=== PATIENT | male | born 1940 ===

== ENCOUNTER 2020-12-12 17:15 | Inpatient (IN) | payer MEDICARE ==
[~2020-12-12] VITALS: Ht 182.9 cm; Wt 78.7 kg
[2020-12-12 18:17] VITALS: BP 133/74
[2020-12-12 18:36] LABS: ALBUMIN/GLOBULIN RATIO 0.6 (1.0-1.7); CALCIUM 9.3 mg/dL (8.5-10.1); CREATININE 1.3 mg/dL (0.7-1.3); MAGNESIUM 2.3 mg/dL (1.8-2.4); POTASSIUM 4.1 mmol/L (3.5-5.1); TOTAL BILIRUBIN 0.6 mg/dL (0.2-1.0); TOTAL PROTEIN 7.9 g/dL (6.4-8.2)
[2020-12-12 18:52] LABS: BASO % 0 % (0-3); EOS % 0 % (0-3); HEMATOCRIT 42.4 % (39.0-53.0); HEMOGLOBIN 14.1 g/dL (13.0-17.5); LYMPH # 1.1 x10^3/uL (1.0-4.8); LYMPH % 11 % (24-48); MEAN CORPUSCULAR HEMOGLOBIN 33 pg (25-35); MEAN CORPUSCULAR HGB CONC 33 g/dL (31-37); MEAN CORPUSCULAR VOLUME 98 fL (79-100); MONO # 1.1 x10^3/uL (0.0-1.1); MONO % 11 % (0-9); NEUT # 7.4 x10^3uL (1.8-7.7); NEUT % 77 % (31-73); PLATELET COUNT 210 x10^3/uL (140-400); RED BLOOD COUNT 4.33 x10^6/uL (4.30-5.70); RED CELL DISTRIBUTION WIDTH 13.5 % (11.5-14.5); WHITE BLOOD COUNT 9.6 x10^3/uL (4.0-11.0)
[2020-12-12] MEDS ORDERED: LATA2.5D2 OU (19:42)
[2020-12-12] MEDS ORDERED: CHOL500021 PO (19:42)
[2020-12-12] MEDS ORDERED: FLUT50DI NS (19:42)
[2020-12-12] MEDS ORDERED: SERT25TA PO (19:42)
[2020-12-12] MEDS ORDERED: OLAN5TAB9 PO ×2 (19:42)
[2020-12-12] MEDS ORDERED: DONE10TA7 PO (19:42)
[2020-12-12] MEDS ORDERED: BROM2.5T15 PO (19:42)
[2020-12-12] MEDS ORDERED: QUET25TA5 PO (19:42)
[2020-12-12] MEDS ORDERED: MEMA10TA PO (19:42)
[2020-12-12] MEDS: OLANZapine 5 MG TABLET PO SCH (20:42)
[2020-12-12] MEDS: LATANOPROST 0.005% OPHTH SOLUTION 2.5ML BOTTLE. OU SCH (20:42)
[2020-12-12] MEDS: QUEtiapine 25 MG TABLET. PO PRN (20:42)
[2020-12-12] MEDS: FLUTICASONE 50MCG/NASAL SPRAY 16GM BOTTLE. NS SCH (20:42)
[2020-12-12] MEDS: DONEPEZIL HCL 10 MG TABLET PO SCH (20:42)
--- NOTE | 2020-12-12 22:08 | PDOC ---
Exam Note: Valente Note: Please also refer to the separate dictated note~for this date of service dictated separately.~Patient seen individually. Discussed the patient with Nursing staff reviewed the chart.~Reviewed interim history and current functioning. Reviewed vital signs,~Labs/ Radiology~and current medications noted below. Continue current treatment with the changes noted in the dictated addendum note Assessment: Vital Signs/I&O: Vital Signs Date Time Temp Pulse Resp B/P (MAP) Pulse Ox O2 Delivery O2 Flow Rate FiO2 12/12/20 20:30 Room Air 12/12/20 18:17 98.4 76 20 133/74 (93) 96 Labs: Laboratory Tests Test 12/12/20 18:05 12/12/20 18:10 SARS-CoV-2 Antigen (Rapid) Negative (NEGATIVE) White Blood Count 9.6 x10^3/uL (4.0-11.0) Red Blood Count 4.33 x10^6/uL (4.30-5.70) Hemoglobin 14.1 g/dL (13.0-17.5) Hematocrit 42.4 % (39.0-53.0) Mean Corpuscular Volume 98 fL (79-100) Mean Corpuscular Hemoglobin 33 pg (25-35) Mean Corpuscular Hemoglobin Concent 33 g/dL (31-37) Red Cell Distribution Width 13.5 % (11.5-14.5) Platelet Count 210 x10^3/uL (140-400) Neutrophils (%) (Auto) 77 % (31-73) H Lymphocytes (%) (Auto) 11 % (24-48) L Monocytes (%) (Auto) 11 % (0-9) H Eosinophils (%) (Auto) 0 % (0-3) Basophils (%) (Auto) 0 % (0-3) Neutrophils # (Auto) 7.4 x10^3uL (1.8-7.7) Lymphocytes # (Auto) 1.1 x10^3/uL (1.0-4.8) Monocytes # (Auto) 1.1 x10^3/uL (0.0-1.1) Eosinophils # (Auto) 0.0 x10^3/uL (0.0-0.7) Basophils # (Auto) 0.0 x10^3/uL (0.0-0.2) D-Dimer (Catrina) 5.04 mg/L (0.00-0.50) H Sodium Level 142 mmol/L (136-145) Potassium Level 4.1 mmol/L (3.5-5.1) Chloride Level 105 mmol/L (98-107) Carbon Dioxide Level 27 mmol/L (21-32) Anion Gap 10 (6-14) Blood Urea Nitrogen 41 mg/dL (8-26) H Creatinine 1.3 mg/dL (0.7-1.3) Estimated GFR (Cockcroft-Gault) 53.0 BUN/Creatinine Ratio 32 (6-20) H Glucose Level 123 mg/dL (70-99) H Calcium Level 9.3 mg/dL (8.5-10.1) Magnesium Level 2.3 mg/dL (1.8-2.4) Total Bilirubin 0.6 mg/dL (0.2-1.0) Aspartate Amino Transferase (AST) 25 U/L (15-37) Alanine Aminotransferase (ALT) 38 U/L (16-63) Alkaline Phosphatase 66 U/L (46-116) Total Protein 7.9 g/dL (6.4-8.2) Albumin 3.0 g/dL (3.4-5.0) L Albumin/Globulin Ratio 0.6 (1.0-1.7) L Current Medications: Meds: Current Medications Medications (Trade) Dose Ordered Sig/Farideh Route PRN Reason Start Time Stop Time Status Last Admin Dose Admin Donepezil HCl (Aricept) 10 mg QHS PO 12/12/20 21:00 12/12/20 20:42 Olanzapine (ZyPREXA) 5 mg QHS PO 12/12/20 21:00 12/12/20 20:42 Quetiapine Fumarate (SEROquel) 25 mg PRN Q6HRS PRN PO ANXIETY / AGITATION 12/12/20 19:45 12/12/20 20:42 I have reviewed the current psychotropics carefully including drug interactions. Risk benefit ratio favors no change other than as noted in my dictated progress note. HELIO RÍOS MD Dec 12, 2020 22:08
[2020-12-13 06:18] VITALS: BP 122/64
[2020-12-13] MEDS: SERTRALINE 25 MG TABLET. PO SCH (10:27)
[2020-12-13] MEDS: CHOLECALCIFEROL (VITAMIN D3) 1,000 UNIT TABLET PO SCH (10:27)
[2020-12-13] MEDS: MEMANTINE 10 MG TABLET. PO SCH ×2 (10:27→21:40)
[2020-12-13] MEDS: FLUTICASONE 50MCG/NASAL SPRAY 16GM BOTTLE. NS SCH ×2 (10:28→21:00)
[2020-12-13 10:55] VITALS: BP 121/73
--- NOTE | 2020-12-13 14:37 | HP ---
ADMIT DATE: 12/13/2020 HISTORY OF PRESENT ILLNESS: The patient is an 80-year-old male patient who apparently was living at home with his . However, he has been extremely agitated with aggressive behavior towards the family, progressive dementia, restless, fidgety, cannot sit still, unable to oppose or follow command, urinate in publics and progressing rapidly since 12/07. He was seen in the [facility] and was evaluated extensively there and apparently was diagnosed with dementia with behavioral disturbances. 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 However, the family was not interested in any further investigation and apparently was deemed stable to [facility] and apparently the patient was extremely restless there and very agitated, aggressive, unable to sit still, fidgety and unable to oppose or follow commands and was urinating in public and therefore, a decision was made to admit him to Med/Surg Unit in [facility] to be admitted eventually to [facility] for inpatient psychiatric stabilization. The patient is extremely demented, does not give any useful information. PAST MEDICAL HISTORY: Significant for dementia. 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 He also has paroxysmal atrial fibrillation, depression, had a history of stroke, had a CT scan showing old cerebral stroke. PAST SURGICAL HISTORY: Unremarkable. FAMILY HISTORY: Unobtainable. SOCIAL HISTORY: The patient is , living with his . Note that he has son who is his DPOA. ALLERGIES: He has no known drug allergies. MEDICATIONS: He is currently on following medications: He is on Aricept 10 mg at bedtime; sertraline 25 mg daily; olanzapine 5 mg every 4 hours as needed; olanzapine 5 mg at bedtime; quetiapine fumarate 25 mg every 6 hours; bromocriptine mesylate 2.5 mg every Thursday, Thursday, Thursday; Namenda 28 mg daily; fluticasone propionate (Flovent) 50 mcg nasal spray twice a day; latanoprost 1 drop to both eyes at bedtime and cholecalciferol ____ 4000 units once a day. REVIEW OF SYSTEMS: Unobtainable. PHYSICAL EXAMINATION: GENERAL: On arrival to the Emergency Room, the patient looked somewhat pale, but no jaundice or cyanosis. No lymphadenopathy, no thyromegaly. No jugular venous distention noted. No lower limb edema. VITAL SIGNS: His heart rate was 76, blood pressure was 133/74, temperature was 98.4, respiratory rate 20, and oxygen saturation was 96%. HEAD, EYES, EARS, NOSE AND THROAT: Normocephalic and atraumatic. NECK: Supple. HEART: Showed normal first and second heart sounds. No gallop, rub or murmur. CHEST: Clear to auscultation. No crepitation or rhonchi. ABDOMEN: Scaphoid, soft, nontender. NEUROLOGIC: He is awake, alert, opens eyes, ____ does not respond verbally. He seemed to be able to move his extremities spontaneously, although he is mostly bedbound. ASSESSMENT AND PLAN: We did reconcile all his medication and we ordered lab work including COVID-19 by PCR and once it becomes negative, the patient can be transferred upstairs for inpatient psychiatric stabilization to the [facility]. CHRIS RIOS MD DR: ELIUD/rhys JOB#: [id number] / [id number]
[2020-12-13 16:06] VITALS: BP 145/81
--- NOTE | 2020-12-13 18:36 | PN ---
DATE: 12/13/2020 SUBJECTIVE: The patient is an 80-year-old male patient who was admitted to [address] [place] [address] in [facility] as a transfer from [facility] which is memory unit at [facility] where he was admitted after short stay at [facility]. Apparently there, he has been agitated, aggressive with progressive dementia, restless, fidgety, cannot sit still, hyperverbal, unable to focus or follow command, urinating in the public, talking about the dog when there is no dog. On his most recent ER visit, the psychiatrist added Seroquel, scheduled melatonin and was placed in Memory Care Unit; however, his symptom has dramatically worsened and therefore, he was admitted to this facility. When I saw him today, he was resting flat, comfortably in bed, in no apparent distress. He continued to be nonverbal and generally grossly intact. LABORATORY DATA: Showed that his white cell count was 9600, hemoglobin 14, hematocrit 42, MCV 98 and platelet count of 210,000 with a manual differential shows 77% polymorphs, 11% lymphocytes and 11% monocytes. His D-dimer was high at 5.04. His chemistry showed a serum sodium 142, potassium 4.1, chloride 105, bicarbonate 27, anion gap of 10, BUN 41, creatinine 1.3, estimated GFR was 53 mL per minute. His glucose 123, calcium was 9.3, magnesium was 2.3. Total bilirubin, AST, ALT, alkaline phosphatase were normal. Total protein 7.9, albumin 3. His rapid coronavirus testing was negative. Medically, the patient has multiple medical problems including obviously dementia that is progressive. He has also behavioral disturbances, depression. He is known to have pituitary microadenoma, atrial fibrillation and history of cerebrovascular accident. Plan is to obviously consult, Dr. Horton to assist with his management. Once his coronavirus by PCR was negative he will be transferred to [facility] for inpatient psychiatric stabilization. CHRIS RIOS MD DR: ELIUD/rhys JOB#: [id number] / [id number]
[2020-12-13 19:47] VITALS: BP 135/68
[2020-12-13] MEDS ORDERED: ACETAMINOPHEN 325 MG TABLET PO PRN (20:00)
[2020-12-13] MEDS: LATANOPROST 0.005% OPHTH SOLUTION 2.5ML BOTTLE. OU SCH (21:00)
[2020-12-13] MEDS ORDERED: VANCOMYCIN 1.75 GM in IV NORMAL SALINE 500ML 500 ML IV ONE (21:00)
[2020-12-13 21:26] LABS: C REACTIVE PROTEIN 185.3 mg/L (0-3.3); URIC ACID 3.2 mg/dL (3.5-7.2)
--- NOTE | 2020-12-13 21:36 | RAD ---
INDICATION: Reason: ELEVATED TEMPERATURE / Spl. Instructions: / History: COMPARISON: None. FINDINGS: Single view of chest obtained. Hypoexpanded examination. No definite focal airspace consolidation or edema. Calcific atherosclerosis . Degenerative changes of shoulder and spine IMPRESSION: * Hypoexpanded exam without definite focal airspace consolidation. Electronically signed by: Arash Rangel MD (12/13/2020 9:33 PM) [id number]
[2020-12-13] MEDS: DONEPEZIL HCL 10 MG TABLET PO SCH (21:39)
[2020-12-13] MEDS: OLANZapine 5 MG TABLET PO SCH (21:40)
--- NOTE | 2020-12-13 21:49 | PDOC ---
Exam Note: Valente Note: PSYCHIATRIC CONSULT/FOLLOW UP This note is a late entry for 12/12/2020 covers elements not covered in my initial note. Subjective: The patient is an 80-year-old male seen on Room no. 111, [facility] for his psychiatric consult requested by Dr. Gilbert on account of the patients progressive confusion, history of Alzheimers disease. He had been quite aggressive, disruptive at home. He initially lived with his and daughter. He was hitting, kicking, paranoid. Reportedly outpatient treatment with Zyprexa had not been very effective. He was medically stabilized at [facility] in [place] and then was at [facility] but unmanageable at that facility due to his psychosis and agitation. We were contacted to stabilize him psychiatrically on the [facility] and he is on [facility] awaiting COVID-19 screen negative before transitioning there. Review of Systems: No CV, , pulmonary, eye, ENT system symptoms on review. Reliability poor. Mental Status Exam: The patient is oriented to himself. Insight, judgment, recent and remote memory, attention and concentration, fund of knowledge is poor consistent with his diagnoses. Laboratory Data: Reviewed. Impression: Major neurocognitive disorder Alzheimer vascular with delusion, depression, behavioral disturbance. Rest unchanged. Plan: Continue current psychotropics. Once the COVID screen is negative, we will transition to [facility] for further psychiatric stabilization. Assessment: Vital Signs/I&O: Vital Signs Date Time Temp Pulse Resp B/P (MAP) Pulse Ox O2 Delivery O2 Flow Rate FiO2 12/13/20 19:47 102.6 99 20 135/68 (90) 97 Room Air I & O 12/12/20 12/12/20 12/13/20 15:00 23:00 07:00 Intake Total 240 ml 480 ml Balance 240 ml 480 ml Labs: Laboratory Tests Test 12/13/20 20:38 Uric Acid 3.2 mg/dL (3.5-7.2) L C-Reactive Protein 185.3 mg/L (0-3.3) H Current Medications: Meds: Laboratory Tests Test 12/13/20 20:38 Uric Acid 3.2 mg/dL C-Reactive Protein 185.3 mg/L Current Medications Medications (Trade) Dose Ordered Sig/Farideh Route PRN Reason Start Time Stop Time Status Last Admin Dose Admin Vitamin D (Vitamin D3) 4,000 unit DAILY PO 12/13/20 09:00 12/13/20 10:27 Donepezil HCl (Aricept) 10 mg QHS PO 12/12/20 21:00 12/13/20 21:39 Latanoprost (Xalatan) 1 drop QHS OU 12/12/20 21:00 Memantine (Namenda) 10 mg BID PO 12/13/20 09:00 12/13/20 21:40 Olanzapine (ZyPREXA ZYDIS) 5 mg PRN Q4HRS PRN PO ANXIETY / AGITATION 12/12/20 20:00 Olanzapine (ZyPREXA) 5 mg QHS PO 12/12/20 21:00 12/13/20 21:40 Quetiapine Fumarate (SEROquel) 25 mg PRN Q6HRS PRN PO ANXIETY / AGITATION 12/12/20 19:45 12/12/20 20:42 Sertraline HCl (Zoloft) 25 mg DAILY PO 12/13/20 09:00 12/13/20 10:27 Bromocriptine Mesylate (Parlodel) 2.5 mg MoWeFr@0900 PO 12/14/20 09:00 Fluticasone Propionate (Flonase) 2 spray BID NS 12/12/20 21:00 12/13/20 10:28 Acetaminophen (Tylenol) 650 mg PRN Q6HRS PRN PO MILD PAIN / TEMP > 100.3'F 12/13/20 20:00 12/13/20 21:40 Vancomycin HCl (Vanco Per Pharmacy) 1 each PRN DAILY PRN MC SEE COMMENTS 12/13/20 22:00 Piperacillin Sod/ Tazobactam Sod 3.375 gm/Sodium Chloride 50 ml @ 100 mls/hr Q6HRS IV 12/14/20 00:00 Sodium Chloride 1,000 ml @ 100 mls/hr Q10H IV 12/13/20 21:00 Vancomycin HCl 1.75 gm/Sodium Chloride 500 ml @ 250 mls/hr 1X ONCE IV 12/13/20 21:00 12/13/20 22:59 Current Medications Medications (Trade) Dose Ordered Sig/Farideh Route PRN Reason Start Time Stop Time Status Last Admin Dose Admin Vitamin D (Vitamin D3) 4,000 unit DAILY PO 12/13/20 09:00 12/13/20 10:27 Memantine (Namenda) 10 mg BID PO 12/13/20 09:00 12/13/20 21:40 Sertraline HCl (Zoloft) 25 mg DAILY PO 12/13/20 09:00 12/13/20 10:27 Acetaminophen (Tylenol) 650 mg PRN Q6HRS PRN PO MILD PAIN / TEMP > 100.3'F 12/13/20 20:00 12/13/20 21:40 I have reviewed the current psychotropics carefully including drug interactions. Risk benefit ratio favors no change other than as noted in my dictated progress note. Diagnosis: Problems: (1) Major neurocognitive disorder (2) Dementia in Alzheimer's disease with delusions (3) Dementia in Alzheimer's disease with depression (4) Dementia of the Alzheimer's type with early onset with behavioral disturbance (5) Dementia, vascular, with depression (6) Dementia, vascular, with delusions (7) Anxiety disorder, unspecified (8) Impulse control disorder, unspecified HELIO RÍOS MD Dec 13, 2020 21:48
[2020-12-13] MEDS: IV NORMAL SALINE 1,000ML 1,000 ML IV SCH (21:52)
[2020-12-13] MEDS: VANCOMYCIN PER PHARMACY MC PRN (22:13)
[2020-12-14] MEDS: PIPERACILLIN/TAZOBACTAM 3.375 GM in IV NORMAL SALINE 50ML 50 ML IV SCH ×4 (00:06→18:00)
[2020-12-14 00:32] LABS: HEMOGLOBIN A1C 5.6 % (4.8-5.6)
--- NOTE | 2020-12-14 04:26 | EKG ---
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
[2020-12-14 05:28] VITALS: BP 114/67
[2020-12-14] MEDS: IV NORMAL SALINE 1,000ML 1,000 ML IV SCH ×2 (07:00→17:00)
[2020-12-14] MEDS: FLUTICASONE 50MCG/NASAL SPRAY 16GM BOTTLE. NS SCH ×2 (08:16→19:54)
[2020-12-14] MEDS: MEMANTINE 10 MG TABLET. PO SCH ×2 (08:19→19:53)
[2020-12-14] MEDS: SERTRALINE 25 MG TABLET. PO SCH (08:19)
[2020-12-14] MEDS: BROMOCRIPTINE MESYLATE 2.5 MG PO SCH (08:20)
[2020-12-14] MEDS: CHOLECALCIFEROL (VITAMIN D3) 1,000 UNIT TABLET PO SCH (08:20)
--- NOTE | 2020-12-14 09:05 | PDOC ---
Exam Note: Valente Note: This note is a late entry for 12/13/2020 covers elements not covered in my initial note. Subjective: The patient was reviewed on rounds on 12/13/2020. Discussed with nursing staff and reviewed the chart. Overall the patient remains confused but has not been aggressive as such. Plan was to transfer him to the [facility] ([facility]) on 12/13 but he is running a low-grade temperature, questionable gout to account for it or some undefined infection and I will defer to Dr. Gilbert and wait till he is medically stable before transitioning to [facility]. He is somewhat sedated. Review of Systems: No CV, , pulmonary, eye, ENT system symptoms on review. Reliability poor. Mental Status Exam: The patient is oriented to himself. Insight, judgment, memory is impaired. Language function intact. Mood and affect somewhat withdrawn. Laboratory Data: Reviewed. Impression: Major neurocognitive disorder Alzheimer vascular with delusion, depression, behavioral disturbance. Plan: Await transition to [facility] once medically stable. Assessment: Vital Signs/I&O: Vital Signs Date Time Temp Pulse Resp B/P (MAP) Pulse Ox O2 Delivery O2 Flow Rate FiO2 12/14/20 05:28 97.1 66 18 114/67 (83) 92 Room Air I & O 12/13/20 12/13/20 12/14/20 15:00 23:00 07:00 Intake Total 690 ml 250 ml 700 ml Balance 690 ml 250 ml 700 ml Labs: Laboratory Tests Test 12/13/20 20:38 Uric Acid 3.2 mg/dL (3.5-7.2) L C-Reactive Protein 185.3 mg/L (0-3.3) H Current Medications: Meds: Laboratory Tests Test 12/13/20 20:38 Uric Acid 3.2 mg/dL C-Reactive Protein 185.3 mg/L Current Medications Medications (Trade) Dose Ordered Sig/Farideh Route PRN Reason Start Time Stop Time Status Last Admin Dose Admin Vitamin D (Vitamin D3) 4,000 unit DAILY PO 12/13/20 09:00 12/14/20 08:20 Donepezil HCl (Aricept) 10 mg QHS PO 12/12/20 21:00 12/13/20 21:39 Latanoprost (Xalatan) 1 drop QHS OU 12/12/20 21:00 Memantine (Namenda) 10 mg BID PO 12/13/20 09:00 12/14/20 08:19 Olanzapine (ZyPREXA ZYDIS) 5 mg PRN Q4HRS PRN PO ANXIETY / AGITATION 12/12/20 20:00 Olanzapine (ZyPREXA) 5 mg QHS PO 12/12/20 21:00 12/13/20 21:40 Quetiapine Fumarate (SEROquel) 25 mg PRN Q6HRS PRN PO ANXIETY / AGITATION 12/12/20 19:45 12/12/20 20:42 Sertraline HCl (Zoloft) 25 mg DAILY PO 12/13/20 09:00 12/14/20 08:19 Bromocriptine Mesylate (Parlodel) 2.5 mg MoWeFr@0900 PO 12/14/20 09:00 12/14/20 08:20 Fluticasone Propionate (Flonase) 2 spray BID NS 12/12/20 21:00 12/14/20 08:16 Acetaminophen (Tylenol) 650 mg PRN Q6HRS PRN PO MILD PAIN / TEMP > 100.3'F 12/13/20 20:00 12/13/20 21:40 Vancomycin HCl (Vanco Per Pharmacy) 1 each PRN DAILY PRN MC SEE COMMENTS 12/13/20 22:00 12/13/20 22:13 Piperacillin Sod/ Tazobactam Sod 3.375 gm/Sodium Chloride 50 ml @ 100 mls/hr Q6HRS IV 12/14/20 00:00 12/14/20 06:05 Sodium Chloride 1,000 ml @ 100 mls/hr Q10H IV 12/13/20 21:00 12/14/20 07:00 Vancomycin HCl 1.75 gm/Sodium Chloride 500 ml @ 250 mls/hr 1X ONCE IV 12/13/20 21:00 12/13/20 22:59 DC 12/13/20 21:53 Vancomycin HCl 1.25 gm/Sodium Chloride 250 ml @ 166.667 mls/hr Q24H IV 12/14/20 21:00 Vancomycin HCl (Vancomycin Trough Level) 1 each 1X ONCE MC 12/15/20 20:30 12/15/20 20:31 Current Medications Medications (Trade) Dose Ordered Sig/Farideh Route PRN Reason Start Time Stop Time Status Last Admin Dose Admin Bromocriptine Mesylate (Parlodel) 2.5 mg MoWeFr@0900 PO 12/14/20 09:00 12/14/20 08:20 Acetaminophen (Tylenol) 650 mg PRN Q6HRS PRN PO MILD PAIN / TEMP > 100.3'F 12/13/20 20:00 12/13/20 21:40 Vancomycin HCl (Vanco Per Pharmacy) 1 each PRN DAILY PRN MC SEE COMMENTS 12/13/20 22:00 12/13/20 22:13 Piperacillin Sod/ Tazobactam Sod 3.375 gm/Sodium Chloride 50 ml @ 100 mls/hr Q6HRS IV 12/14/20 00:00 12/14/20 06:05 Sodium Chloride 1,000 ml @ 100 mls/hr Q10H IV 12/13/20 21:00 12/14/20 07:00 Vancomycin HCl 1.75 gm/Sodium Chloride 500 ml @ 250 mls/hr 1X ONCE IV 12/13/20 21:00 12/13/20 22:59 DC 12/13/20 21:53 I have reviewed the current psychotropics carefully including drug interactions. Risk benefit ratio favors no change other than as noted in my dictated progress note. Diagnosis: Problems: (1) Impulse control disorder, unspecified (2) Anxiety disorder, unspecified (3) Dementia, vascular, with depression (4) Dementia, vascular, with delusions (5) Dementia in Alzheimer's disease with depression (6) Dementia in Alzheimer's disease with delusions (7) Dementia of the Alzheimer's type with early onset with behavioral disturba nce (8) Major neurocognitive disorder HELIO RÍOS MD Dec 14, 2020 09:05
[2020-12-14 10:34] VITALS: BP 120/68
[2020-12-14 11:06] LABS: BASO # 0.1 x10^3/uL (0.0-0.2); BASO % 1 % (0-3); EOS % 0 % (0-3); HEMATOCRIT 36.5 % (39.0-53.0); HEMOGLOBIN 11.8 g/dL (13.0-17.5); LYMPH # 0.9 x10^3/uL (1.0-4.8); LYMPH % 11 % (24-48); MEAN CORPUSCULAR HEMOGLOBIN 32 pg (25-35); MEAN CORPUSCULAR HGB CONC 33 g/dL (31-37); MEAN CORPUSCULAR VOLUME 99 fL (79-100); MONO % 12 % (0-9); NEUT # 6.3 x10^3uL (1.8-7.7); NEUT % 76 % (31-73); PLATELET COUNT 182 x10^3/uL (140-400); RED BLOOD COUNT 3.68 x10^6/uL (4.30-5.70); RED CELL DISTRIBUTION WIDTH 13.3 % (11.5-14.5); WHITE BLOOD COUNT 8.3 x10^3/uL (4.0-11.0)
[2020-12-14 11:18] LABS: CALCIUM 8.4 mg/dL (8.5-10.1); CREATININE 0.9 mg/dL (0.7-1.3)
[2020-12-14 11:23] LABS: ALBUMIN 2.1 g/dL (3.4-5.0); ALBUMIN/GLOBULIN RATIO 0.5 (1.0-1.7); TOTAL BILIRUBIN 0.8 mg/dL (0.2-1.0); TOTAL PROTEIN 6.6 g/dL (6.4-8.2)
--- NOTE | 2020-12-14 11:48 | PN ---
DATE: 12/14/2020 SUBJECTIVE: The patient is resting, slightly propped up in bed, in no apparent distress. He is extremely demented; however, he did spike his temperature last night up to 102.6. There was some suggestion it might have redness around his right knee; however, there is no other localizing sign. We did pancultured him and sent urine and blood for culture and sensitivity. He has had a chest x-ray. We added also uric acid and CRP. We did start him actually on IV vancomycin and Zosyn. PHYSICAL EXAMINATION: GENERAL: When I saw him this morning, he was resting slightly propped up in bed, in no apparent respiratory distress. There was no pallor, jaundice or cyanosis. No lymphadenopathy. No thyromegaly. No jugular venous distension. No lower limb edema. VITAL SIGNS: His heart rate was 66, blood pressure was 114/67, temperature was 97.1, respiratory rate was 18, and oxygen saturation was 92%. HEAD, EYES, EARS, NOSE, AND THROAT: Showed normocephalic, atraumatic. NECK: Supple. HEART: Normal first and second heart sounds. No gallop or murmur. CHEST: Clear to auscultation. No crepitation or rhonchi. ABDOMEN: Distended, soft, nontender. NEUROLOGIC: He was demented, but without any obvious lateralizing sign. He is able to move his upper extremities without difficulty. He has severe pain whenever we passively move his lower extremities both sides. He definitely has effusion in both knees, but there is no overlying redness. His intake over the last 24 hours was 720. No output was recorded. LABORATORY DATA: His lab this morning is still pending at the time of this dictation. However, yesterday, we checked his uric acid and it was only 3.2. His C-reactive protein was 185 mg/dL, which is high. ASSESSMENT AND PLAN: 1. The patient has fever, the source of which is not very clear. Chest x-ray was unremarkable and he was supposed to have urine for urinalysis that was not done yet. My plan is to continue with IV antibiotic. I will arrange for him to have a chest x-ray of the pelvis and both hip joint as well as knee joints and decide on further management accordingly. He also has pituitary macroadenoma, for which he was on bromocriptine. 2. Paroxysmal atrial fibrillation, currently rate controlled, not anticoagulated 3. History of depression and had had a stroke. CHRIS RIOS MD DR: ELIUD/rhys JOB#: [id number] / [id number]
[2020-12-14] MEDS: QUEtiapine 25 MG TABLET. PO PRN (12:57)
--- NOTE | 2020-12-14 15:55 | RAD ---
Hip one view with pelvis. HISTORY: Pain and inability to move Single view was taken of the pelvis. The iliac crest on the left was not completely evaluated. A pelv ic fracture is not identified. There is degenerative disc disease in the lower lumbar spine. There is slight spurring from mild arthritis at the left hip. Additional views of the right hip show osteoarthritis with mild joint space narrowing and spurring on the femoral head. There is no acute fracture. IMPRESSION: 1. Mild arthritis left hip. 2. Moderate to severe osteoarthritis right hip. Electronically signed by: Ernesto Decker MD (12/14/2020 3:53 PM) [facility]
--- NOTE | 2020-12-14 15:58 | RAD ---
Bilateral knees 2 views each history: Pain Right knee 2 views the right knee show evidence of osteoarthritis. There is joint space narrowing in the medial joint compartment. There is chondrocalcinosis. There is a joint effusion. Left knee AP and lateral views of the left knee show evidence of osteoarthritis. There is joint space narrowing medially. There is chondrocalcinosis. There is a joint effusion. IMPRESSION: 1. 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 2. Bilateral chondrocalcinosis. 3. Bilateral joint effusions. Electronically signed by: Ernesto Decker MD (12/14/2020 3:55 PM) [facility]
[2020-12-14 19:37] VITALS: BP 120/74
[2020-12-14] MEDS: OLANZapine 5 MG TABLET PO SCH (19:53)
[2020-12-14] MEDS: LATANOPROST 0.005% OPHTH SOLUTION 2.5ML BOTTLE. OU SCH (19:53)
[2020-12-14] MEDS: DONEPEZIL HCL 10 MG TABLET PO SCH (19:53)
[2020-12-14] MEDS: VANCOMYCIN 1.25 GM in IV NORMAL SALINE 250ML 250 ML IV SCH (19:53)
[2020-12-15] MEDS: PIPERACILLIN/TAZOBACTAM 3.375 GM in IV NORMAL SALINE 50ML 50 ML IV SCH ×5 (00:15→23:38)
[2020-12-15 05:00] VITALS: BP 105/64
[2020-12-15] MEDS: IV NORMAL SALINE 1,000ML 1,000 ML IV SCH ×3 (05:07→23:38)
[2020-12-15] MEDS: FLUTICASONE 50MCG/NASAL SPRAY 16GM BOTTLE. NS SCH ×2 (08:56→21:15)
[2020-12-15] MEDS: MEMANTINE 10 MG TABLET. PO SCH ×2 (08:56→21:14)
[2020-12-15] MEDS: CHOLECALCIFEROL (VITAMIN D3) 1,000 UNIT TABLET PO SCH (08:56)
[2020-12-15] MEDS: SERTRALINE 25 MG TABLET. PO SCH (08:57)
[2020-12-15] MEDS ORDERED: LIDOCAINE 2% 20 ML VIAL. IJ ONE (10:15)
[2020-12-15] MEDS: NAPROXEN 500 MG TABLET PO SCH ×2 (11:30→21:14)
[2020-12-15] MEDS: QUEtiapine 25 MG TABLET. PO PRN (12:21)
[2020-12-15 15:30] LABS: HEMATOCRIT 31.2 % (39.0-53.0); HEMOGLOBIN 10.2 g/dL (13.0-17.5); RED BLOOD COUNT 3.17 x10^6/uL (4.30-5.70); RED CELL DISTRIBUTION WIDTH 13.6 % (11.5-14.5); WHITE BLOOD COUNT 5.1 x10^3/uL (4.0-11.0)
[2020-12-15 15:38] LABS: ALBUMIN 1.7 g/dL (3.4-5.0); ALBUMIN/GLOBULIN RATIO 0.4 (1.0-1.7); CALCIUM 8.1 mg/dL (8.5-10.1); CREATININE 0.9 mg/dL (0.7-1.3); POTASSIUM 3.9 mmol/L (3.5-5.1); TOTAL BILIRUBIN 0.7 mg/dL (0.2-1.0); TOTAL PROTEIN 5.6 g/dL (6.4-8.2)
[2020-12-15 19:42] VITALS: BP 97/59
[2020-12-15 20:54] LABS: VANC TR 5.2 mcg/mL (10.0-20.0)
[2020-12-15] MEDS: OLANZapine 5 MG TABLET PO SCH (21:14)
[2020-12-15] MEDS: DONEPEZIL HCL 10 MG TABLET PO SCH (21:14)
[2020-12-15] MEDS: VANCOMYCIN 1.25 GM in IV NORMAL SALINE 250ML 250 ML IV SCH (21:15)
[2020-12-15] MEDS: LATANOPROST 0.005% OPHTH SOLUTION 2.5ML BOTTLE. OU SCH (21:15)
[2020-12-16] MEDS: VANCOMYCIN PER PHARMACY MC PRN (01:41)
--- NOTE | 2020-12-16 04:20 | PN ---
DATE: SUBJECTIVE: The patient is resting flat in bed comfortably, in no apparent distress. He is extremely demented and does not really give any useful information; however, passive movement of both knee joints elicit pain. Clinically, he has bilateral knee effusion and x-ray of both knee joints showed that the patient has osteoarthritis of both knee joints. He has bilateral chondrocalcinosis and bilateral joint effusion. We did start him on IV antibiotic in the form of Zosyn and vancomycin for possible lower extremity cellulitis; however, I believe the patient's pain is mostly due to chondrocalcinosis and therefore, under strict aseptic technique, I drained about 40 mL of yellowish fluid after anesthetizing the skin. The patient tolerated the procedure very well and synovial fluid was sent for cell count, gram-stain, culture and sensitivity as well as for crystals. I will obviously continue with IV antibiotic for now and also start him on nonsteroidal anti-inflammatory medication to see if that will help the pain. PHYSICAL EXAMINATION: GENERAL: When I examined him this morning, he looked pale, but not jaundiced or cyanosed. No lymphadenopathy, no thyromegaly. No jugular venous distention. No lower limb edema. VITAL SIGNS: His heart rate was 80, blood pressure was 105/64, temperature was 98.4, respiratory rate was 16, and oxygen saturation was 96%. HEAD, EYES, EARS, NOSE AND THROAT: Showed normocephalic and atraumatic. NECK: Supple. HEART: Showed normal first and second heart sounds. No gallop, rub or murmur. CHEST: Clear to auscultation. No crepitation or rhonchi. ABDOMEN: Distended, soft, nontender. NEUROLOGIC: He is demented, but without any obvious lateralizing sign. All his cranial nerves are intact. He moves his upper extremities ____ extremities. His intake and output are incompletely recorded. LABORATORY DATA: His lab work as of yesterday showed white cell count of 6300, hemoglobin 12, hematocrit 36, MCV 99 and platelet count of 182,000. His serum sodium was 145, potassium 4, chloride 110, bicarbonate 28, anion gap of 7, BUN 28, creatinine 0.9, estimated GFR was 81 mL per minute, his glucose 124, calcium was 8.4. Total bilirubin, AST, ALT, alkaline phosphatase were normal. Total protein 6.6, albumin was 2.1. His C-reactive protein was high ____ mg/dL and procalcitonin was 1.57. ASSESSMENT: 1. Fever without any obvious source, the patient has bilateral knee effusion for which he underwent ____ aspirated 40 mL from the left knee joint, sent it for gram-stain and culture and sensitivity as well as crystals and cell count. His chest x-ray was unremarkable. 2. Other medical problems include: A. Pituitary adenoma, for which he is on bromocriptine. B. Paroxysmal atrial fibrillation, rate controlled, not anticoagulated. C. History of depression. D. The patient had a stroke. PLAN: My plan is to start him on also nonsteroidal anti-inflammatory medication and decide on further management according to his response. CHRIS RIOS MD DR: ELIUD/rhys JOB#: [id number] / [id number]
[2020-12-16] MEDS: PIPERACILLIN/TAZOBACTAM 3.375 GM in IV NORMAL SALINE 50ML 50 ML IV SCH ×3 (05:09→17:38)
[2020-12-16 05:30] VITALS: BP 131/64
[2020-12-16] MEDS: LACTOBACILLUS RHAMNOSUS GG 1 CAPSULE. PO SCH ×2 (08:00→20:36)
[2020-12-16] MEDS: CHOLECALCIFEROL (VITAMIN D3) 1,000 UNIT TABLET PO SCH (08:00)
[2020-12-16] MEDS: SERTRALINE 25 MG TABLET. PO SCH (08:00)
[2020-12-16] MEDS: MEMANTINE 10 MG TABLET. PO SCH ×2 (08:00→20:36)
[2020-12-16] MEDS: NAPROXEN 500 MG TABLET PO SCH ×2 (08:00→20:36)
[2020-12-16] MEDS: FLUTICASONE 50MCG/NASAL SPRAY 16GM BOTTLE. NS SCH ×2 (08:01→20:37)
[2020-12-16] MEDS: IV NORMAL SALINE 1,000ML 1,000 ML IV SCH ×2 (09:00→20:35)
[2020-12-16] MEDS: VANCOMYCIN 1.25 GM in IV NORMAL SALINE 250ML 250 ML IV SCH ×2 (09:31→20:36)
[2020-12-16 10:38] VITALS: BP 105/61
--- NOTE | 2020-12-16 11:21 | PN ---
DATE: 12/16/2020 SUBJECTIVE: The patient is actually doing much better. He was managed to get out of the bed and sat on the bedside, managed to feed himself. He is now able to move his lower extremities. I did aspirate about 40 mL of yellowish fluid from the left knee joint and send it for cell count and differential, also to be examined under polarized light for crystals as well as gram stain and culture and sensitivity. OBJECTIVE; GENERAL: When I saw him today, he looked well and was clearly in no apparent respiratory distress. There is no pallor, jaundice or cyanosis. No lymphadenopathy, no thyromegaly. No jugular venous distention. No lower limb edema. VITAL SIGNS: His heart rate was 65, blood pressure was 131/64, temperature was 98.3, respiratory rate was 16, and oxygen saturation was 94%. HEAD, EYES, EARS, NOSE, AND THROAT: Showed normocephalic, atraumatic. NECK: Supple. HEART: Showed normal first and second heart sounds. No gallop, rub or murmur. CHEST: Clear to auscultation. No crepitation or rhonchi. ABDOMEN: Distended, soft, nontender. NEUROLOGIC: He is demented; however, grossly all his cranial nerves are intact. He is able to move his extremities without difficulty compared to yesterday and day before. His intake was 700, output incompletely recorded. LABORATORY DATA: His lab work as of yesterday, his serum sodium 146, potassium 3.9, chloride 113, bicarbonate 25, anion gap of 8, BUN 30, creatinine 0.9, estimated GFR was 81 mL per minute, his glucose 106, calcium was 8.1. Total bilirubin, AST, ALT, alkaline phosphatase were normal. Total protein 5.6, albumin was 1.7. ASSESSMENT: 1. Fever without any obvious source. 2. The patient has bilateral knee effusion for which he underwent right knee aspiration and 40 mL of yellowish fluid was sent for gram stain, culture and sensitivity, cell count as well as to be examined under polarized light. 3. The patient has other medical problems including: A. Pituitary adenoma, for which he is on bromocriptine. B. Paroxysmal atrial fibrillation, rate controlled, not anticoagulated. C. History of depression. D. History of stroke. PLAN: My plan is to continue with naproxen. His blood culture was so far negative. Await the result of the synovial fluid culture and sensitivity. I will consult also physical and occupational therapy to work with him now that his pain is much better controlled. CHRIS RIOS MD DR: ELIUD/rhys JOB#: [id number] / [id number]
[2020-12-16 14:59] VITALS: BP 129/70
[2020-12-16] MEDS: DONEPEZIL HCL 10 MG TABLET PO SCH (20:36)
[2020-12-16] MEDS: OLANZapine 5 MG TABLET PO SCH (20:36)
[2020-12-16] MEDS: LATANOPROST 0.005% OPHTH SOLUTION 2.5ML BOTTLE. OU SCH (20:36)
[2020-12-17] MEDS: PIPERACILLIN/TAZOBACTAM 3.375 GM in IV NORMAL SALINE 50ML 50 ML IV SCH ×5 (00:34→23:11)
[2020-12-17 05:33] VITALS: BP 117/76
[2020-12-17 07:10] LABS: BASO % 1 % (0-3); EOS # 0.1 x10^3/uL (0.0-0.7); EOS % 3 % (0-3); HEMATOCRIT 32.9 % (39.0-53.0); HEMOGLOBIN 10.6 g/dL (13.0-17.5); LYMPH # 0.9 x10^3/uL (1.0-4.8); LYMPH % 19 % (24-48); MEAN CORPUSCULAR HEMOGLOBIN 32 pg (25-35); MEAN CORPUSCULAR HGB CONC 32 g/dL (31-37); MEAN CORPUSCULAR VOLUME 99 fL (79-100); MONO # 0.4 x10^3/uL (0.0-1.1); MONO % 9 % (0-9); NEUT # 3.3 x10^3uL (1.8-7.7); NEUT % 69 % (31-73); PLATELET COUNT 211 x10^3/uL (140-400); RED BLOOD COUNT 3.32 x10^6/uL (4.30-5.70); RED CELL DISTRIBUTION WIDTH 13.7 % (11.5-14.5); WHITE BLOOD COUNT 4.8 x10^3/uL (4.0-11.0)
[2020-12-17 07:25] LABS: VANC TR 16.5 mcg/mL (10.0-20.0)
[2020-12-17 07:30] LABS: ALBUMIN 1.9 g/dL (3.4-5.0); ALBUMIN/GLOBULIN RATIO 0.5 (1.0-1.7); C REACTIVE PROTEIN 111.5 mg/L (0-3.3); CALCIUM 8.2 mg/dL (8.5-10.1); CREATININE 0.7 mg/dL (0.7-1.3); GFR 108.2; POTASSIUM 3.4 mmol/L (3.5-5.1); TOTAL BILIRUBIN 0.7 mg/dL (0.2-1.0); TOTAL PROTEIN 5.7 g/dL (6.4-8.2)
[2020-12-17] MEDS: VANCOMYCIN 1.25 GM in IV NORMAL SALINE 250ML 250 ML IV SCH (09:42)
[2020-12-17] MEDS: FLUTICASONE 50MCG/NASAL SPRAY 16GM BOTTLE. NS SCH ×2 (09:43→20:20)
[2020-12-17] MEDS: LACTOBACILLUS RHAMNOSUS GG 1 CAPSULE. PO SCH ×2 (09:44→20:20)
[2020-12-17] MEDS: NAPROXEN 500 MG TABLET PO SCH ×2 (09:45→20:20)
[2020-12-17] MEDS: MEMANTINE 10 MG TABLET. PO SCH ×2 (09:45→20:20)
[2020-12-17] MEDS: CHOLECALCIFEROL (VITAMIN D3) 1,000 UNIT TABLET PO SCH (09:45)
[2020-12-17] MEDS: BROMOCRIPTINE MESYLATE 2.5 MG PO SCH (09:46)
[2020-12-17] MEDS: SERTRALINE 25 MG TABLET. PO SCH (09:55)
[2020-12-17] MEDS: QUEtiapine 25 MG TABLET. PO PRN ×2 (11:08→18:36)
--- NOTE | 2020-12-17 11:16 | PN ---
DATE: 12/17/2020 SUBJECTIVE: The patient is resting, slightly propped up in bed, in no apparent distress. He continued to be extremely confused, but now is able to move his lower extremities, although continued to be wobbly on his feet. There is no redness or tenderness in both knees. Continued to have probably some effusion, both knees. He is afebrile now for more than 72 hours. His blood culture so far negative with no growth after 3 days. His synovial fluid Gram-stain showed no organisms seen and so far, the synovial fluid cultures showed no growth. PHYSICAL EXAMINATION: GENERAL: When I examined him, he looked well and was clearly in no apparent respiratory distress, pale, but no jaundice, cyanosis or thyromegaly. No jugular venous distention. No lower limb edema. VITAL SIGNS: Her heart rate was 61, blood pressure was 117/76, temperature 97.9, respiratory rate 20, and oxygen saturation was 95% on room air. HEAD, EYES, EARS, NOSE, AND THROAT: Showed normocephalic, atraumatic. NECK: Supple. HEART: Showed normal first and second heart sounds. No gallop or murmur. CHEST: Clear to auscultation. No crepitation or rhonchi. ABDOMEN: Distended, soft, nontender. NEUROLOGIC: He was demented, but without any obvious lateralizing sign. All his cranial nerves are intact. He moves extremities without difficulty, although he is very unsteady on his feet. His intake over the last 24 hours was 1600. No output was recorded. LABORATORY DATA: As of this morning, his white cell count was 4800, hemoglobin 11, hematocrit 33, MCV 99, and platelet count 211,000 with normal manual differential. His chemistry showed a serum sodium 149, potassium 3.4, chloride 115, bicarbonate 27, anion gap of 7, BUN 23, creatinine 0.7, estimated GFR was 118 mL per minute. His glucose 95, calcium was 8.2. Total bilirubin, AST, ALT, alkaline phosphatase were normal. His C-reactive protein is down to 111 from 185. His total protein was 557, albumin was 1.9. ASSESSMENT: 1. Fever without any obvious sources so far. The blood cultures and synovial fluid culture are negative. Gram-stain showed no organisms. 2. The patient has bilateral knee effusion with x-ray showing chondrocalcinosis. I did aspirate his left knee and about 40 mL of yellowish fluid drained and was sent for Gram-stain, culture and sensitivity, cell count and also to be examined under polarized lite to detect the calcium pyrophosphate crystals. 3. The patient has multiple other medical problems including: A. Pituitary adenoma, for which he is on Bromocriptine. B. Paroxysmal atrial fibrillation, rate controlled, not anticoagulated. C. History of depression. D. History of stroke. PLAN: My plan is to discontinue the IV vancomycin and if tomorrow, all the cultures are negative including synovial fluid, we will discontinue his Zosyn and transfer [facility]. Meanwhile, we will continue with physical and occupational therapy as well naproxen. CHRIS RIOS MD DR: ELIUD/rhys JOB#: [id number] / [id number]
[2020-12-17 16:43] VITALS: BP 131/73
[2020-12-17] MEDS: DONEPEZIL HCL 10 MG TABLET PO SCH (20:20)
[2020-12-17] MEDS: OLANZapine 5 MG TABLET PO SCH (20:20)
[2020-12-17] MEDS: LATANOPROST 0.005% OPHTH SOLUTION 2.5ML BOTTLE. OU SCH (20:20)
[2020-12-18] MEDS: PIPERACILLIN/TAZOBACTAM 3.375 GM in IV NORMAL SALINE 50ML 50 ML IV SCH (05:16)
[2020-12-18 06:37] VITALS: BP 102/64
[2020-12-18] MEDS: LACTOBACILLUS RHAMNOSUS GG 1 CAPSULE. PO SCH (08:43)
[2020-12-18] MEDS: FLUTICASONE 50MCG/NASAL SPRAY 16GM BOTTLE. NS SCH (08:43)
[2020-12-18] MEDS: NAPROXEN 500 MG TABLET PO SCH (08:43)
[2020-12-18] MEDS: SERTRALINE 25 MG TABLET. PO SCH (08:43)
[2020-12-18] MEDS: CHOLECALCIFEROL (VITAMIN D3) 1,000 UNIT TABLET PO SCH (08:44)
[2020-12-18] MEDS: MEMANTINE 10 MG TABLET. PO SCH (08:44)
[2020-12-18] MEDS ORDERED: NAPR500T8 PO (10:29)
[2020-12-18] MEDS ORDERED: PANT40TA3 PO (10:40)
[2020-12-18 10:51] VITALS: BP 133/73
[2020-12-18] MEDS ORDERED: LACT1CAP19 PO (13:12)
[2020-12-18] MEDS ORDERED: BROM2.5T15 PO (13:12)
--- NOTE | 2020-12-18 13:57 | DS ---
DATE OF DISCHARGE: 12/18/2020 HOSPITAL COURSE: The patient is an 80-year-old male patient who was admitted initially to [address] [place] [address] to be screened for COVID-19 and eventually to be admitted to [facility] as the patient has been extremely agitated, with aggressive behavior towards his family, progressive dementia, restless, fidgety, cannot sit still, unable to follow command, urinate in public that all this behaviors have progressed rapidly since 12/07. He was seen at [facility] and was evaluated extensively there and apparently was diagnosed with dementia with behavioral disturbance and was found to have also pituitary microadenoma and possible normal pressure hydrocephalus; however, the family was not interested in any further investigation and was deemed stable to be discharged to [facility] long-term care facility. The patient was extremely restless there, very agitated, aggressive and difficult to ____ and he does not follow commands and was urinating in public and therefore he was admitted, had stayed there only for about a day and was transferred to [facility]. When he arrived here, the patient was found unable to walk, had severe pain in both knee joints and he also spiked his temperature up to 102, so we did blood cultures, did x-ray of his both knee joints that clinically showed that he has effusion, both of them. His x-ray of both knee joints shows evidence of osteoarthritis. There is joint space narrowing medially and there is chondrocalcinosis and joint effusion. I did aspirate the left knee joint and about 40 mL of yellowish fluid was aspirated without difficulty. The patient tolerated the procedure very well. The analysis of the synovial fluid showed the fluid was turbid with about a total of nucleated cells of 9675 of which 86% polymorphs and 4% lymphocytes. There are 10% macrophages and also 1000 RBCs. The culture sent also to be examined under polarized light, look for calcium pyrophosphate crystals. The results were still pending. His blood cultures have been negative and I spoke with Dr. Biswas who did not think that this is septic arthritis. Therefore, both antibiotics were discontinued. He actually did have a dramatic response to nonsteroidal anti-inflammatory medication in the form of naproxen. He was unable to bend both knees and he was in severe pain, now the patient is able to bend his knee, sit on the edge of the bed and stand without difficulty and therefore decision was made to transfer him to [facility] for inpatient psychiatric stabilization. PHYSICAL EXAMINATION: GENERAL: When I examined him this morning, he looked pale; no jaundice, cyanosis or thyromegaly. No jugular venous distention. No limb edema. VITAL SIGNS: His heart rate was 66, blood pressure was 102/64, temperature 97.5, respiratory rate was 18 and oxygen saturation was 95% on room air. HEAD, EYES, EARS, NOSE AND THROAT: Showed normocephalic, atraumatic. NECK: Supple. HEART: Showed normal first and second heart sounds. No gallop, rub or murmur. CHEST: Clear to auscultation. No crepitation or rhonchi. ABDOMEN: Distended, soft, nontender. NEUROLOGIC: He is demented without any obvious lateralizing sign. All his cranial nerves are intact. He moves extremities without difficulty; however, he continued to be very unsteady with his gait. His intake was 3800, no output was recorded. LABORATORY DATA: Showed white cell count 4800, hemoglobin 11, hematocrit 33, MCV 99, and platelet count 211,000. His chemistry showed serum sodium 149, potassium 3.4, chloride 115, bicarbonate 27, anion gap of 7, BUN 23, creatinine 0.7, estimated GFR was 108 mL per minute. His glucose was 95, calcium was 8.2. Total bilirubin, AST, ALT, alkaline phosphatase were normal. His C-reactive protein is down from 185 down to 111. Total protein 5.7, albumin was 1.9. His D-dimer was 5.04. His Treponema pallidum antibody was negative and coronavirus by PCR was not detectable. DISCHARGE MEDICATIONS: He was discharged to [facility] to continue on naproxen 500 mg twice a day with food for 7 more days. 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 Cholecalciferol vitamin 50,000 units, he takes actually 4000 units p.o. daily. Aricept 10 mg at bedtime, fluticasone propionate for Flonase 2 sprays to each nostril once a day, latanoprost 1 drop to both eyes at bedtime, Namenda 28 mg extended release tablet once a day, olanzapine 5 mg every 4 hours, olanzapine 5 mg at bedtime, quetiapine fumarate 25 mg p.o. p.r.n. every 6 hours and sertraline 25 mg daily. FINAL DISCHARGE DIAGNOSES: 1. Severe pain in both knee joints due to chondrocalcinosis that responded to naproxen. The patient is now able to bend his knees and walk. 2. Bilateral knee effusion with x-ray showing chondrocalcinosis. The fluid analysis was inconsistent with septic arthritis. 3. The patient has multiple other medical problems including: A. Pituitary adenoma for which he is on bromocriptine. B. Paroxysmal atrial fibrillation, rate controlled, not anticoagulated. C. History of depression. D. History of stroke. E. Dementia with behavioral disturbance. CHRIS RIOS MD DR: ELIUD/rhys JOB#: [id number] / [id number]
== END 2020-12-18 11:20 | DRG 554 ==
LOC: 1 SOUTH 17:15 → OBSVTOIN 12-14 10:43
PROVIDERS: ADMIT Internal Medicine; ATTEND Internal Medicine
DX: M11.261 Other chondrocalcinosis, right knee (principal); F02.81 Dementia in other diseases classified elsewhere, unspecified severity, with behavioral disturbance; F01.51 Vascular dementia, unspecified severity, with behavioral disturbance; M11.262 Other chondrocalcinosis, left knee; R50.9 Fever, unspecified; G30.0 Alzheimer's disease with early onset; F32.9 Major depressive disorder, single episode, unspecified; F41.9 Anxiety disorder, unspecified; M17.0 Bilateral primary osteoarthritis of knee; I48.0 Paroxysmal atrial fibrillation; M25.461 Effusion, right knee; M25.462 Effusion, left knee; D35.2 Benign neoplasm of pituitary gland; F63.9 Impulse disorder, unspecified; Z20.822 Contact with and (suspected) exposure to COVID-19; M19.90 Unspecified osteoarthritis, unspecified site; Z86.73 Personal history of transient ischemic attack (TIA), and cerebral infarction without residual deficits
CPT/HCPCS: 36415; 71045; 73521; 73560; 80053; 80202; 82306; 82607; 83036; 83735; 84145; 84443; 84550; 85025; 85027; 85379; 86140; 86592; 87040; 87070; 87426; 93005; G0378; G0379; J2543; J3370; J7040; J7050; U0003; 97530; J2001; J7030

== ENCOUNTER 2020-12-18 11:15 | Inpatient (IN) | payer MEDICARE ==
[~2020-12-18] VITALS: Ht 182.9 cm; Wt 78.7 kg
[~2020-12-18 11:15] MED LIST: BROM2.5T15 PO; CHOL500021 PO; DONE10TA7 PO; FLUT50DI NS; LATA2.5D2 OU; MEMA10TA PO; NAPR500T8 PO; OLAN5TAB9 PO; PANT40TA3 PO; QUET25TA5 PO; SERT25TA PO
[2020-12-18 11:30] VITALS: BP 146/65
[2020-12-18] MEDS ORDERED: QUEtiapine 25 MG TABLET. PO PRN (13:00)
[2020-12-18] MEDS ORDERED: OLANZapine 5 MG TABLET PO PRN (13:00)
[2020-12-18] MEDS ORDERED: LACT1CAP19 PO (13:12)
[2020-12-18] MEDS ORDERED: BROM2.5T15 PO (13:12)
[2020-12-18] MEDS ORDERED: MAG HYDROX/AL HYDROX/SIMETH 30 ML ORAL.SUSP PO PRN (13:15)
[2020-12-18] MEDS ORDERED: MAGNESIUM HYDROXIDE 2,400 MG/30 ML ORAL.SUSP. PO PRN (13:15)
[2020-12-18] MEDS ORDERED: METHYL SALICYLATE/MENTHOL TOPICAL OINTMENT 57GM TUBE. TP PRN (13:15)
[2020-12-18] MEDS ORDERED: ACETAMINOPHEN 325 MG TABLET PO PRN (13:15)
[2020-12-18 16:15] VITALS: BP 130/64
[2020-12-18] MEDS: DONEPEZIL HCL 10 MG TABLET PO SCH (19:45)
[2020-12-18] MEDS: OLANZapine 5 MG TABLET PO SCH (19:45)
[2020-12-18] MEDS: NAPROXEN 500 MG TABLET PO SCH (19:49)
[2020-12-18] MEDS: LACTOBACILLUS RHAMNOSUS GG 1 CAPSULE. PO SCH (19:49)
[2020-12-18] MEDS: FLUTICASONE 50MCG/NASAL SPRAY 16GM BOTTLE. NS SCH (19:53)
[2020-12-18] MEDS: LATANOPROST 0.005% OPHTH SOLUTION 2.5ML BOTTLE. OU SCH (19:53)
[2020-12-18] MEDS ORDERED: BUDESONIDE 0.5 MG/2 ML NEBU NEB SCH (20:00)
[2020-12-18] MEDS ORDERED: NON FORMULARY ITEM (Fluticasone Propionate (Flovent 50MCG Diskus) 50 MCG) NS SCH (21:00)
[2020-12-18] MEDS ORDERED: QUEtiapine 50 MG TABLET. PO PRN (23:15)
[2020-12-18] MEDS: traZODone 50 MG TABLET. PO PRN (23:36)
[2020-12-19] MEDS: traZODone 50 MG TABLET. PO PRN ×3 (00:30→20:56)
[2020-12-19 07:15] LABS: BASO % 1 % (0-3); EOS # 0.1 x10^3/uL (0.0-0.7); EOS % 2 % (0-3); HEMATOCRIT 31.5 % (39.0-53.0); HEMOGLOBIN 10.3 g/dL (13.0-17.5); LYMPH # 1.2 x10^3/uL (1.0-4.8); LYMPH % 22 % (24-48); MEAN CORPUSCULAR HEMOGLOBIN 32 pg (25-35); MEAN CORPUSCULAR HGB CONC 33 g/dL (31-37); MEAN CORPUSCULAR VOLUME 99 fL (79-100); MONO # 0.5 x10^3/uL (0.0-1.1); MONO % 9 % (0-9); NEUT # 3.6 x10^3uL (1.8-7.7); NEUT % 66 % (31-73); PLATELET COUNT 274 x10^3/uL (140-400); RED CELL DISTRIBUTION WIDTH 13.2 % (11.5-14.5); WHITE BLOOD COUNT 5.5 x10^3/uL (4.0-11.0)
[2020-12-19 07:20] LABS: ALBUMIN 2.1 g/dL (3.4-5.0); ALBUMIN/GLOBULIN RATIO 0.6 (1.0-1.7); CALCIUM 8.3 mg/dL (8.5-10.1); CREATININE 0.7 mg/dL (0.7-1.3); GFR 108.2; POTASSIUM 3.6 mmol/L (3.5-5.1); TOTAL BILIRUBIN 0.5 mg/dL (0.2-1.0); TOTAL PROTEIN 5.9 g/dL (6.4-8.2)
[2020-12-19] MEDS: SERTRALINE 25 MG TABLET. PO SCH (08:49)
[2020-12-19] MEDS: FLUTICASONE 50MCG/NASAL SPRAY 16GM BOTTLE. NS SCH ×2 (08:49→21:00)
[2020-12-19] MEDS: BROMOCRIPTINE MESYLATE 2.5 MG PO SCH (08:49)
[2020-12-19] MEDS: LACTOBACILLUS RHAMNOSUS GG 1 CAPSULE. PO SCH ×2 (08:49→19:56)
[2020-12-19] MEDS: CHOLECALCIFEROL (VITAMIN D3) 1,000 UNIT TABLET PO SCH (08:49)
[2020-12-19] MEDS: NAPROXEN 500 MG TABLET PO SCH ×2 (08:50→19:55)
[2020-12-19] MEDS: MEMANTINE 10 MG TABLET. PO SCH ×2 (08:50→19:56)
[2020-12-19 15:29] VITALS: BP 124/65
[2020-12-19] MEDS ORDERED: BROMOCRIPTINE MESYLATE 2.5 MG PO SCH (16:00)
[2020-12-19] MEDS: OLANZapine 5 MG TABLET PO SCH (19:55)
[2020-12-19] MEDS: DONEPEZIL HCL 10 MG TABLET PO SCH (19:56)
[2020-12-19] MEDS: LATANOPROST 0.005% OPHTH SOLUTION 2.5ML BOTTLE. OU SCH (21:00)
--- NOTE | 2020-12-20 00:20 | PSYEV ---
DATE OF SERVICE: 12/19/2020 REASON FOR ADMISSION: This 80-year-old male was transferred from the medical floor where he was admitted on 12/13/2020 because of increased agitation, aggressive behaviors towards family, progressive dementia and unable to sit still, not able to follow command, also urinating in public and according to the family, gotten worse since 12/07/2020. 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 Apparently, the family decided not to send him back to the long-term care and stated they wanted to have more treatment before he can go back. CHIEF COMPLAINT: The patient mumbling, pointing at the floor, talking to himself, not able to comprehend, confused. HISTORY OF PRESENT ILLNESS: The patient apparently made some progress during his stay on the medical floor. The patient has not presented with any major behavioral problems at this time, but he is showing significant cognitive deficits, totally dependent on ADLs. The patient is not able to communicate. The patient is not able to follow directions. 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 The patient also had a CT scan showing old cerebral stroke. PAST PSYCHIATRIC HISTORY: The patient apparently had a full workup at [facility], apparently had a CT scan. He was given the diagnosis of dementia with behavior problems. PSYCHOSOCIAL HISTORY: The patient is , living with his and son is the DPOA and no history of any abuse, physical, emotional, or sexual. No history of any alcohol or substance abuse. The patient is not able to give much information. MENTAL STATUS EXAMINATION: The patient appeared to be of stated age, casually dressed. The patient also shows increased psychomotor activity and restlessness. Speech mostly monosyllabic, not able to hold any conversation. The patient mumbling most of the time. Affect and mood showed he is anxious, confused, not aware of his surroundings. The patient is talking to himself and also distracted easily. The patient is not able to follow directions. Currently, not exhibiting any overt psychotic symptoms. He is disoriented to time, place and person. Memory, the patient is not able to participate in any memory testing because of advanced dementia. The patient's judgment impaired. Insight limited. STRENGTHS: Supportive family and the patient apparently fairly in good health. WEAKNESSES: The patient has advanced dementia. He needs total care and also exhibiting behavior problems. ADMITTING DIAGNOSES: AXIS I: 1. 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 2. Generalized anxiety disorder. AXIS II: None. AXIS III: Recent diagnosis of Alzheimer's disease, pituitary macroadenoma and normal pressure hydrocephalus. INITIAL TREATMENT PLAN: The patient will be under observation. The patient will continue on his Aricept 10 mg at bedtime, Zoloft 25 mg daily, olanzapine 5 mg q.4 hours p.r.n. and also olanzapine 5 mg at bedtime. He is also on Seroquel 25 mg q.6 hours p.r.n. The patient is also on bromocriptine 2.5 mg every Thursday, Thursday and Thursday. He is also on Namenda 28 mg daily. He is also on nasal spray twice a day, Flovent. The patient also on vitamin D3. LENGTH OF STAY: 7 days. DISCHARGE CRITERIA: The patient is able to maintain improvement without any major behavior problems for 3 consecutive days. The patient will be returning to [facility] for long-term care. BOB SOLIMAN MD DR: HORTENSIA/rhys JOB#: [id number] / [id number]
[2020-12-20 06:17] VITALS: BP 148/70
[2020-12-20 07:25] LABS: ALBUMIN 2.3 g/dL (3.4-5.0); ALBUMIN/GLOBULIN RATIO 0.6 (1.0-1.7); CALCIUM 8.4 mg/dL (8.5-10.1); CREATININE 0.8 mg/dL (0.7-1.3); GFR 92.8; POTASSIUM 3.4 mmol/L (3.5-5.1); TOTAL BILIRUBIN 0.4 mg/dL (0.2-1.0); TOTAL PROTEIN 6.2 g/dL (6.4-8.2)
[2020-12-20] MEDS: MEMANTINE 10 MG TABLET. PO SCH ×2 (08:36→19:38)
[2020-12-20] MEDS: LACTOBACILLUS RHAMNOSUS GG 1 CAPSULE. PO SCH ×2 (08:36→19:38)
[2020-12-20] MEDS: SERTRALINE 25 MG TABLET. PO SCH (08:36)
[2020-12-20] MEDS: CHOLECALCIFEROL (VITAMIN D3) 1,000 UNIT TABLET PO SCH (08:36)
[2020-12-20] MEDS: NAPROXEN 500 MG TABLET PO SCH ×2 (08:36→19:38)
[2020-12-20] MEDS: FLUTICASONE 50MCG/NASAL SPRAY 16GM BOTTLE. NS SCH ×2 (08:37→19:40)
--- NOTE | 2020-12-20 15:26 | TX PLAN ---
Interdisciplinary Tx Plan Admission Information Dec 18, 2020 at 11:15 Legal Status (on Admission): Voluntary DPOA/Guardian Name: Diana Mishra- Contact Other Contact Name: KikaRN Other Contact Phone: O)[phone] (C)[phone] Verified Code Status: DNR Allergies: Coded Allergies: No Known Drug Allergies (Unverified , 12/12/20) Diagnoses Primary Diagnosis: Per H&P: ADMITTING DIAGNOSES: AXIS I: 1. 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 2. Generalized anxiety disorder. AXIS II: None. AXIS III: Recent diagnosis of Alzheimer's disease, pituitary macroadenoma and normal pressure hydrocephalus. Reasons for Admission: Aggressive, Agitated, Confusion/Disoriented Problem in Patient's Words: Pt showing confusion, just went to [facility], and all states she was told was that he was agitated and restless. Diana states that pt has lived at home and has dementia for years, but they just made a switch to pt going to facility. Additional Admission Comments: Per intake, pt exhibits agitation, agressive behavior towards family, progressive dementia, restless, fidgety, can't sit still, hyperverbal, unable to focus of follow commands, urinates in public, and talks about a dog when there is no dog. Problems Active Problems: Restless, fidgety, hyperverbal, confusion, disorientation Inactive Problems: Aggression Pt Strengths/Limitations Ability for [place]: Poor Cognitive Functioning/Ability: Poor Communication Skills/Ability: Poor Financial Resources: Good Insight/Judgement: Poor Intellectual Ability: Fair Physical Health: Poor Social Skills: Fair Stability in Family: Good Stability in School/Work: Good Verbal Skills: Poor Discharge Criteria Discharge Criteria: Able to meet health needs, Adequate arrangements @DC, Verbal commit med comply, Improved behavior Other Discharge Comments: Will consider psychiatry upon d/c. Preliminary Discharge Plan Preliminary DC Plan: Current Living Arrange. Special Precautions Special Precautions: Agitation/Assault Fall Risk: High Other Precautions (specify): Pt was walking a few weeks ago. Initial D/C Plan Pt plan is to return to [facility] once stable. Identified Discharge Needs: Pt may need psychiatry upon discharge. Currently Utilized Resources Currently Utilized Resources/P: PCP-Dr. Juarez /DPOA-Diana Stover Son-Akhil Stover Facility-[facility] Referrals Community Resources: Will consider psychiatry Identified Problems/Hx/Goals Objectives/Short-Term Goals Short Term Goals: Control abnormal behavior, Dec. Aggression, Improved Social Skills, Medication Stabilization, Monitor Med Effects, Prevent Deterioration Short Term Goals in Patient's: Decrease agitation, aggression, and restlessness so that pt can return to [facility]. Interventions/Frequency Staff Interventions/Frequency&: Psychiatry to assess pt three times per week for medication management. Nursing to assess behaivors, monitor medications, and complete 15 minute checks daily. Social work to see pt at least two times weekly to aid in return to placement. Recreational therapy to encourage pt to participate in group activities daily. 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 Education: Pt completed high school and attended one year of college. 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 Community Follow-up PCP Community Provider/Family Inpu: /DPOA, Diana and son, Akhil provide input into pt history and is available for further information as needed. Treatment Plan Explained Patient/Drug Department Worker had this treatment plan explained to him/her as indicated by the signature below and has been given the opportunity to ask questions and make suggestions: Date: Patient/Drug Department Worker Signature: YARELI FERNANDEZ Dec 20, 2020 15:26
[2020-12-20 16:22] VITALS: BP 124/66
[2020-12-20] MEDS: OLANZapine 5 MG TABLET PO SCH (19:38)
[2020-12-20] MEDS: DONEPEZIL HCL 10 MG TABLET PO SCH (19:38)
[2020-12-20] MEDS: LATANOPROST 0.005% OPHTH SOLUTION 2.5ML BOTTLE. OU SCH (19:39)
[2020-12-20] MEDS: traZODone 50 MG TABLET. PO PRN (20:01)
--- NOTE | 2020-12-20 22:52 | PN ---
DATE: 12/20/2020 SUBJECTIVE: The patient was seen today, met with the staff, chart reviewed, also covering for Dr. Horton. The patient apparently showed some improvement, much calmer, able to communicate, still disorganized thinking. The patient is also on wheelchair. OBSERVATION: VITAL SIGNS: Temperature 97.9, blood pressure 148/70, pulse 57, respirations 20, O2 sat 94%. GENERAL: Slept about 7 hours last night. LABORATORY DATA: The patient's lab reviewed. The patient's hemoglobin was 10.3. Chemistry: Sodium 149, potassium 3.4, BUN 21. MEDICATIONS: The patient's current medications include olanzapine 5 mg q.4 hours p.r.n., Zoloft 25 mg daily, Namenda 10 mg twice a day, trazodone 50 mg at night p.r.n. and olanzapine 5 mg at night and Aricept 10 mg at night. The patient is also on Seroquel 25 mg q. 6 hours p.r.n. The patient is not having any side effects. ASSESSMENT: 1. 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 2. Generalized anxiety disorder. PLAN: To continue with the current treatment. LENGTH OF STAY: 7-10 days. BOB SOLIMAN MD DR: HORTENSIA/rhys JOB#: [id number] / [id number]
[2020-12-21 06:30] VITALS: BP 162/88
[2020-12-21] MEDS: NAPROXEN 500 MG TABLET PO SCH ×2 (08:39→19:43)
[2020-12-21] MEDS: MEMANTINE 10 MG TABLET. PO SCH ×2 (08:39→19:43)
[2020-12-21] MEDS: SERTRALINE 25 MG TABLET. PO SCH (08:39)
[2020-12-21] MEDS: LACTOBACILLUS RHAMNOSUS GG 1 CAPSULE. PO SCH ×2 (08:39→19:42)
[2020-12-21] MEDS: CHOLECALCIFEROL (VITAMIN D3) 1,000 UNIT TABLET PO SCH (08:39)
[2020-12-21] MEDS: BROMOCRIPTINE MESYLATE 2.5 MG PO SCH (08:40)
[2020-12-21] MEDS: FLUTICASONE 50MCG/NASAL SPRAY 16GM BOTTLE. NS SCH ×2 (08:40→19:42)
[2020-12-21 15:49] VITALS: BP 128/73
[2020-12-21 19:13] LABS: BACTERIA,URINE 0 /HPF (0-FEW); BILIRUBIN,URINE NEG (NEG); CLARITY,URINE CLEAR; COLOR,URINE YELLOW; GLUCOSE,URINE NEG (NEG); NITRITE,URINE NEG (NEG); RBC,URINE OCC /HPF (0-2); SQUAMOUS EPITHELIAL CELL,UR FEW /LPF; UROBILINOGEN,URINE 0.2 mg/dL (0.2 mg/dL); WBC,URINE OCC /HPF (0-4)
[2020-12-21 19:14] LABS: HYALINE CASTS, URINE OCC /HPF
[2020-12-21 19:20] LABS: THYROXINE 7.3 ug/dL (4.5-12.0)
[2020-12-21] MEDS: LATANOPROST 0.005% OPHTH SOLUTION 2.5ML BOTTLE. OU SCH (19:42)
[2020-12-21] MEDS: DONEPEZIL HCL 10 MG TABLET PO SCH (19:43)
[2020-12-21] MEDS: OLANZapine 5 MG TABLET PO SCH (19:44)
[2020-12-21] MEDS: traZODone 50 MG TABLET. PO PRN (19:49)
--- NOTE | 2020-12-21 21:00 | PN ---
DATE: 12/21/2020 SUBJECTIVE: The patient was seen today, met with the staff, chart reviewed and also covering for Dr. Horton. Staff reports that he is compliant, restless at time, pleasant and also is a fall risk. OBSERVATION: VITAL SIGNS: Temperature 97.3, blood pressure 160/85, pulse 71, respiration 18, O2 sat 94%. GENERAL: Slept about 7 hours last night. The patient's appetite is fair. CURRENT MEDICATIONS: Include olanzapine 5 mg q. 4 hours p.r.n., Zoloft 25 mg daily, Namenda 10 mg twice a day, trazodone 50 mg at night p.r.n. and olanzapine 5 mg at night and Aricept 10 mg at night. The patient is also on Seroquel 25 mg q. 6 hours p.r.n. The patient is not experiencing any side effects. ASSESSMENT: 1. 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 2. Generalized anxiety disorder. PLAN: To continue with the current treatment. LENGTH OF STAY: 7-10 days. BOB SOLIMAN MD DR: HORTENSIA/rhys JOB#: [id number] / [id number]
[2020-12-22 06:20] VITALS: BP 143/85
[2020-12-22] MEDS: NAPROXEN 500 MG TABLET PO SCH ×2 (08:25→20:10)
[2020-12-22] MEDS: MEMANTINE 10 MG TABLET. PO SCH ×2 (08:26→20:11)
[2020-12-22] MEDS: CHOLECALCIFEROL (VITAMIN D3) 1,000 UNIT TABLET PO SCH (08:26)
[2020-12-22] MEDS: SERTRALINE 25 MG TABLET. PO SCH (08:26)
[2020-12-22] MEDS: LACTOBACILLUS RHAMNOSUS GG 1 CAPSULE. PO SCH ×2 (08:26→20:09)
[2020-12-22] MEDS: FLUTICASONE 50MCG/NASAL SPRAY 16GM BOTTLE. NS SCH ×2 (08:26→20:09)
[2020-12-22 16:58] VITALS: BP_SYST 137
[2020-12-22] MEDS: LATANOPROST 0.005% OPHTH SOLUTION 2.5ML BOTTLE. OU SCH (20:09)
[2020-12-22] MEDS: traZODone 50 MG TABLET. PO PRN (20:10)
[2020-12-22] MEDS: OLANZapine 5 MG TABLET PO SCH (20:10)
[2020-12-22] MEDS: DONEPEZIL HCL 10 MG TABLET PO SCH (20:11)
--- NOTE | 2020-12-22 20:20 | PN ---
DATE: 12/22/2020 SUBJECTIVE: The patient was seen today, met with the staff, chart reviewed and also covering for Dr. Horton. The patient has been compliant with the treatment, still restless at times. OBSERVATION: VITAL SIGNS: Temperature 97.7, blood pressure 143/85, pulse 64, respirations 16, O2 sat 95%. GENERAL: Slept about 7-1/2 hours last night. The patient's appetite is fair. MEDICATIONS: The patient's current medications include olanzapine 5 mg q. 4 hours p.r.n., Zoloft 25 mg daily, Namenda 10 mg twice a day, trazodone 50 mg at night p.r.n. and olanzapine 5 mg at night. He is also on Aricept 10 mg at night and Seroquel 25 mg q. 6 hours p.r.n. The patient is not experiencing any side effects. ASSESSMENT: 1. 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 2. Generalized anxiety disorder. PLAN: To continue with the treatment. LENGTH OF STAY: 7-10 days. BOB SOLIMAN MD DR: HORTENSIA/rhys JOB#: [id number] / [id number]
--- NOTE | 2020-12-23 | PN ---
DATE: 12/22/2020 SUBJECTIVE: The patient was seen today, met with the staff, chart reviewed and also covering for Dr. Horton. Staff reports no major problems, pleasant, medication compliant. Still gets agitated easily. OBSERVATION: VITAL SIGNS: Temperature 97.7, blood pressure 143/85, pulse 64, respirations 16, O2 sat 95%. GENERAL: Slept about 7 hours last night. The patient's appetite is fair. MEDICATIONS: The patient's current medications include olanzapine 5 mg q. 4 hours p.r.n., Zoloft 25 mg daily, Namenda 10 mg twice a day, trazodone 50 mg at night p.r.n., olanzapine 5 mg at night and Aricept 10 mg at night. The patient is also on Seroquel 25 mg q. 6 hours p.r.n. The patient is not having any side effects. ASSESSMENT: 1. Dementia, most likely Alzheimer and vascular with behavioral disturbances. 2. Generalized anxiety disorder. PLAN: To continue with the current treatment. LENGTH OF STAY: 7-10 days. BOB SOLIMAN MD DR: HORTENSIA/rhys JOB#: [id number] / [id number]
[2020-12-23 06:13] VITALS: BP 170/88
[2020-12-23] MEDS: FLUTICASONE 50MCG/NASAL SPRAY 16GM BOTTLE. NS SCH ×2 (08:39→20:00)
[2020-12-23] MEDS: NAPROXEN 500 MG TABLET PO SCH ×2 (08:39→20:02)
[2020-12-23] MEDS: LACTOBACILLUS RHAMNOSUS GG 1 CAPSULE. PO SCH ×2 (08:40→20:02)
[2020-12-23] MEDS: MEMANTINE 10 MG TABLET. PO SCH ×2 (08:40→20:04)
[2020-12-23] MEDS: CHOLECALCIFEROL (VITAMIN D3) 1,000 UNIT TABLET PO SCH (08:40)
[2020-12-23] MEDS: SERTRALINE 25 MG TABLET. PO SCH (08:40)
[2020-12-23 16:23] VITALS: BP 146/79
[2020-12-23] MEDS: LATANOPROST 0.005% OPHTH SOLUTION 2.5ML BOTTLE. OU SCH (20:00)
[2020-12-23] MEDS: DONEPEZIL HCL 10 MG TABLET PO SCH (20:01)
[2020-12-23] MEDS: OLANZapine 5 MG TABLET PO SCH (20:04)
--- NOTE | 2020-12-23 23:10 | PN ---
DATE: 12/23/2020 SUBJECTIVE: The patient was seen today, met with the staff, chart reviewed. Staff reports no major behavior problems, still confused and episodes of increased agitation. OBSERVATION: VITAL SIGNS: Temperature 97.7, blood pressure 170/88, pulse 70, respirations 16, O2 sat 95%. GENERAL: Slept about 8 hours last night. The patient's appetite is normal. MEDICATIONS: The patient's current medications include olanzapine 5 mg q. 4 hours p.r.n., Zoloft 25 mg daily, Namenda 10 mg b.i.d., trazodone 50 mg at night, olanzapine 5 mg at night, Aricept 10 mg at night, also Seroquel 25 mg q. 4 hours p.r.n. LABORATORY DATA: The patient's lab reviewed. ASSESSMENT: 1. 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 2. Generalized anxiety disorder. PLAN: To continue with the treatment. LENGTH OF STAY: 7-10 days. BOB SOLIMAN MD DR: HORTENSIA/rhys JOB#: [id number] / [id number]
[2020-12-24 06:20] VITALS: BP 167/74
[2020-12-24] MEDS: CHOLECALCIFEROL (VITAMIN D3) 1,000 UNIT TABLET PO SCH (07:35)
[2020-12-24] MEDS: NAPROXEN 500 MG TABLET PO SCH ×2 (07:35→20:15)
[2020-12-24] MEDS: SERTRALINE 25 MG TABLET. PO SCH (07:35)
[2020-12-24] MEDS: MEMANTINE 10 MG TABLET. PO SCH ×2 (07:36→20:15)
[2020-12-24] MEDS: BROMOCRIPTINE MESYLATE 2.5 MG PO SCH (07:36)
[2020-12-24] MEDS: LACTOBACILLUS RHAMNOSUS GG 1 CAPSULE. PO SCH ×2 (07:36→20:15)
[2020-12-24] MEDS: FLUTICASONE 50MCG/NASAL SPRAY 16GM BOTTLE. NS SCH ×2 (09:00→16:06)
[2020-12-24 15:46] VITALS: BP 115/54
[2020-12-24] MEDS: DONEPEZIL HCL 10 MG TABLET PO SCH (20:15)
[2020-12-24] MEDS: OLANZapine 5 MG TABLET PO SCH (20:15)
[2020-12-24] MEDS: LATANOPROST 0.005% OPHTH SOLUTION 2.5ML BOTTLE. OU SCH (20:15)
[2020-12-24] MEDS: traZODone 50 MG TABLET. PO PRN (20:15)
--- NOTE | 2020-12-24 20:52 | PN ---
DATE: 12/24/2020 SUBJECTIVE: The patient was seen today, met with the staff, chart reviewed and also covering for Dr. Horton. Staff reports no major behavior problems, except restless at times. He is redirectable, mostly pleasant and medication compliant. OBSERVATION: VITAL SIGNS: Temperature 97.5, blood pressure 167/74, pulse 63, respirations 20, O2 sat 95%. GENERAL: Slept about 7 hours last night. The patient's appetite is fair. MEDICATIONS: The patient's current medications include Zoloft 25 mg daily, Namenda 10 mg twice a day, trazodone 50 mg at night p.r.n. He is also on olanzapine 5 mg at night and Aricept 10 mg at night. The patient is also on Seroquel 25 mg q. 6 hours p.r.n. for severe agitation. The patient is not experiencing any side effects. ASSESSMENT: 1. 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 2. Generalized anxiety disorder. PLAN: To continue with the treatment. LENGTH OF STAY: 7 days. BOB SOLIMAN MD DR: HORTENSIA/rhys JOB#: [id number] / [id number]
[2020-12-25 06:12] VITALS: BP 165/79
[2020-12-25] MEDS: CHOLECALCIFEROL (VITAMIN D3) 1,000 UNIT TABLET PO SCH (07:57)
[2020-12-25] MEDS: MEMANTINE 10 MG TABLET. PO SCH ×2 (07:57→19:45)
[2020-12-25] MEDS: SERTRALINE 25 MG TABLET. PO SCH (07:57)
[2020-12-25] MEDS: NAPROXEN 500 MG TABLET PO SCH ×2 (07:57→19:45)
[2020-12-25] MEDS: FLUTICASONE 50MCG/NASAL SPRAY 16GM BOTTLE. NS SCH ×2 (07:57→19:44)
[2020-12-25] MEDS: LACTOBACILLUS RHAMNOSUS GG 1 CAPSULE. PO SCH ×2 (07:57→19:45)
[2020-12-25 16:06] VITALS: BP 145/87
[2020-12-25] MEDS: traZODone 50 MG TABLET. PO PRN (19:44)
[2020-12-25] MEDS: LATANOPROST 0.005% OPHTH SOLUTION 2.5ML BOTTLE. OU SCH (19:44)
[2020-12-25] MEDS: DONEPEZIL HCL 10 MG TABLET PO SCH (19:45)
[2020-12-25] MEDS: OLANZapine 5 MG TABLET PO SCH (19:45)
[2020-12-26 06:10] VITALS: BP 169/89
[2020-12-26 06:24] LABS: BASO # 0.1 x10^3/uL (0.0-0.2); BASO % 1 % (0-3); EOS % 1 % (0-3); HEMATOCRIT 35.8 % (39.0-53.0); HEMOGLOBIN 11.8 g/dL (13.0-17.5); LYMPH # 1.8 x10^3/uL (1.0-4.8); LYMPH % 31 % (24-48); MEAN CORPUSCULAR HEMOGLOBIN 32 pg (25-35); MEAN CORPUSCULAR HGB CONC 33 g/dL (31-37); MEAN CORPUSCULAR VOLUME 97 fL (79-100); MONO # 0.5 x10^3/uL (0.0-1.1); MONO % 10 % (0-9); NEUT # 3.3 x10^3uL (1.8-7.7); NEUT % 57 % (31-73); PLATELET COUNT 385 x10^3/uL (140-400); RED CELL DISTRIBUTION WIDTH 13.6 % (11.5-14.5); WHITE BLOOD COUNT 5.8 x10^3/uL (4.0-11.0)
[2020-12-26 06:42] LABS: ALBUMIN 2.8 g/dL (3.4-5.0); ALBUMIN/GLOBULIN RATIO 0.7 (1.0-1.7); CALCIUM 8.9 mg/dL (8.5-10.1); CREATININE 0.9 mg/dL (0.7-1.3); TOTAL BILIRUBIN 0.4 mg/dL (0.2-1.0); TOTAL PROTEIN 6.7 g/dL (6.4-8.2)
[2020-12-26] MEDS: CHOLECALCIFEROL (VITAMIN D3) 1,000 UNIT TABLET PO SCH (08:19)
[2020-12-26] MEDS: MEMANTINE 10 MG TABLET. PO SCH ×2 (08:20→20:27)
[2020-12-26] MEDS: NAPROXEN 500 MG TABLET PO SCH ×2 (08:20→20:27)
[2020-12-26] MEDS: LACTOBACILLUS RHAMNOSUS GG 1 CAPSULE. PO SCH ×2 (08:20→20:27)
[2020-12-26] MEDS: BROMOCRIPTINE MESYLATE 2.5 MG PO SCH (08:20)
[2020-12-26] MEDS: SERTRALINE 25 MG TABLET. PO SCH (08:21)
[2020-12-26] MEDS: FLUTICASONE 50MCG/NASAL SPRAY 16GM BOTTLE. NS SCH ×2 (08:21→20:27)
[2020-12-26 16:16] VITALS: BP 129/72
[2020-12-26] MEDS: OLANZapine 5 MG TABLET PO SCH (20:27)
[2020-12-26] MEDS: LATANOPROST 0.005% OPHTH SOLUTION 2.5ML BOTTLE. OU SCH (20:27)
[2020-12-26] MEDS: traZODone 50 MG TABLET. PO PRN (20:27)
[2020-12-26] MEDS: DONEPEZIL HCL 10 MG TABLET PO SCH (20:27)
--- NOTE | 2020-12-26 21:41 | PN ---
DATE: 12/25/2020 This is the late entry for the service date 12/25/2020. SUBJECTIVE: Staff reports no major behavior problems. He is redirectable, mostly pleasant and confused. OBSERVATION: VITAL SIGNS: Temperature 97.4, blood pressure 165/79, pulse 57, respirations 20, O2 sat 98%. GENERAL: Slept about 7 hours last night. LABORATORY DATA: The patient's lab reviewed. MEDICATIONS: The patient's current medications include Zoloft 25 mg daily, Namenda 10 mg twice a day, trazodone 50 mg at night p.r.n. The patient is also on olanzapine 5 mg at night and Aricept 10 mg at night. The patient is not experiencing any side effects. ASSESSMENT: 1. 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 2. Generalized anxiety disorder. PLAN: To continue with the treatment. LENGTH OF STAY: 7 days. BOB SOLIMAN MD DR: HORTENSIA/rhys JOB#: [id number] / [id number]
--- NOTE | 2020-12-26 22:59 | PN ---
DATE: 12/26/2020 SUBJECTIVE: The patient was seen today, met with the staff, chart reviewed. The patient has not presented with any major behavior problems. Mostly pleasant, but confused. OBSERVATION: VITAL SIGNS: Temperature 98.1, blood pressure 169/89, pulse 58, respirations 16, O2 sat 97%. GENERAL: Slept about 6 hours last night. The patient's appetite is fair. CURRENT MEDICATIONS: Include Zoloft 25 mg daily, Namenda 10 mg twice a day, trazodone 50 mg at night. The patient is also on olanzapine 5 mg at night and Aricept 10 mg at night. The patient is not having any side effects to medications. LABORATORY DATA: Reviewed. ASSESSMENT: 1. 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 2. Generalized anxiety disorder. PLAN: To continue with the treatment. LENGTH OF STAY: 7 days. BOB SOLIMAN MD DR: HORTENSIA/rhys JOB#: [id number] / [id number]
[2020-12-27 05:54] VITALS: BP 148/84
[2020-12-27] MEDS: NAPROXEN 500 MG TABLET PO SCH ×2 (08:22→20:53)
[2020-12-27] MEDS: SERTRALINE 25 MG TABLET. PO SCH (08:22)
[2020-12-27] MEDS: FLUTICASONE 50MCG/NASAL SPRAY 16GM BOTTLE. NS SCH ×2 (08:22→20:53)
[2020-12-27] MEDS: CHOLECALCIFEROL (VITAMIN D3) 1,000 UNIT TABLET PO SCH (08:22)
[2020-12-27] MEDS: MEMANTINE 10 MG TABLET. PO SCH ×2 (08:22→20:54)
[2020-12-27] MEDS: LACTOBACILLUS RHAMNOSUS GG 1 CAPSULE. PO SCH ×2 (08:22→20:54)
--- NOTE | 2020-12-27 16:09 | TX PLAN ---
Interdisciplinary Tx Plan Admission Information Dec 18, 2020 at 11:15 Legal Status (on Admission): Voluntary DPOA/Guardian Name: Diana Mishra- Contact Other Contact Name: KikaRN Other Contact Phone: [phone] Verified Code Status: DNR Allergies: Coded Allergies: No Known Drug Allergies (Unverified , 12/12/20) Diagnoses Primary Diagnosis: Per H&P: ADMITTING DIAGNOSES: AXIS I: 1. 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 2. Generalized anxiety disorder. AXIS II: None. AXIS III: Recent diagnosis of Alzheimer's disease, pituitary macroadenoma and normal pressure hydrocephalus. Reasons for Admission: Aggressive, Agitated, Confusion/Disoriented Problem in Patient's Words: Pt showing confusion, just went to [facility], and all states she was told was that he was agitated and restless. Diana states that pt has lived at home and has dementia for years, but they just made a switch to pt going to facility. Additional Admission Comments: Per intake, pt exhibits agitation, agressive behavior towards family, progressive dementia, restless, fidgety, can't sit still, hyperverbal, unable to focus of follow commands, urinates in public, and talks about a dog when there is no dog. Problems Active Problems: Restless, fidgety, hyperverbal, confusion, disorientation Inactive Problems: Aggression Pt Strengths/Limitations Ability for [place]: Poor Cognitive Functioning/Ability: Poor Communication Skills/Ability: Poor Financial Resources: Good Insight/Judgement: Poor Intellectual Ability: Fair Physical Health: Poor Social Skills: Fair Stability in Family: Good Stability in School/Work: Good Verbal Skills: Poor Discharge Criteria Discharge Criteria: Able to meet health needs, Adequate arrangements @DC, Verbal commit med comply, Improved behavior Other Discharge Comments: Will consider psychiatry upon d/c. Preliminary Discharge Plan Preliminary DC Plan: Current Living Arrange. Special Precautions Special Precautions: Agitation/Assault Fall Risk: High Other Precautions (specify): Pt was walking a few weeks ago. Initial D/C Plan Pt plan is to return to [facility] once stable. Identified Discharge Needs: Pt may need psychiatry upon discharge. Currently Utilized Resources Currently Utilized Resources/P: PCP-Dr. Juarez /DPOA-Diana Stover Son-Akhil Stover Facility-[facility] Referrals Community Resources: Will consider psychiatry Identified Problems/Hx/Goals Objectives/Short-Term Goals Short Term Goals: Control abnormal behavior, Dec. Aggression, Improved Social Skills, Medication Stabilization, Monitor Med Effects, Prevent Deterioration Short Term Goals in Patient's: Decrease agitation, aggression, and restlessness so that pt can return to [facility]. Interventions/Frequency Staff Interventions/Frequency&: Psychiatry to assess pt three times per week for medication management. Nursing to assess behaivors, monitor medications, and complete 15 minute checks daily. Social work to see pt at least two times weekly to aid in return to placement. Recreational therapy to encourage pt to participate in group activities daily. 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 Education: Pt completed high school and attended one year of college. 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 Community Follow-up PCP Community Provider/Family Inpu: /DPOA, Diana and son, Akhil provide input into pt history and is available for further information as needed. Treatment Plan Explained Patient/Loading Inspector had this treatment plan explained to him/her as indicated by the signature below and has been given the opportunity to ask questions and make suggestions: Date: Patient/Loading Inspector Signature: Status Update Update Pt eating about 97% of his meals and averaging 6.5 hours of sleep per night. Pt is busy around the unit tinkering with things as his past has always been to have something to do. He wanders the unit and is up ad gold. Pt demonstrates that he is pleasantly confused. Pt is medication compliant. He attends groups on the unit and really enjoys music. Pt will discharge to [facility] once stable. YARELI FERNANDEZ Dec 27, 2020 16:09
[2020-12-27 16:36] VITALS: BP 133/61
[2020-12-27] MEDS: LATANOPROST 0.005% OPHTH SOLUTION 2.5ML BOTTLE. OU SCH (20:53)
[2020-12-27] MEDS: DONEPEZIL HCL 10 MG TABLET PO SCH (20:54)
[2020-12-27] MEDS: OLANZapine 5 MG TABLET PO SCH (20:56)
[2020-12-28 06:30] VITALS: BP 132/77
[2020-12-28] MEDS: NAPROXEN 500 MG TABLET PO SCH ×2 (07:53→20:17)
[2020-12-28] MEDS: CHOLECALCIFEROL (VITAMIN D3) 1,000 UNIT TABLET PO SCH (07:53)
[2020-12-28] MEDS: LACTOBACILLUS RHAMNOSUS GG 1 CAPSULE. PO SCH ×2 (07:53→20:18)
[2020-12-28] MEDS: MEMANTINE 10 MG TABLET. PO SCH ×2 (07:53→20:18)
[2020-12-28] MEDS: SERTRALINE 25 MG TABLET. PO SCH (07:53)
[2020-12-28] MEDS: BROMOCRIPTINE MESYLATE 2.5 MG PO SCH (07:53)
[2020-12-28] MEDS: FLUTICASONE 50MCG/NASAL SPRAY 16GM BOTTLE. NS SCH ×2 (07:54→20:19)
[2020-12-28 16:24] VITALS: BP 115/72
[2020-12-28] MEDS: DONEPEZIL HCL 10 MG TABLET PO SCH (20:17)
[2020-12-28] MEDS: OLANZapine 5 MG TABLET PO SCH (20:18)
[2020-12-28] MEDS: LATANOPROST 0.005% OPHTH SOLUTION 2.5ML BOTTLE. OU SCH (20:18)
--- NOTE | 2020-12-28 22:36 | PN ---
DATE: 12/28/2020 SUBJECTIVE: The patient was seen today, met with the staff, chart reviewed. Staff reports he has been pleasant, but confused. Medication compliant. OBSERVATION: VITAL SIGNS: Temperature 98.2, blood pressure 132/77, pulse 68, respiration 18, O2 sat 96%. GENERAL: Slept about 7 hours last night. The patient's appetite is fair. MEDICATIONS: The patient's current medications include olanzapine 10 mg at night and 2.5 mg q. 2 hours p.r.n., Zoloft 25 mg daily, Namenda 10 mg b.i.d., trazodone 50 mg at night p.r.n., Aricept 10 mg at night, and Seroquel 25 mg q. 6 hours p.r.n. LABORATORY DATA: The patient's labs reviewed. ASSESSMENT: 1. Dementia, most likely Alzheimer's and vascular with behavior problems. 2. Generalized anxiety disorder. PLAN: To continue with treatment. LENGTH OF STAY: 7 days. BOB SOLIMAN MD DR: HORTENSIA/rhys JOB#: [id number] / [id number]
--- NOTE | 2020-12-28 22:43 | PN ---
DATE: 12/27/2020 This is the late entry. SUBJECTIVE: The patient was seen today, met with the staff, chart reviewed. Staff reports increased confusion, tend to wander, difficult to redirect at times. OBSERVATION: VITAL SIGNS: Temperature 97.2, blood pressure 148/84, pulse 55, respirations 16, O2 sat 93%. Slept about 7 hours last night. The patient's appetite is fair. The patient needs assistance with ADLs. MEDICATIONS: The patient's current medications include Zoloft 25 mg daily, Namenda 10 mg twice a day, trazodone 50 mg at night. The patient is also on olanzapine 5 mg at night and Aricept 10 mg at night. The patient is not showing any major side effects. ASSESSMENT: 1. Dementia, most likely Alzheimer and vascular with behavioral disturbances. 2. Generalized anxiety disorder. PLAN: To continue with the treatment. LENGTH OF STAY: 7 days. BOB SOLIMAN MD DR: HORTENSIA/rhys JOB#: [id number] / [id number]
[2020-12-29 06:46] VITALS: BP 158/81
[2020-12-29] MEDS: MEMANTINE 10 MG TABLET. PO SCH ×2 (08:28→20:20)
[2020-12-29] MEDS: SERTRALINE 25 MG TABLET. PO SCH (08:28)
[2020-12-29] MEDS: FLUTICASONE 50MCG/NASAL SPRAY 16GM BOTTLE. NS SCH ×2 (08:28→20:20)
[2020-12-29] MEDS: NAPROXEN 500 MG TABLET PO SCH ×2 (08:28→20:20)
[2020-12-29] MEDS: CHOLECALCIFEROL (VITAMIN D3) 1,000 UNIT TABLET PO SCH (08:28)
[2020-12-29] MEDS: LACTOBACILLUS RHAMNOSUS GG 1 CAPSULE. PO SCH ×2 (08:28→20:20)
[2020-12-29 15:42] VITALS: BP 131/70
[2020-12-29] MEDS: LATANOPROST 0.005% OPHTH SOLUTION 2.5ML BOTTLE. OU SCH (20:19)
[2020-12-29] MEDS: DONEPEZIL HCL 10 MG TABLET PO SCH (20:20)
[2020-12-29] MEDS: OLANZapine 5 MG TABLET PO SCH (20:20)
[2020-12-30 06:36] VITALS: BP 175/55
[2020-12-30] MEDS: FLUTICASONE 50MCG/NASAL SPRAY 16GM BOTTLE. NS SCH ×2 (07:54→20:12)
[2020-12-30] MEDS: MEMANTINE 10 MG TABLET. PO SCH ×2 (07:54→20:11)
[2020-12-30] MEDS: LACTOBACILLUS RHAMNOSUS GG 1 CAPSULE. PO SCH ×2 (07:54→20:11)
[2020-12-30] MEDS: NAPROXEN 500 MG TABLET PO SCH ×2 (07:54→20:11)
[2020-12-30] MEDS: CHOLECALCIFEROL (VITAMIN D3) 1,000 UNIT TABLET PO SCH (07:56)
[2020-12-30] MEDS: SERTRALINE 50 MG TABLET. PO SCH (10:07)
[2020-12-30 15:53] VITALS: BP 116/66
[2020-12-30] MEDS: DIVALPROEX 125 MG CAP.SPRINK PO SCH (18:02)
[2020-12-30] MEDS: OLANZapine 5 MG TABLET PO SCH (20:11)
[2020-12-30] MEDS: DONEPEZIL HCL 10 MG TABLET PO SCH (20:11)
[2020-12-30] MEDS: LATANOPROST 0.005% OPHTH SOLUTION 2.5ML BOTTLE. OU SCH (20:13)
--- NOTE | 2020-12-30 22:31 | PDOC ---
Exam Note: Valente Note: Late entr for 12/29/20.Please also refer to the separate dictated note~for this date of service dictated separately.~Patient seen individually. Discussed the patient with Nursing staff reviewed the chart.~Reviewed interim history and current functioning. Reviewed vital signs,~Labs/ Radiology~and current medicatio ns noted below. Continue current treatment with the changes noted in the dictated addendum note Assessment: Vital Signs/I&O: Vital Signs Date Time Temp Pulse Resp B/P (MAP) Pulse Ox O2 Delivery O2 Flow Rate FiO2 12/30/20 15:53 97.2 97 20 116/66 (83) 97 12/30/20 06:36 Room Air 12/24/20 15:46 0.0 I & O 12/29/20 12/29/20 12/30/20 15:00 23:00 07:00 Intake Total 720 ml 360 ml Balance 720 ml 360 ml Current Medications: Meds: Current Medications Medications (Trade) Dose Ordered Sig/Farideh Route PRN Reason Start Time Stop Time Status Last Admin Dose Admin Acetaminophen (Tylenol) 650 mg PRN Q6HRS PRN PO MILD PAIN / TEMP > 100.3'F 12/18/20 13:15 Multi-Ingredient Ointment (Analgesic [place]) 1 herminio PRN QID PRN TP MUSCLE PAIN 12/18/20 13:15 Al Hydroxide/Mg Hydroxide (Mylanta Plus Xs) 15 ml PRN AFTMEALHC PRN PO DYSPEPSIA 12/18/20 13:15 Magnesium Hydroxide (Milk Of Magnesia) 2,400 mg PRN QHS PRN PO CONSTIPATION 12/18/20 13:15 Bromocriptine Mesylate (Parlodel) 2.5 mg QMWF@0900 PO 12/19/20 09:00 12/28/20 07:53 Bromocriptine Mesylate (Parlodel) 2.5 mg QMWF PO 12/19/20 16:00 12/18/20 13:25 DC Vitamin D (Vitamin D3) 4,000 unit DAILY PO 12/19/20 09:00 12/30/20 07:56 Donepezil HCl (Aricept) 10 mg QHS PO 12/18/20 21:00 12/30/20 20:11 Lactobacillus Rhamnosus (Culturelle) 1 cap BID PO 12/18/20 21:00 12/30/20 20:11 Latanoprost (Xalatan) 1 drop QHS OU 12/18/20 21:00 12/30/20 20:13 Memantine (Namenda) 10 mg BID PO 12/19/20 09:00 12/30/20 20:11 Olanzapine (ZyPREXA) 5 mg PRN Q4HRS PRN PO ANXIETY / AGITATION 12/18/20 13:00 12/19/20 20:59 DC 12/18/20 21:48 Olanzapine (ZyPREXA) 5 mg QHS PO 12/18/20 21:00 12/28/20 07:25 DC 12/27/20 20:56 Quetiapine Fumarate (SEROquel) 25 mg PRN Q6HRS PRN PO ANXIETY / AGITATION 12/18/20 13:00 12/18/20 21:48 Sertraline HCl (Zoloft) 25 mg DAILY PO 12/19/20 09:00 12/29/20 18:17 DC 12/29/20 08:28 Non-Formulary Medication (Fluticasone Propionate (Flovent 50MCG Diskus)) 50 mcg BID NS 12/18/20 21:00 UNV Naproxen (Naprosyn) 500 mg BID PO 12/18/20 21:00 12/30/20 20:11 Budesonide (Pulmicort) 0.5 mg RTBID NEB 12/18/20 20:00 UNV Fluticasone Propionate (Flonase) 2 spray BID NS 12/18/20 21:00 12/30/20 20:12 Trazodone HCl (Desyrel) 50 mg PRN QHS PRN PO INSOMNIA, MAY REPEAT X1 12/18/20 23:15 12/26/20 20:27 Quetiapine Fumarate (SEROquel) 50 mg 1X PRN PRN PO ANXIETY / AGITATION 12/18/20 23:15 Cancel Olanzapine (ZyPREXA ZYDIS) 5 mg PRN Q4HRS PRN PO PSYCHOSIS 12/19/20 21:00 12/28/20 16:17 DC 12/28/20 10:13 Olanzapine (ZyPREXA) 10 mg QHS PO 12/28/20 21:00 12/30/20 20:11 Olanzapine (ZyPREXA ZYDIS) 2.5 mg PRN Q2HR PRN PO PSYCHOSIS 12/28/20 16:15 12/30/20 13:05 Sertraline HCl (Zoloft) 50 mg DAILY PO 12/30/20 09:00 12/30/20 10:07 Divalproex Sodium (Depakote Sprinkles) 125 mg BID@0900,1700 PO 12/30/20 17:00 12/30/20 18:02 Current Medications Medications (Trade) Dose Ordered Sig/Farideh Route PRN Reason Start Time Stop Time Status Last Admin Dose Admin Sertraline HCl (Zoloft) 50 mg DAILY PO 12/30/20 09:00 12/30/20 10:07 Divalproex Sodium (Depakote Sprinkles) 125 mg BID@0900,1700 PO 12/30/20 17:00 12/30/20 18:02 I have reviewed the current psychotropics carefully including drug interactions. Risk benefit ratio favors no change other than as noted in my dictated progress note. Diagnosis: Problems: (1) Impulse control disorder, unspecified (2) Anxiety disorder, unspecified (3) Dementia, vascular, with depression (4) Dementia, vascular, with delusions (5) Dementia in Alzheimer's disease with depression (6) Dementia in Alzheimer's disease with delusions (7) Dementia of the Alzheimer's type with early onset with behavioral disturbance (8) Major neurocognitive disorder HELIO RÍOS MD Dec 30, 2020 22:31
[2020-12-31 06:25] VITALS: BP 149/83
--- NOTE | 2020-12-31 07:44 | PDOC ---
Exam Note: Valente Note: This note is a late entry for 12/29/2020 covers elements not covered in my initial note. Subjective: Dr. Monroe had covered for me from 15 December till December, and I assumed care of the patients from 29 December. I have reviewed information and interim progress notes at some length with Dr. Monroe. The patient was seen individually in the evening of 12/29/2020 with Shelbi TORRES, discussed and reviewed the chart. The patient slept 7-1/2 hours previous night. No agitation noted. Review of Systems: No CV, , pulmonary, eye system symptoms on review. Mental Status Exam: The patient is oriented just to himself. Insight and judgment, recent and remote memory, attention and concentration, fund of knowledge is poor consistent with his diagnoses. Laboratory Data: Reviewed. Impression: Major neurocognitive disorder Alzheimer vascular with delusion, depression, behavioral disturbance. Anxiety disorder unspecified. Impulse control disorder unspecified. Plan: I have carefully reviewed the current psychotropics and drug interactions. Continue current psychotropics. Increase Zoloft to 50 mg a day. Maintain Namenda, Aricept, Zyprexa 10 mg h.s., Seroquel p.r.n. Adjust further as clinically indicated. Assessment: Vital Signs/I&O: Vital Signs Date Time Temp Pulse Resp B/P (MAP) Pulse Ox O2 Delivery O2 Flow Rate FiO2 12/31/20 06:25 98.7 57 18 149/83 (105) 97 12/30/20 06:36 Room Air I & O 12/30/20 12/30/20 12/31/20 15:00 23:00 07:00 Intake Total 725 ml 445 ml Balance 725 ml 445 ml Current Medications: Meds: Current Medications Medications (Trade) Dose Ordered Sig/Farideh Route PRN Reason Start Time Stop Time Status Last Admin Dose Admin Acetaminophen (Tylenol) 650 mg PRN Q6HRS PRN PO MILD PAIN / TEMP > 100.3'F 12/18/20 13:15 Multi-Ingredient Ointment (Analgesic [place]) 1 herminio PRN QID PRN TP MUSCLE PAIN 12/18/20 13:15 Al Hydroxide/Mg Hydroxide (Mylanta Plus Xs) 15 ml PRN AFTMEALHC PRN PO DYSPEPSIA 12/18/20 13:15 Magnesium Hydroxide (Milk Of Magnesia) 2,400 mg PRN QHS PRN PO CONSTIPATION 12/18/20 13:15 Bromocriptine Mesylate (Parlodel) 2.5 mg QMWF@0900 PO 12/19/20 09:00 12/28/20 07:53 Bromocriptine Mesylate (Parlodel) 2.5 mg QMWF PO 12/19/20 16:00 12/18/20 13:25 DC Vitamin D (Vitamin D3) 4,000 unit DAILY PO 12/19/20 09:00 12/30/20 07:56 Donepezil HCl (Aricept) 10 mg QHS PO 12/18/20 21:00 12/30/20 20:11 Lactobacillus Rhamnosus (Culturelle) 1 cap BID PO 12/18/20 21:00 12/30/20 20:11 Latanoprost (Xalatan) 1 drop QHS OU 12/18/20 21:00 12/30/20 20:13 Memantine (Namenda) 10 mg BID PO 12/19/20 09:00 12/30/20 20:11 Olanzapine (ZyPREXA) 5 mg PRN Q4HRS PRN PO ANXIETY / AGITATION 12/18/20 13:00 12/19/20 20:59 DC 12/18/20 21:48 Olanzapine (ZyPREXA) 5 mg QHS PO 12/18/20 21:00 12/28/20 07:25 DC 12/27/20 20:56 Quetiapine Fumarate (SEROquel) 25 mg PRN Q6HRS PRN PO ANXIETY / AGITATION 12/18/20 13:00 12/18/20 21:48 Sertraline HCl (Zoloft) 25 mg DAILY PO 12/19/20 09:00 12/29/20 18:17 DC 12/29/20 08:28 Non-Formulary Medication (Fluticasone Propionate (Flovent 50MCG Diskus)) 50 mcg BID NS 12/18/20 21:00 UNV Naproxen (Naprosyn) 500 mg BID PO 12/18/20 21:00 12/30/20 20:11 Budesonide (Pulmicort) 0.5 mg RTBID NEB 12/18/20 20:00 UNV Fluticasone Propionate (Flonase) 2 spray BID NS 12/18/20 21:00 12/30/20 20:12 Trazodone HCl (Desyrel) 50 mg PRN QHS PRN PO INSOMNIA, MAY REPEAT X1 12/18/20 23:15 12/26/20 20:27 Quetiapine Fumarate (SEROquel) 50 mg 1X PRN PRN PO ANXIETY / AGITATION 12/18/20 23:15 Cancel Olanzapine (ZyPREXA ZYDIS) 5 mg PRN Q4HRS PRN PO PSYCHOSIS 12/19/20 21:00 12/28/20 16:17 DC 12/28/20 10:13 Olanzapine (ZyPREXA) 10 mg QHS PO 12/28/20 21:00 12/30/20 20:11 Olanzapine (ZyPREXA ZYDIS) 2.5 mg PRN Q2HR PRN PO PSYCHOSIS 12/28/20 16:15 12/30/20 13:05 Sertraline HCl (Zoloft) 50 mg DAILY PO 12/30/20 09:00 12/30/20 10:07 Divalproex Sodium (Depakote Sprinkles) 125 mg BID@0900,1700 PO 12/30/20 17:00 12/30/20 18:02 Current Medications Medications (Trade) Dose Ordered Sig/Farideh Route PRN Reason Start Time Stop Time Status Last Admin Dose Admin Sertraline HCl (Zoloft) 50 mg DAILY PO 12/30/20 09:00 12/30/20 10:07 Divalproex Sodium (Depakote Sprinkles) 125 mg BID@0900,1700 PO 12/30/20 17:00 12/30/20 18:02 I have reviewed the current psychotropics carefully including drug interactions. Risk benefit ratio favors no change other than as noted in my dictated progress note. 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
--- NOTE | 2020-12-31 08:14 | PDOC ---
Exam Note: Valente Note: This note is a late entry for 12/30/2020 covers elements not covered in my initial note. Subjective: Dr. Monroe had covered for me from 15 December till December, and I assumed care of the patients from 29 December. I have reviewed information and interim progress notes at some length with Dr. Monroe. The patient was seen individually in the evening of 12/30/2020 with Shelbi TORRES, discussed and reviewed the chart. The patient slept 5-1/4 hours previous night. He has been confused but busy. Received Zyprexa. He is restless, anxious. Review of Systems: No CV, , pulmonary, eye system symptoms on review. Reliability poor. Mental Status Exam: The patient is oriented to himself. Insight and judgment, recent and remote memory, attention and concentration, fund of knowledge is poor consistent with his diagnoses. Laboratory Data: Reviewed. Impression: Major neurocognitive disorder Alzheimer vascular with delusion, depression, behavioral disturbance. Anxiety disorder unspecified. Impulse control disorder unspecified. Plan: Start Depakote Sprinkle 125 mg 9 a.m., 5 p.m. Check CBC, CMP, valproic acid level in 3 days. Continue rest of the psychotropics unchanged. Assessment: Vital Signs/I&O: Vital Signs Date Time Temp Pulse Resp B/P (MAP) Pulse Ox O2 Delivery O2 Flow Rate FiO2 12/31/20 06:25 98.7 57 18 149/83 (105) 97 12/30/20 06:36 Room Air I & O 12/30/20 12/30/20 12/31/20 15:00 23:00 07:00 Intake Total 725 ml 445 ml Balance 725 ml 445 ml Current Medications: Meds: Current Medications Medications (Trade) Dose Ordered Sig/Farideh Route PRN Reason Start Time Stop Time Status Last Admin Dose Admin Acetaminophen (Tylenol) 650 mg PRN Q6HRS PRN PO MILD PAIN / TEMP > 100.3'F 12/18/20 13:15 Multi-Ingredient Ointment (Analgesic [place]) 1 herminio PRN QID PRN TP MUSCLE PAIN 12/18/20 13:15 Al Hydroxide/Mg Hydroxide (Mylanta Plus Xs) 15 ml PRN AFTMEALHC PRN PO DYSPEPSIA 12/18/20 13:15 Magnesium Hydroxide (Milk Of Magnesia) 2,400 mg PRN QHS PRN PO CONSTIPATION 12/18/20 13:15 Bromocriptine Mesylate (Parlodel) 2.5 mg QMWF@0900 PO 12/19/20 09:00 12/28/20 07:53 Bromocriptine Mesylate (Parlodel) 2.5 mg QMWF PO 12/19/20 16:00 12/18/20 13:25 DC Vitamin D (Vitamin D3) 4,000 unit DAILY PO 12/19/20 09:00 12/30/20 07:56 Donepezil HCl (Aricept) 10 mg QHS PO 12/18/20 21:00 12/30/20 20:11 Lactobacillus Rhamnosus (Culturelle) 1 cap BID PO 12/18/20 21:00 12/30/20 20:11 Latanoprost (Xalatan) 1 drop QHS OU 12/18/20 21:00 12/30/20 20:13 Memantine (Namenda) 10 mg BID PO 12/19/20 09:00 12/30/20 20:11 Olanzapine (ZyPREXA) 5 mg PRN Q4HRS PRN PO ANXIETY / AGITATION 12/18/20 13:00 12/19/20 20:59 DC 12/18/20 21:48 Olanzapine (ZyPREXA) 5 mg QHS PO 12/18/20 21:00 12/28/20 07:25 DC 12/27/20 20:56 Quetiapine Fumarate (SEROquel) 25 mg PRN Q6HRS PRN PO ANXIETY / AGITATION 12/18/20 13:00 12/18/20 21:48 Sertraline HCl (Zoloft) 25 mg DAILY PO 12/19/20 09:00 12/29/20 18:17 DC 12/29/20 08:28 Non-Formulary Medication (Fluticasone Propionate (Flovent 50MCG Diskus)) 50 mcg BID NS 12/18/20 21:00 UNV Naproxen (Naprosyn) 500 mg BID PO 12/18/20 21:00 12/30/20 20:11 Budesonide (Pulmicort) 0.5 mg RTBID NEB 12/18/20 20:00 UNV Fluticasone Propionate (Flonase) 2 spray BID NS 12/18/20 21:00 12/30/20 20:12 Trazodone HCl (Desyrel) 50 mg PRN QHS PRN PO INSOMNIA, MAY REPEAT X1 12/18/20 23:15 12/26/20 20:27 Quetiapine Fumarate (SEROquel) 50 mg 1X PRN PRN PO ANXIETY / AGITATION 12/18/20 23:15 Cancel Olanzapine (ZyPREXA ZYDIS) 5 mg PRN Q4HRS PRN PO PSYCHOSIS 12/19/20 21:00 12/28/20 16:17 DC 12/28/20 10:13 Olanzapine (ZyPREXA) 10 mg QHS PO 12/28/20 21:00 12/30/20 20:11 Olanzapine (ZyPREXA ZYDIS) 2.5 mg PRN Q2HR PRN PO PSYCHOSIS 12/28/20 16:15 12/30/20 13:05 Sertraline HCl (Zoloft) 50 mg DAILY PO 12/30/20 09:00 12/30/20 10:07 Divalproex Sodium (Depakote Sprinkles) 125 mg BID@0900,1700 PO 12/30/20 17:00 12/30/20 18:02 Current Medications Medications (Trade) Dose Ordered Sig/Farideh Route PRN Reason Start Time Stop Time Status Last Admin Dose Admin Sertraline HCl (Zoloft) 50 mg DAILY PO 12/30/20 09:00 12/30/20 10:07 Divalproex Sodium (Depakote Sprinkles) 125 mg BID@0900,1700 PO 12/30/20 17:00 12/30/20 18:02 I have reviewed the current psychotropics carefully including drug interactions. Risk benefit ratio favors no change other than as noted in my dictated progress note. Diagnosis: Problems: (1) Impulse control disorder, unspecified (2) Anxiety disorder, unspecified (3) Dementia, vascular, with depression (4) Dementia, vascular, with delusions (5) Dementia in Alzheimer's disease with depression (6) Dementia in Alzheimer's disease with delusions (7) Dementia of the Alzheimer's type with early onset with behavioral disturbance (8) Major neurocognitive disorder HELIO RÍOS MD Dec 31, 2020 08:14
[2020-12-31] MEDS: MEMANTINE 10 MG TABLET. PO SCH ×2 (08:47→19:51)
[2020-12-31] MEDS: BROMOCRIPTINE MESYLATE 2.5 MG PO SCH (08:47)
[2020-12-31] MEDS: DIVALPROEX 125 MG CAP.SPRINK PO SCH ×2 (08:47→17:11)
[2020-12-31] MEDS: LACTOBACILLUS RHAMNOSUS GG 1 CAPSULE. PO SCH ×2 (08:47→19:51)
[2020-12-31] MEDS: CHOLECALCIFEROL (VITAMIN D3) 1,000 UNIT TABLET PO SCH (08:47)
[2020-12-31] MEDS: SERTRALINE 50 MG TABLET. PO SCH (08:47)
[2020-12-31] MEDS: NAPROXEN 500 MG TABLET PO SCH ×2 (08:48→19:52)
[2020-12-31] MEDS: FLUTICASONE 50MCG/NASAL SPRAY 16GM BOTTLE. NS SCH ×2 (08:48→19:52)
[2020-12-31 16:10] VITALS: BP 109/66
[2020-12-31] MEDS: DONEPEZIL HCL 10 MG TABLET PO SCH (19:51)
[2020-12-31] MEDS: OLANZapine 5 MG TABLET PO SCH (19:52)
[2020-12-31] MEDS: LATANOPROST 0.005% OPHTH SOLUTION 2.5ML BOTTLE. OU SCH (19:52)
[2020-12-31] MEDS: traZODone 50 MG TABLET. PO PRN ×2 (19:52→22:45)
--- NOTE | 2020-12-31 22:21 | PDOC ---
Exam Note: Valente Note: Please also refer to the separate dictated note~for this date of service dictated separately.~Patient seen individually. Discussed the patient with Nursing staff reviewed the chart.~Reviewed interim history and current functioning. Reviewed vital signs,~Labs/ Radiology~and current medications noted below. Continue current treatment with the changes noted in the dictated addendum note Assessment: Vital Signs/I&O: Vital Signs Date Time Temp Pulse Resp B/P (MAP) Pulse Ox O2 Delivery O2 Flow Rate FiO2 12/31/20 16:10 97.4 71 16 109/66 (80) 92 12/30/20 06:36 Room Air I & O 12/30/20 12/30/20 12/31/20 15:00 23:00 07:00 Intake Total 725 ml 445 ml Balance 725 ml 445 ml Current Medications: Meds: Current Medications Medications (Trade) Dose Ordered Sig/Farideh Route PRN Reason Start Time Stop Time Status Last Admin Dose Admin Acetaminophen (Tylenol) 650 mg PRN Q6HRS PRN PO MILD PAIN / TEMP > 100.3'F 12/18/20 13:15 Multi-Ingredient Ointment (Analgesic [place]) 1 herminio PRN QID PRN TP MUSCLE PAIN 12/18/20 13:15 Al Hydroxide/Mg Hydroxide (Mylanta Plus Xs) 15 ml PRN AFTMEALHC PRN PO DYSPEPSIA 12/18/20 13:15 Magnesium Hydroxide (Milk Of Magnesia) 2,400 mg PRN QHS PRN PO CONSTIPATION 12/18/20 13:15 Bromocriptine Mesylate (Parlodel) 2.5 mg QMWF@0900 PO 12/19/20 09:00 12/31/20 08:47 Bromocriptine Mesylate (Parlodel) 2.5 mg QMWF PO 12/19/20 16:00 12/18/20 13:25 DC Vitamin D (Vitamin D3) 4,000 unit DAILY PO 12/19/20 09:00 12/31/20 08:47 Donepezil HCl (Aricept) 10 mg QHS PO 12/18/20 21:00 12/31/20 19:51 Lactobacillus Rhamnosus (Culturelle) 1 cap BID PO 12/18/20 21:00 12/31/20 19:51 Latanoprost (Xalatan) 1 drop QHS OU 12/18/20 21:00 12/31/20 19:52 Memantine (Namenda) 10 mg BID PO 12/19/20 09:00 12/31/20 19:51 Olanzapine (ZyPREXA) 5 mg PRN Q4HRS PRN PO ANXIETY / AGITATION 12/18/20 13:00 12/19/20 20:59 DC 12/18/20 21:48 Olanzapine (ZyPREXA) 5 mg QHS PO 12/18/20 21:00 12/28/20 07:25 DC 12/27/20 20:56 Quetiapine Fumarate (SEROquel) 25 mg PRN Q6HRS PRN PO ANXIETY / AGITATION 12/18/20 13:00 12/18/20 21:48 Sertraline HCl (Zoloft) 25 mg DAILY PO 12/19/20 09:00 12/29/20 18:17 DC 12/29/20 08:28 Non-Formulary Medication (Fluticasone Propionate (Flovent 50MCG Diskus)) 50 mcg BID NS 12/18/20 21:00 UNV Naproxen (Naprosyn) 500 mg BID PO 12/18/20 21:00 12/31/20 19:52 Budesonide (Pulmicort) 0.5 mg RTBID NEB 12/18/20 20:00 UNV Fluticasone Propionate (Flonase) 2 spray BID NS 12/18/20 21:00 12/31/20 19:52 Trazodone HCl (Desyrel) 50 mg PRN QHS PRN PO INSOMNIA, MAY REPEAT X1 12/18/20 23:15 12/31/20 19:52 Quetiapine Fumarate (SEROquel) 50 mg 1X PRN PRN PO ANXIETY / AGITATION 12/18/20 23:15 Cancel Olanzapine (ZyPREXA ZYDIS) 5 mg PRN Q4HRS PRN PO PSYCHOSIS 12/19/20 21:00 12/28/20 16:17 DC 12/28/20 10:13 Olanzapine (ZyPREXA) 10 mg QHS PO 12/28/20 21:00 12/31/20 19:52 Olanzapine (ZyPREXA ZYDIS) 2.5 mg PRN Q2HR PRN PO PSYCHOSIS 12/28/20 16:15 12/30/20 13:05 Sertraline HCl (Zoloft) 50 mg DAILY PO 12/30/20 09:00 12/31/20 08:47 Divalproex Sodium (Depakote Sprinkles) 125 mg BID@0900,1700 PO 12/30/20 17:00 12/31/20 17:11 I have reviewed the current psychotropics carefully including drug interactions. Risk benefit ratio favors no change other than as noted in my dictated progress note. Diagnosis: Problems: (1) Impulse control disorder, unspecified (2) Anxiety disorder, unspecified (3) Dementia, vascular, with depression (4) Dementia, vascular, with delusions (5) Dementia in Alzheimer's disease with depression (6) Dementia in Alzheimer's disease with delusions (7) Dementia of the Alzheimer's type with early onset with behavioral disturbance (8) Major neurocognitive disorder HELIO RÍOS MD Dec 31, 2020 22:21
[2021-01-01 06:25] VITALS: BP 124/70
[2021-01-01] MEDS: DIVALPROEX 125 MG CAP.SPRINK PO SCH ×2 (08:17→17:17)
[2021-01-01] MEDS: NAPROXEN 500 MG TABLET PO SCH ×2 (08:17→20:03)
[2021-01-01] MEDS: MEMANTINE 10 MG TABLET. PO SCH ×2 (08:17→20:04)
[2021-01-01] MEDS: LACTOBACILLUS RHAMNOSUS GG 1 CAPSULE. PO SCH ×2 (08:17→20:04)
[2021-01-01] MEDS: SERTRALINE 50 MG TABLET. PO SCH (08:17)
[2021-01-01] MEDS: FLUTICASONE 50MCG/NASAL SPRAY 16GM BOTTLE. NS SCH ×2 (08:18→20:07)
[2021-01-01] MEDS: CHOLECALCIFEROL (VITAMIN D3) 1,000 UNIT TABLET PO SCH (08:18)
--- NOTE | 2021-01-01 08:52 | PDOC ---
Exam Note: Valente Note: This note is a late entry for 12/31/2020 covers elements not covered in my initial note. Subjective: The patient was seen individually in the evening of 12/31/2020 with Blas TORRES, discussed and reviewed the chart. The patient slept 6-1/2 hours previous night. He has been confused, intrusive, at times hallucinating. He is very busy, restless. Review of Systems: No CV, , pulmonary, eye system symptoms on review. Reliability poor. Mental Status Exam: The patient is oriented to himself. He is confused, anxious, restless. Insight and judgment, recent and remote memory, attention and concentration, fund of knowledge is poor consistent with his diagnoses. No suicidal or homicidal ideation. Laboratory Data: Reviewed. Impression: Major neurocognitive disorder Alzheimer vascular with delusion, depression, behavioral disturbance. Anxiety disorder unspecified. Impulse control disorder unspecified. Plan: Continue rest of the psychotropics unchanged. Assessment: Vital Signs/I&O: Vital Signs Date Time Temp Pulse Resp B/P (MAP) Pulse Ox O2 Delivery O2 Flow Rate FiO2 01/01/21 06:25 98.0 57 18 124/70 (88) 95 12/30/20 06:36 Room Air I & O 12/31/20 12/31/20 01/01/21 15:00 23:00 07:00 Intake Total 840 ml 600 ml Balance 840 ml 600 ml Current Medications: Meds: Current Medications Medications (Trade) Dose Ordered Sig/Farideh Route PRN Reason Start Time Stop Time Status Last Admin Dose Admin Acetaminophen (Tylenol) 650 mg PRN Q6HRS PRN PO MILD PAIN / TEMP > 100.3'F 12/18/20 13:15 Multi-Ingredient Ointment (Analgesic [place]) 1 herminio PRN QID PRN TP MUSCLE PAIN 12/18/20 13:15 Al Hydroxide/Mg Hydroxide (Mylanta Plus Xs) 15 ml PRN AFTMEALHC PRN PO DYSPEPSIA 12/18/20 13:15 Magnesium Hydroxide (Milk Of Magnesia) 2,400 mg PRN QHS PRN PO CONSTIPATION 12/18/20 13:15 Bromocriptine Mesylate (Parlodel) 2.5 mg QMWF@0900 PO 12/19/20 09:00 12/31/20 08:47 Bromocriptine Mesylate (Parlodel) 2.5 mg QMWF PO 12/19/20 16:00 12/18/20 13:25 DC Vitamin D (Vitamin D3) 4,000 unit DAILY PO 12/19/20 09:00 01/01/21 08:18 Donepezil HCl (Aricept) 10 mg QHS PO 12/18/20 21:00 12/31/20 19:51 Lactobacillus Rhamnosus (Culturelle) 1 cap BID PO 12/18/20 21:00 01/01/21 08:17 Latanoprost (Xalatan) 1 drop QHS OU 12/18/20 21:00 12/31/20 19:52 Memantine (Namenda) 10 mg BID PO 12/19/20 09:00 01/01/21 08:17 Olanzapine (ZyPREXA) 5 mg PRN Q4HRS PRN PO ANXIETY / AGITATION 12/18/20 13:00 12/19/20 20:59 DC 12/18/20 21:48 Olanzapine (ZyPREXA) 5 mg QHS PO 12/18/20 21:00 12/28/20 07:25 DC 12/27/20 20:56 Quetiapine Fumarate (SEROquel) 25 mg PRN Q6HRS PRN PO ANXIETY / AGITATION 12/18/20 13:00 12/18/20 21:48 Sertraline HCl (Zoloft) 25 mg DAILY PO 12/19/20 09:00 12/29/20 18:17 DC 12/29/20 08:28 Non-Formulary Medication (Fluticasone Propionate (Flovent 50MCG Diskus)) 50 mcg BID NS 12/18/20 21:00 UNV Naproxen (Naprosyn) 500 mg BID PO 12/18/20 21:00 01/01/21 08:17 Budesonide (Pulmicort) 0.5 mg RTBID NEB 12/18/20 20:00 UNV Fluticasone Propionate (Flonase) 2 spray BID NS 12/18/20 21:00 01/01/21 08:18 Trazodone HCl (Desyrel) 50 mg PRN QHS PRN PO INSOMNIA, MAY REPEAT X1 12/18/20 23:15 12/31/20 22:45 Quetiapine Fumarate (SEROquel) 50 mg 1X PRN PRN PO ANXIETY / AGITATION 12/18/20 23:15 Cancel Olanzapine (ZyPREXA ZYDIS) 5 mg PRN Q4HRS PRN PO PSYCHOSIS 12/19/20 21:00 12/28/20 16:17 DC 12/28/20 10:13 Olanzapine (ZyPREXA) 10 mg QHS PO 12/28/20 21:00 12/31/20 19:52 Olanzapine (ZyPREXA ZYDIS) 2.5 mg PRN Q2HR PRN PO PSYCHOSIS 12/28/20 16:15 12/30/20 13:05 Sertraline HCl (Zoloft) 50 mg DAILY PO 12/30/20 09:00 01/01/21 08:17 Divalproex Sodium (Depakote Sprinkles) 125 mg BID@0900,1700 PO 12/30/20 17:00 01/01/21 08:17 I have reviewed the current psychotropics carefully including drug interactions. Risk benefit ratio favors no change other than as noted in my dictated progress note. Diagnosis: Problems: (1) Impulse control disorder, unspecified (2) Anxiety disorder, unspecified (3) Dementia, vascular, with depression (4) Dementia, vascular, with delusions (5) Dementia in Alzheimer's disease with depression (6) Dementia in Alzheimer's disease with delusions (7) Dementia of the Alzheimer's type with early onset with behavioral disturbance (8) Major neurocognitive disorder HELIO RÍOS MD Jan 01, 2021 08:52
[2021-01-01 16:23] VITALS: BP 112/64
[2021-01-01] MEDS: OLANZapine 5 MG TABLET PO SCH (20:03)
[2021-01-01] MEDS: DONEPEZIL HCL 10 MG TABLET PO SCH (20:04)
[2021-01-01] MEDS: LATANOPROST 0.005% OPHTH SOLUTION 2.5ML BOTTLE. OU SCH (20:07)
--- NOTE | 2021-01-01 22:02 | PDOC ---
Exam Note: Valente Note: Please also refer to the separate dictated note~for this date of service dictated separately.~Patient seen individually. Discussed the patient with Nursing staff reviewed the chart.~Reviewed interim history and current functioning. Reviewed vital signs,~Labs/ Radiology~and current medications noted below. Continue current treatment with the changes noted in the dictated addendum note Assessment: Vital Signs/I&O: Vital Signs Date Time Temp Pulse Resp B/P (MAP) Pulse Ox O2 Delivery O2 Flow Rate FiO2 01/01/21 16:23 98.0 66 18 112/64 (80) 96 12/30/20 06:36 Room Air I & O 12/31/20 12/31/20 01/01/21 15:00 23:00 07:00 Intake Total 840 ml 600 ml Balance 840 ml 600 ml Current Medications: Meds: Current Medications Medications (Trade) Dose Ordered Sig/Farideh Route PRN Reason Start Time Stop Time Status Last Admin Dose Admin Acetaminophen (Tylenol) 650 mg PRN Q6HRS PRN PO MILD PAIN / TEMP > 100.3'F 12/18/20 13:15 Multi-Ingredient Ointment (Analgesic [place]) 1 herminio PRN QID PRN TP MUSCLE PAIN 12/18/20 13:15 Al Hydroxide/Mg Hydroxide (Mylanta Plus Xs) 15 ml PRN AFTMEALHC PRN PO DYSPEPSIA 12/18/20 13:15 Magnesium Hydroxide (Milk Of Magnesia) 2,400 mg PRN QHS PRN PO CONSTIPATION 12/18/20 13:15 Bromocriptine Mesylate (Parlodel) 2.5 mg QMWF@0900 PO 12/19/20 09:00 12/31/20 08:47 Bromocriptine Mesylate (Parlodel) 2.5 mg QMWF PO 12/19/20 16:00 12/18/20 13:25 DC Vitamin D (Vitamin D3) 4,000 unit DAILY PO 12/19/20 09:00 01/01/21 08:18 Donepezil HCl (Aricept) 10 mg QHS PO 12/18/20 21:00 01/01/21 20:04 Lactobacillus Rhamnosus (Culturelle) 1 cap BID PO 12/18/20 21:00 01/01/21 20:04 Latanoprost (Xalatan) 1 drop QHS OU 12/18/20 21:00 01/01/21 20:07 Memantine (Namenda) 10 mg BID PO 12/19/20 09:00 01/01/21 20:04 Olanzapine (ZyPREXA) 5 mg PRN Q4HRS PRN PO ANXIETY / AGITATION 12/18/20 13:00 12/19/20 20:59 DC 12/18/20 21:48 Olanzapine (ZyPREXA) 5 mg QHS PO 12/18/20 21:00 12/28/20 07:25 DC 12/27/20 20:56 Quetiapine Fumarate (SEROquel) 25 mg PRN Q6HRS PRN PO ANXIETY / AGITATION 12/18/20 13:00 12/18/20 21:48 Sertraline HCl (Zoloft) 25 mg DAILY PO 12/19/20 09:00 12/29/20 18:17 DC 12/29/20 08:28 Non-Formulary Medication (Fluticasone Propionate (Flovent 50MCG Diskus)) 50 mcg BID NS 12/18/20 21:00 UNV Naproxen (Naprosyn) 500 mg BID PO 12/18/20 21:00 01/01/21 20:03 Budesonide (Pulmicort) 0.5 mg RTBID NEB 12/18/20 20:00 UNV Fluticasone Propionate (Flonase) 2 spray BID NS 12/18/20 21:00 01/01/21 20:07 Trazodone HCl (Desyrel) 50 mg PRN QHS PRN PO INSOMNIA, MAY REPEAT X1 12/18/20 23:15 12/31/20 22:45 Quetiapine Fumarate (SEROquel) 50 mg 1X PRN PRN PO ANXIETY / AGITATION 12/18/20 23:15 Cancel Olanzapine (ZyPREXA ZYDIS) 5 mg PRN Q4HRS PRN PO PSYCHOSIS 12/19/20 21:00 12/28/20 16:17 DC 12/28/20 10:13 Olanzapine (ZyPREXA) 10 mg QHS PO 12/28/20 21:00 01/01/21 20:03 Olanzapine (ZyPREXA ZYDIS) 2.5 mg PRN Q2HR PRN PO PSYCHOSIS 12/28/20 16:15 12/30/20 13:05 Sertraline HCl (Zoloft) 50 mg DAILY PO 12/30/20 09:00 01/01/21 08:17 Divalproex Sodium (Depakote Sprinkles) 125 mg BID@0900,1700 PO 12/30/20 17:00 01/01/21 17:17 I have reviewed the current psychotropics carefully including drug interactions. Risk benefit ratio favors no change other than as noted in my dictated progress note. Diagnosis: Problems: (1) Impulse control disorder, unspecified (2) Anxiety disorder, unspecified (3) Dementia, vascular, with depression (4) Dementia, vascular, with delusions (5) Dementia in Alzheimer's disease with depression (6) Dementia in Alzheimer's disease with delusions (7) Dementia of the Alzheimer's type with early onset with behavioral disturbance (8) Major neurocognitive disorder HELIO RÍOS MD Jan 01, 2021 22:02
[2021-01-02] MEDS: traZODone 50 MG TABLET. PO PRN ×2 (00:02→20:32)
[2021-01-02 06:11] LABS: BASO # 0.1 x10^3/uL (0.0-0.2); BASO % 1 % (0-3); EOS # 0.1 x10^3/uL (0.0-0.7); EOS % 2 % (0-3); HEMATOCRIT 37.1 % (39.0-53.0); HEMOGLOBIN 12.3 g/dL (13.0-17.5); LYMPH # 1.9 x10^3/uL (1.0-4.8); LYMPH % 39 % (24-48); MEAN CORPUSCULAR HEMOGLOBIN 32 pg (25-35); MEAN CORPUSCULAR HGB CONC 33 g/dL (31-37); MEAN CORPUSCULAR VOLUME 96 fL (79-100); MONO # 0.4 x10^3/uL (0.0-1.1); MONO % 9 % (0-9); NEUT # 2.3 x10^3uL (1.8-7.7); NEUT % 48 % (31-73); PLATELET COUNT 270 x10^3/uL (140-400); RED BLOOD COUNT 3.87 x10^6/uL (4.30-5.70); RED CELL DISTRIBUTION WIDTH 13.9 % (11.5-14.5); WHITE BLOOD COUNT 4.7 x10^3/uL (4.0-11.0)
[2021-01-02 06:25] LABS: ALBUMIN/GLOBULIN RATIO 0.8 (1.0-1.7); ALK PHOS 72 U/L (46-116); ALT (SGPT) 23 U/L (16-63); ANION GAP 3 (6-14); AST (SGOT) 14 U/L (15-37); BLOOD UREA NITROGEN 27 mg/dL (8-26); BUN/CREATININE RATIO 30 (6-20); CALCIUM 9.2 mg/dL (8.5-10.1); CARBON DIOXIDE 32 mmol/L (21-32); CHLORIDE 111 mmol/L (98-107); CREATININE 0.9 mg/dL (0.7-1.3); GLUCOSE 88 mg/dL (70-99); POTASSIUM 4.3 mmol/L (3.5-5.1); SODIUM 146 mmol/L (136-145); TOTAL BILIRUBIN 0.4 mg/dL (0.2-1.0)
[2021-01-02 06:29] LABS: VAL ACID 15 mcg/mL (50-100)
[2021-01-02 06:39] VITALS: BP 126/75
--- NOTE | 2021-01-02 07:48 | PDOC ---
Exam Note: Valente Note: This note is a late entry for 01/01/2021 covers elements not covered in my initial note. Subjective: The patient was seen individually in the evening of 01/01/2021 with Blas TORRES, discussed and reviewed the chart. The patient slept 6 hours previous night. He has been anxious, restless. Received trazodone x2 yesterday and slept better. He has been trying to push the wheelchair of other patients. Review of Systems: No CV, , pulmonary, eye system symptoms on review. Reliability poor. Mental Status Exam: The patient is oriented to himself. Insight and judgment, recent and remote memory, attention and concentration, fund of knowledge is poor consistent with his diagnoses. No suicidal or homicidal ideation. Laboratory Data: Reviewed. Impression: Major neurocognitive disorder Alzheimer vascular with delusion, depression, behavioral disturbance. Anxiety disorder unspecified. Impulse control disorder unspecified. Plan: Continue rest of the psychotropics unchanged. Assessment: Vital Signs/I&O: Vital Signs Date Time Temp Pulse Resp B/P (MAP) Pulse Ox O2 Delivery O2 Flow Rate FiO2 01/02/21 06:39 97.1 60 18 126/75 (92) 95 12/30/20 06:36 Room Air I & O 01/01/21 01/01/21 01/02/21 15:00 23:00 07:00 Intake Total 1080 ml 360 ml Balance 1080 ml 360 ml Labs: Laboratory Tests Test 01/02/21 05:58 White Blood Count 4.7 x10^3/uL (4.0-11.0) Red Blood Count 3.87 x10^6/uL (4.30-5.70) L Hemoglobin 12.3 g/dL (13.0-17.5) L Hematocrit 37.1 % (39.0-53.0) L Mean Corpuscular Volume 96 fL (79-100) Mean Corpuscular Hemoglobin 32 pg (25-35) Mean Corpuscular Hemoglobin Concent 33 g/dL (31-37) Red Cell Distribution Width 13.9 % (11.5-14.5) Platelet Count 270 x10^3/uL (140-400) Neutrophils (%) (Auto) 48 % (31-73) Lymphocytes (%) (Auto) 39 % (24-48) Monocytes (%) (Auto) 9 % (0-9) Eosinophils (%) (Auto) 2 % (0-3) Basophils (%) (Auto) 1 % (0-3) Neutrophils # (Auto) 2.3 x10^3uL (1.8-7.7) Lymphocytes # (Auto) 1.9 x10^3/uL (1.0-4.8) Monocytes # (Auto) 0.4 x10^3/uL (0.0-1.1) Eosinophils # (Auto) 0.1 x10^3/uL (0.0-0.7) Basophils # (Auto) 0.1 x10^3/uL (0.0-0.2) Sodium Level 146 mmol/L (136-145) H Potassium Level 4.3 mmol/L (3.5-5.1) Chloride Level 111 mmol/L (98-107) H Carbon Dioxide Level 32 mmol/L (21-32) Anion Gap 3 (6-14) L Blood Urea Nitrogen 27 mg/dL (8-26) H Creatinine 0.9 mg/dL (0.7-1.3) Estimated GFR (Cockcroft-Gault) 81.0 BUN/Creatinine Ratio 30 (6-20) H Glucose Level 88 mg/dL (70-99) Calcium Level 9.2 mg/dL (8.5-10.1) Total Bilirubin 0.4 mg/dL (0.2-1.0) Aspartate Amino Transferase (AST) 14 U/L (15-37) L Alanine Aminotransferase (ALT) 23 U/L (16-63) Alkaline Phosphatase 72 U/L (46-116) Total Protein 7.0 g/dL (6.4-8.2) Albumin 3.0 g/dL (3.4-5.0) L Albumin/Globulin Ratio 0.8 (1.0-1.7) L Valproic Acid Level 15 mcg/mL (50-100) L Valproic Acid Last Dose Date 01/01/21 Valproic Acid Last Dose Time 1700 Current Medications: Meds: Laboratory Tests Test 01/02/21 05:58 White Blood Count 4.7 x10^3/uL Red Blood Count 3.87 x10^6/uL Hemoglobin 12.3 g/dL Hematocrit 37.1 % Mean Corpuscular Volume 96 fL Mean Corpuscular Hemoglobin 32 pg Mean Corpuscular Hemoglobin Concent 33 g/dL Red Cell Distribution Width 13.9 % Platelet Count 270 x10^3/uL Neutrophils (%) (Auto) 48 % Lymphocytes (%) (Auto) 39 % Monocytes (%) (Auto) 9 % Eosinophils (%) (Auto) 2 % Basophils (%) (Auto) 1 % Neutrophils # (Auto) 2.3 x10^3uL Lymphocytes # (Auto) 1.9 x10^3/uL Monocytes # (Auto) 0.4 x10^3/uL Eosinophils # (Auto) 0.1 x10^3/uL Basophils # (Auto) 0.1 x10^3/uL Sodium Level 146 mmol/L Potassium Level 4.3 mmol/L Chloride Level 111 mmol/L Carbon Dioxide Level 32 mmol/L Anion Gap 3 Blood Urea Nitrogen 27 mg/dL Creatinine 0.9 mg/dL Estimated GFR (Cockcroft-Gault) 81.0 BUN/Creatinine Ratio 30 Glucose Level 88 mg/dL Calcium Level 9.2 mg/dL Total Bilirubin 0.4 mg/dL Aspartate Amino Transf (AST/SGOT) 14 U/L Alanine Aminotransferase (ALT/SGPT) 23 U/L Alkaline Phosphatase 72 U/L Total Protein 7.0 g/dL Albumin 3.0 g/dL Albumin/Globulin Ratio 0.8 Valproic Acid (Depakene) Level 15 mcg/mL Valproic Acid Last Dose Date 01/01/21 Valproic Acid Last Dose Time 1700 Current Medications Medications (Trade) Dose Ordered Sig/Farideh Route PRN Reason Start Time Stop Time Status Last Admin Dose Admin Acetaminophen (Tylenol) 650 mg PRN Q6HRS PRN PO MILD PAIN / TEMP > 100.3'F 12/18/20 13:15 Multi-Ingredient Ointment (Analgesic [place]) 1 herminio PRN QID PRN TP MUSCLE PAIN 12/18/20 13:15 Al Hydroxide/Mg Hydroxide (Mylanta Plus Xs) 15 ml PRN AFTMEALHC PRN PO DYSPEPSIA 12/18/20 13:15 Magnesium Hydroxide (Milk Of Magnesia) 2,400 mg PRN QHS PRN PO CONSTIPATION 12/18/20 13:15 Bromocriptine Mesylate (Parlodel) 2.5 mg QMWF@0900 PO 12/19/20 09:00 12/31/20 08:47 Bromocriptine Mesylate (Parlodel) 2.5 mg QMWF PO 12/19/20 16:00 12/18/20 13:25 DC Vitamin D (Vitamin D3) 4,000 unit DAILY PO 12/19/20 09:00 01/01/21 08:18 Donepezil HCl (Aricept) 10 mg QHS PO 12/18/20 21:00 01/01/21 20:04 Lactobacillus Rhamnosus (Culturelle) 1 cap BID PO 12/18/20 21:00 01/01/21 20:04 Latanoprost (Xalatan) 1 drop QHS OU 12/18/20 21:00 01/01/21 20:07 Memantine (Namenda) 10 mg BID PO 12/19/20 09:00 01/01/21 20:04 Olanzapine (ZyPREXA) 5 mg PRN Q4HRS PRN PO ANXIETY / AGITATION 12/18/20 13:00 12/19/20 20:59 DC 12/18/20 21:48 Olanzapine (ZyPREXA) 5 mg QHS PO 12/18/20 21:00 12/28/20 07:25 DC 12/27/20 20:56 Quetiapine Fumarate (SEROquel) 25 mg PRN Q6HRS PRN PO ANXIETY / AGITATION 12/18/20 13:00 12/18/20 21:48 Sertraline HCl (Zoloft) 25 mg DAILY PO 12/19/20 09:00 12/29/20 18:17 DC 12/29/20 08:28 Non-Formulary Medication (Fluticasone Propionate (Flovent 50MCG Diskus)) 50 mcg BID NS 12/18/20 21:00 UNV Naproxen (Naprosyn) 500 mg BID PO 12/18/20 21:00 01/01/21 20:03 Budesonide (Pulmicort) 0.5 mg RTBID NEB 12/18/20 20:00 UNV Fluticasone Propionate (Flonase) 2 spray BID NS 12/18/20 21:00 01/01/21 20:07 Trazodone HCl (Desyrel) 50 mg PRN QHS PRN PO INSOMNIA, MAY REPEAT X1 12/18/20 23:15 01/02/21 00:02 Quetiapine Fumarate (SEROquel) 50 mg 1X PRN PRN PO ANXIETY / AGITATION 12/18/20 23:15 Cancel Olanzapine (ZyPREXA ZYDIS) 5 mg PRN Q4HRS PRN PO PSYCHOSIS 12/19/20 21:00 12/28/20 16:17 DC 12/28/20 10:13 Olanzapine (ZyPREXA) 10 mg QHS PO 12/28/20 21:00 01/01/21 20:03 Olanzapine (ZyPREXA ZYDIS) 2.5 mg PRN Q2HR PRN PO PSYCHOSIS 12/28/20 16:15 12/30/20 13:05 Sertraline HCl (Zoloft) 50 mg DAILY PO 12/30/20 09:00 01/01/21 08:17 Divalproex Sodium (Depakote Sprinkles) 125 mg BID@0900,1700 PO 12/30/20 17:00 01/01/21 17:17 I have reviewed the current psychotropics carefully including drug interactions. Risk benefit ratio favors no change other than as noted in my dictated progress note. Diagnosis: Problems: (1) Impulse control disorder, unspecified (2) Anxiety disorder, unspecified (3) Dementia, vascular, with depression (4) Dementia, vascular, with delusions (5) Dementia in Alzheimer's disease with depression (6) Dementia in Alzheimer's disease with delusions (7) Dementia of the Alzheimer's type with early onset with behavioral disturbance (8) Major neurocognitive disorder HELIO RÍOS MD Jan 02, 2021 07:48
[2021-01-02] MEDS: CHOLECALCIFEROL (VITAMIN D3) 1,000 UNIT TABLET PO SCH (09:53)
[2021-01-02] MEDS: NAPROXEN 500 MG TABLET PO SCH ×2 (09:54→20:30)
[2021-01-02] MEDS: SERTRALINE 50 MG TABLET. PO SCH (09:54)
[2021-01-02] MEDS: LACTOBACILLUS RHAMNOSUS GG 1 CAPSULE. PO SCH ×2 (09:54→20:30)
[2021-01-02] MEDS: DIVALPROEX 125 MG CAP.SPRINK PO SCH ×2 (09:54→17:07)
[2021-01-02] MEDS: MEMANTINE 10 MG TABLET. PO SCH ×2 (09:54→20:30)
[2021-01-02] MEDS: BROMOCRIPTINE MESYLATE 2.5 MG PO SCH (10:09)
[2021-01-02] MEDS: FLUTICASONE 50MCG/NASAL SPRAY 16GM BOTTLE. NS SCH ×2 (10:09→20:30)
[2021-01-02 15:53] VITALS: BP 137/83
[2021-01-02] MEDS: OLANZapine 5 MG TABLET PO SCH (20:30)
[2021-01-02] MEDS: DONEPEZIL HCL 10 MG TABLET PO SCH (20:30)
[2021-01-02] MEDS: LATANOPROST 0.005% OPHTH SOLUTION 2.5ML BOTTLE. OU SCH (20:30)
--- NOTE | 2021-01-02 22:02 | PDOC ---
Exam Note: Valente Note: Please also refer to the separate dictated note~for this date of service dictated separately.~Patient seen individually. Discussed the patient with Nursing staff reviewed the chart.~Reviewed interim history and current functioning. Reviewed vital signs,~Labs/ Radiology~and current medications noted below. Continue current treatment with the changes noted in the dictated addendum note Assessment: Vital Signs/I&O: Vital Signs Date Time Temp Pulse Resp B/P (MAP) Pulse Ox O2 Delivery O2 Flow Rate FiO2 01/02/21 15:53 97.1 90 20 137/83 (101) 95 12/30/20 06:36 Room Air I & O 01/01/21 01/01/21 01/02/21 15:00 23:00 07:00 Intake Total 1080 ml 360 ml Balance 1080 ml 360 ml Labs: Laboratory Tests Test 01/02/21 05:58 White Blood Count 4.7 x10^3/uL (4.0-11.0) Red Blood Count 3.87 x10^6/uL (4.30-5.70) L Hemoglobin 12.3 g/dL (13.0-17.5) L Hematocrit 37.1 % (39.0-53.0) L Mean Corpuscular Volume 96 fL (79-100) Mean Corpuscular Hemoglobin 32 pg (25-35) Mean Corpuscular Hemoglobin Concent 33 g/dL (31-37) Red Cell Distribution Width 13.9 % (11.5-14.5) Platelet Count 270 x10^3/uL (140-400) Neutrophils (%) (Auto) 48 % (31-73) Lymphocytes (%) (Auto) 39 % (24-48) Monocytes (%) (Auto) 9 % (0-9) Eosinophils (%) (Auto) 2 % (0-3) Basophils (%) (Auto) 1 % (0-3) Neutrophils # (Auto) 2.3 x10^3uL (1.8-7.7) Lymphocytes # (Auto) 1.9 x10^3/uL (1.0-4.8) Monocytes # (Auto) 0.4 x10^3/uL (0.0-1.1) Eosinophils # (Auto) 0.1 x10^3/uL (0.0-0.7) Basophils # (Auto) 0.1 x10^3/uL (0.0-0.2) Sodium Level 146 mmol/L (136-145) H Potassium Level 4.3 mmol/L (3.5-5.1) Chloride Level 111 mmol/L (98-107) H Carbon Dioxide Level 32 mmol/L (21-32) Anion Gap 3 (6-14) L Blood Urea Nitrogen 27 mg/dL (8-26) H Creatinine 0.9 mg/dL (0.7-1.3) Estimated GFR (Cockcroft-Gault) 81.0 BUN/Creatinine Ratio 30 (6-20) H Glucose Level 88 mg/dL (70-99) Calcium Level 9.2 mg/dL (8.5-10.1) Total Bilirubin 0.4 mg/dL (0.2-1.0) Aspartate Amino Transferase (AST) 14 U/L (15-37) L Alanine Aminotransferase (ALT) 23 U/L (16-63) Alkaline Phosphatase 72 U/L (46-116) Total Protein 7.0 g/dL (6.4-8.2) Albumin 3.0 g/dL (3.4-5.0) L Albumin/Globulin Ratio 0.8 (1.0-1.7) L Valproic Acid Level 15 mcg/mL (50-100) L Valproic Acid Last Dose Date 01/01/21 Valproic Acid Last Dose Time 1700 Current Medications: Meds: Laboratory Tests Test 01/02/21 05:58 White Blood Count 4.7 x10^3/uL Red Blood Count 3.87 x10^6/uL Hemoglobin 12.3 g/dL Hematocrit 37.1 % Mean Corpuscular Volume 96 fL Mean Corpuscular Hemoglobin 32 pg Mean Corpuscular Hemoglobin Concent 33 g/dL Red Cell Distribution Width 13.9 % Platelet Count 270 x10^3/uL Neutrophils (%) (Auto) 48 % Lymphocytes (%) (Auto) 39 % Monocytes (%) (Auto) 9 % Eosinophils (%) (Auto) 2 % Basophils (%) (Auto) 1 % Neutrophils # (Auto) 2.3 x10^3uL Lymphocytes # (Auto) 1.9 x10^3/uL Monocytes # (Auto) 0.4 x10^3/uL Eosinophils # (Auto) 0.1 x10^3/uL Basophils # (Auto) 0.1 x10^3/uL Sodium Level 146 mmol/L Potassium Level 4.3 mmol/L Chloride Level 111 mmol/L Carbon Dioxide Level 32 mmol/L Anion Gap 3 Blood Urea Nitrogen 27 mg/dL Creatinine 0.9 mg/dL Estimated GFR (Cockcroft-Gault) 81.0 BUN/Creatinine Ratio 30 Glucose Level 88 mg/dL Calcium Level 9.2 mg/dL Total Bilirubin 0.4 mg/dL Aspartate Amino Transf (AST/SGOT) 14 U/L Alanine Aminotransferase (ALT/SGPT) 23 U/L Alkaline Phosphatase 72 U/L Total Protein 7.0 g/dL Albumin 3.0 g/dL Albumin/Globulin Ratio 0.8 Valproic Acid (Depakene) Level 15 mcg/mL Valproic Acid Last Dose Date 01/01/21 Valproic Acid Last Dose Time 1700 Current Medications Medications (Trade) Dose Ordered Sig/Farideh Route PRN Reason Start Time Stop Time Status Last Admin Dose Admin Acetaminophen (Tylenol) 650 mg PRN Q6HRS PRN PO MILD PAIN / TEMP > 100.3'F 12/18/20 13:15 Multi-Ingredient Ointment (Analgesic [place]) 1 herminio PRN QID PRN TP MUSCLE PAIN 12/18/20 13:15 Al Hydroxide/Mg Hydroxide (Mylanta Plus Xs) 15 ml PRN AFTMEALHC PRN PO DYSPEPSIA 12/18/20 13:15 Magnesium Hydroxide (Milk Of Magnesia) 2,400 mg PRN QHS PRN PO CONSTIPATION 12/18/20 13:15 Bromocriptine Mesylate (Parlodel) 2.5 mg QMWF@0900 PO 12/19/20 09:00 01/02/21 10:09 Bromocriptine Mesylate (Parlodel) 2.5 mg QMWF PO 12/19/20 16:00 12/18/20 13:25 DC Vitamin D (Vitamin D3) 4,000 unit DAILY PO 12/19/20 09:00 01/02/21 09:53 Donepezil HCl (Aricept) 10 mg QHS PO 12/18/20 21:00 01/02/21 20:30 Lactobacillus Rhamnosus (Culturelle) 1 cap BID PO 12/18/20 21:00 01/02/21 20:30 Latanoprost (Xalatan) 1 drop QHS OU 12/18/20 21:00 01/02/21 20:30 Memantine (Namenda) 10 mg BID PO 12/19/20 09:00 01/02/21 20:30 Olanzapine (ZyPREXA) 5 mg PRN Q4HRS PRN PO ANXIETY / AGITATION 12/18/20 13:00 12/19/20 20:59 DC 12/18/20 21:48 Olanzapine (ZyPREXA) 5 mg QHS PO 12/18/20 21:00 12/28/20 07:25 DC 12/27/20 20:56 Quetiapine Fumarate (SEROquel) 25 mg PRN Q6HRS PRN PO ANXIETY / AGITATION 12/18/20 13:00 12/18/20 21:48 Sertraline HCl (Zoloft) 25 mg DAILY PO 12/19/20 09:00 12/29/20 18:17 DC 12/29/20 08:28 Non-Formulary Medication (Fluticasone Propionate (Flovent 50MCG Diskus)) 50 mcg BID NS 12/18/20 21:00 UNV Naproxen (Naprosyn) 500 mg BID PO 12/18/20 21:00 01/02/21 20:30 Budesonide (Pulmicort) 0.5 mg RTBID NEB 12/18/20 20:00 UNV Fluticasone Propionate (Flonase) 2 spray BID NS 12/18/20 21:00 01/02/21 20:30 Trazodone HCl (Desyrel) 50 mg PRN QHS PRN PO INSOMNIA, MAY REPEAT X1 12/18/20 23:15 01/02/21 20:32 Quetiapine Fumarate (SEROquel) 50 mg 1X PRN PRN PO ANXIETY / AGITATION 12/18/20 23:15 Cancel Olanzapine (ZyPREXA ZYDIS) 5 mg PRN Q4HRS PRN PO PSYCHOSIS 12/19/20 21:00 12/28/20 16:17 DC 12/28/20 10:13 Olanzapine (ZyPREXA) 10 mg QHS PO 12/28/20 21:00 01/02/21 20:30 Olanzapine (ZyPREXA ZYDIS) 2.5 mg PRN Q2HR PRN PO PSYCHOSIS 12/28/20 16:15 12/30/20 13:05 Sertraline HCl (Zoloft) 50 mg DAILY PO 12/30/20 09:00 01/02/21 09:54 Divalproex Sodium (Depakote Sprinkles) 125 mg BID@0900,1700 PO 12/30/20 17:00 01/02/21 17:07 I have reviewed the current psychotropics carefully including drug interactions. Risk benefit ratio favors no change other than as noted in my dictated progress note. Diagnosis: Problems: (1) Impulse control disorder, unspecified (2) Anxiety disorder, unspecified (3) Dementia, vascular, with depression (4) Dementia, vascular, with delusions (5) Dementia in Alzheimer's disease with depression (6) Dementia in Alzheimer's disease with delusions (7) Dementia of the Alzheimer's type with early onset with behavioral disturbance (8) Major neurocognitive disorder HELIO RÍOS MD Jan 02, 2021 22:02
[2021-01-03 06:28] VITALS: BP 151/80
--- NOTE | 2021-01-03 07:11 | PDOC ---
Exam Note: Valente Note: This note is a late entry for 01/02/2021 covers elements not covered in my initial note. Subjective: The patient was seen individually in the evening of 01/02/2021 with Blas TORRES, discussed and reviewed the chart. The patient slept 7-1/4 hours previous night. He remains confused. Reportedly was trying to snuggle closely to a female nursing staff last night but nothing inappropriate noted today. Received trazodone. He was restless in the evening. Reportedly his wants a daily report and social service staff will coordinate this. Valproic acid level is 15. Review of Systems: No CV, , pulmonary, eye system symptoms on review. Reliability poor. Mental Status Exam: The patient is oriented to himself. Insight and judgment, recent and remote memory, attention and concentration, fund of knowledge is poor consistent with his diagnoses. No suicidal or homicidal ideation. Laboratory Data: Reviewed. Impression: Major neurocognitive disorder Alzheimer vascular with delusion, depression, behavioral disturbance. Anxiety disorder unspecified. Impulse con trol disorder unspecified. Plan: Continue rest of the psychotropics unchanged. Despite valproic acid level being subtherapeutic given the patients behavior as stable we will not increase the Depakote for now. Assessment: Vital Signs/I&O: Vital Signs Date Time Temp Pulse Resp B/P (MAP) Pulse Ox O2 Delivery O2 Flow Rate FiO2 01/03/21 06:28 97.1 56 16 151/80 (103) 98 12/30/20 06:36 Room Air I & O 01/02/21 01/02/21 01/03/21 15:00 23:00 07:00 Intake Total 680 ml 600 ml Balance 680 ml 600 ml Current Medications: Meds: Current Medications Medications (Trade) Dose Ordered Sig/Farideh Route PRN Reason Start Time Stop Time Status Last Admin Dose Admin Acetaminophen (Tylenol) 650 mg PRN Q6HRS PRN PO MILD PAIN / TEMP > 100.3'F 12/18/20 13:15 Multi-Ingredient Ointment (Analgesic [place]) 1 herminio PRN QID PRN TP MUSCLE PAIN 12/18/20 13:15 Al Hydroxide/Mg Hydroxide (Mylanta Plus Xs) 15 ml PRN AFTMEALHC PRN PO DYSPEPSIA 12/18/20 13:15 Magnesium Hydroxide (Milk Of Magnesia) 2,400 mg PRN QHS PRN PO CONSTIPATION 12/18/20 13:15 Bromocriptine Mesylate (Parlodel) 2.5 mg QMWF@0900 PO 12/19/20 09:00 01/02/21 10:09 Bromocriptine Mesylate (Parlodel) 2.5 mg QMWF PO 12/19/20 16:00 12/18/20 13:25 DC Vitamin D (Vitamin D3) 4,000 unit DAILY PO 12/19/20 09:00 01/02/21 09:53 Donepezil HCl (Aricept) 10 mg QHS PO 12/18/20 21:00 01/02/21 20:30 Lactobacillus Rhamnosus (Culturelle) 1 cap BID PO 12/18/20 21:00 01/02/21 20:30 Latanoprost (Xalatan) 1 drop QHS OU 12/18/20 21:00 01/02/21 20:30 Memantine (Namenda) 10 mg BID PO 12/19/20 09:00 01/02/21 20:30 Olanzapine (ZyPREXA) 5 mg PRN Q4HRS PRN PO ANXIETY / AGITATION 12/18/20 13:00 12/19/20 20:59 DC 12/18/20 21:48 Olanzapine (ZyPREXA) 5 mg QHS PO 12/18/20 21:00 12/28/20 07:25 DC 12/27/20 20:56 Quetiapine Fumarate (SEROquel) 25 mg PRN Q6HRS PRN PO ANXIETY / AGITATION 12/18/20 13:00 12/18/20 21:48 Sertraline HCl (Zoloft) 25 mg DAILY PO 12/19/20 09:00 12/29/20 18:17 DC 12/29/20 08:28 Non-Formulary Medication (Fluticasone Propionate (Flovent 50MCG Diskus)) 50 mcg BID NS 12/18/20 21:00 UNV Naproxen (Naprosyn) 500 mg BID PO 12/18/20 21:00 01/02/21 20:30 Budesonide (Pulmicort) 0.5 mg RTBID NEB 12/18/20 20:00 UNV Fluticasone Propionate (Flonase) 2 spray BID NS 12/18/20 21:00 01/02/21 20:30 Trazodone HCl (Desyrel) 50 mg PRN QHS PRN PO INSOMNIA, MAY REPEAT X1 12/18/20 23:15 01/02/21 20:32 Quetiapine Fumarate (SEROquel) 50 mg 1X PRN PRN PO ANXIETY / AGITATION 12/18/20 23:15 Cancel Olanzapine (ZyPREXA ZYDIS) 5 mg PRN Q4HRS PRN PO PSYCHOSIS 12/19/20 21:00 12/28/20 16:17 DC 12/28/20 10:13 Olanzapine (ZyPREXA) 10 mg QHS PO 12/28/20 21:00 01/02/21 20:30 Olanzapine (ZyPREXA ZYDIS) 2.5 mg PRN Q2HR PRN PO PSYCHOSIS 12/28/20 16:15 12/30/20 13:05 Sertraline HCl (Zoloft) 50 mg DAILY PO 12/30/20 09:00 01/02/21 09:54 Divalproex Sodium (Depakote Sprinkles) 125 mg BID@0900,1700 PO 12/30/20 17:00 01/02/21 17:07 I have reviewed the current psychotropics carefully including drug interactions. Risk benefit ratio favors no change other than as noted in my dictated progress note. Diagnosis: Problems: (1) Impulse control disorder, unspecified (2) Anxiety disorder, unspecified (3) Dementia, vascular, with depression (4) Dementia, vascular, with delusions (5) Dementia in Alzheimer's disease with depression (6) Dementia in Alzheimer's disease with delusions (7) Dementia of the Alzheimer's type with early onset with behavioral d isturbance (8) Major neurocognitive disorder HELIO RÍOS MD Jan 03, 2021 07:11
[2021-01-03] MEDS: DIVALPROEX 125 MG CAP.SPRINK PO SCH ×2 (08:26→16:50)
[2021-01-03] MEDS: CHOLECALCIFEROL (VITAMIN D3) 1,000 UNIT TABLET PO SCH (08:26)
[2021-01-03] MEDS: LACTOBACILLUS RHAMNOSUS GG 1 CAPSULE. PO SCH ×2 (08:26→20:29)
[2021-01-03] MEDS: MEMANTINE 10 MG TABLET. PO SCH ×2 (08:26→20:29)
[2021-01-03] MEDS: SERTRALINE 50 MG TABLET. PO SCH (08:26)
[2021-01-03] MEDS: NAPROXEN 500 MG TABLET PO SCH ×2 (08:26→20:29)
[2021-01-03] MEDS: FLUTICASONE 50MCG/NASAL SPRAY 16GM BOTTLE. NS SCH ×2 (08:27→20:29)
--- NOTE | 2021-01-03 16:13 | TX PLAN ---
Interdisciplinary Tx Plan Admission Information Dec 18, 2020 at 11:15 Legal Status (on Admission): Voluntary DPOA/Guardian Name: Diana Mishra- Contact Other Contact Name: KikaRN Other Contact Phone: [phone] ([phone] Verified Code Status: DNR Allergies: Coded Allergies: No Known Drug Allergies (Unverified , 12/12/20) Diagnoses Primary Diagnosis: Per H&P: ADMITTING DIAGNOSES: AXIS I: 1. 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 2. Generalized anxiety disorder. AXIS II: None. AXIS III: Recent diagnosis of Alzheimer's disease, pituitary macroadenoma and normal pressure hydrocephalus. Reasons for Admission: Aggressive, Agitated, Confusion/Disoriented Problem in Patient's Words: Pt showing confusion, just went to [facility], and all states she was told was that he was agitated and restless. Diana states that pt has lived at home and has dementia for years, but they just made a switch to pt going to facility. Additional Admission Comments: Per intake, pt exhibits agitation, agressive behavior towards family, progressive dementia, restless, fidgety, can't sit still, hyperverbal, unable to focus of follow commands, urinates in public, and talks about a dog when there is no dog. Problems Active Problems: Restless, fidgety, hyperverbal, confusion, disorientation Inactive Problems: Aggression Pt Strengths/Limitations Ability for [place]: Poor Cognitive Functioning/Ability: Poor Communication Skills/Ability: Poor Financial Resources: Good Insight/Judgement: Poor Intellectual Ability: Fair Physical Health: Poor Social Skills: Fair Stability in Family: Good Stability in School/Work: Good Verbal Skills: Poor Discharge Criteria Discharge Criteria: Able to meet health needs, Adequate arrangements @DC, Verbal commit med comply, Improved behavior Other Discharge Comments: Will consider psychiatry upon d/c. Preliminary Discharge Plan Preliminary DC Plan: Current Living Arrange. Special Precautions Special Precautions: Agitation/Assault Fall Risk: High Other Precautions (specify): Pt was walking a few weeks ago. Initial D/C Plan Pt plan is to return to [facility] once stable. Identified Discharge Needs: Pt may need psychiatry upon discharge. Currently Utilized Resources Currently Utilized Resources/P: PCP-Dr. Juarez /DPOA-Diana Stover Son-Akhil Stover Facility-[facility] Referrals Community Resources: Will consider psychiatry Identified Problems/Hx/Goals Objectives/Short-Term Goals Short Term Goals: Control abnormal behavior, Dec. Aggression, Improved Social Skills, Medication Stabilization, Monitor Med Effects, Prevent Deterioration Short Term Goals in Patient's: Decrease agitation, aggression, and restlessness so that pt can return to [facility]. Interventions/Frequency Staff Interventions/Frequency&: Psychiatry to assess pt three times per week for medication management. Nursing to assess behaivors, monitor medications, and complete 15 minute checks daily. Social work to see pt at least two times weekly to aid in return to placement. Recreational therapy to encourage pt to participate in group activities daily. 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 Education: Pt completed high school and attended one year of college. 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 Community Follow-up PCP Community Provider/Family Inpu: /DPOA, Diana and son, Akhil provide input into pt history and is available for further information as needed. Treatment Plan Explained Patient/Dispatcher Refinery had this treatment plan explained to him/her as indicated by the signature below and has been given the opportunity to ask questions and make suggestions: Date: Patient/Dispatcher Refinery Signature: Status Update Update Pt eating 100% of his meals and sleeping between 5 to 6.5 hours at night. Pt continues to be busy and wanders around at times. Pt is pleasantly confused. Pt sometimes shows affection toward others, but is easily redirected if too intrusive. Pt is med compliant. He continues to attend groups and needs prompting throughout. He does like to exercise during group sessions and likes listening to music. Pt is scheduled for d/c early next week to [facility]. YARELI FERNANDEZ Jan 03, 2021 16:13
[2021-01-03 16:19] VITALS: BP 116/73
[2021-01-03] MEDS: DONEPEZIL HCL 10 MG TABLET PO SCH (20:28)
[2021-01-03] MEDS: LATANOPROST 0.005% OPHTH SOLUTION 2.5ML BOTTLE. OU SCH (20:29)
[2021-01-03] MEDS: OLANZapine 5 MG TABLET PO SCH (20:29)
--- NOTE | 2021-01-03 22:21 | PDOC ---
Exam Note: Valente Note: Please also refer to the separate dictated note~for this date of service dictated separately.~Patient seen individually. Discussed the patient with Nursing staff reviewed the chart.~Reviewed interim history and current functioning. Reviewed vital signs,~Labs/ Radiology~and current medications noted below. Continue current treatment with the changes noted in the dictated addendum note Assessment: Vital Signs/I&O: Vital Signs Date Time Temp Pulse Resp B/P (MAP) Pulse Ox O2 Delivery O2 Flow Rate FiO2 01/03/21 16:19 97.8 72 20 116/73 (87) 93 Room Air I & O 01/02/21 01/02/21 01/03/21 15:00 23:00 07:00 Intake Total 680 ml 600 ml Balance 680 ml 600 ml Current Medications: Meds: Current Medications Medications (Trade) Dose Ordered Sig/Farideh Route PRN Reason Start Time Stop Time Status Last Admin Dose Admin Acetaminophen (Tylenol) 650 mg PRN Q6HRS PRN PO MILD PAIN / TEMP > 100.3'F 12/18/20 13:15 Multi-Ingredient Ointment (Analgesic [place]) 1 herminio PRN QID PRN TP MUSCLE PAIN 12/18/20 13:15 Al Hydroxide/Mg Hydroxide (Mylanta Plus Xs) 15 ml PRN AFTMEALHC PRN PO DYSPEPSIA 12/18/20 13:15 Magnesium Hydroxide (Milk Of Magnesia) 2,400 mg PRN QHS PRN PO CONSTIPATION 12/18/20 13:15 Bromocriptine Mesylate (Parlodel) 2.5 mg QMWF@0900 PO 12/19/20 09:00 01/02/21 10:09 Bromocriptine Mesylate (Parlodel) 2.5 mg QMWF PO 12/19/20 16:00 12/18/20 13:25 DC Vitamin D (Vitamin D3) 4,000 unit DAILY PO 12/19/20 09:00 01/03/21 08:26 Donepezil HCl (Aricept) 10 mg QHS PO 12/18/20 21:00 01/03/21 20:28 Lactobacillus Rhamnosus (Culturelle) 1 cap BID PO 12/18/20 21:00 01/03/21 20:29 Latanoprost (Xalatan) 1 drop QHS OU 12/18/20 21:00 01/03/21 20:29 Memantine (Namenda) 10 mg BID PO 12/19/20 09:00 01/03/21 20:29 Olanzapine (ZyPREXA) 5 mg PRN Q4HRS PRN PO ANXIETY / AGITATION 12/18/20 13:00 12/19/20 20:59 DC 12/18/20 21:48 Olanzapine (ZyPREXA) 5 mg QHS PO 12/18/20 21:00 12/28/20 07:25 DC 12/27/20 20:56 Quetiapine Fumarate (SEROquel) 25 mg PRN Q6HRS PRN PO ANXIETY / AGITATION 12/18/20 13:00 12/18/20 21:48 Sertraline HCl (Zoloft) 25 mg DAILY PO 12/19/20 09:00 12/29/20 18:17 DC 12/29/20 08:28 Non-Formulary Medication (Fluticasone Propionate (Flovent 50MCG Diskus)) 50 mcg BID NS 12/18/20 21:00 UNV Naproxen (Naprosyn) 500 mg BID PO 12/18/20 21:00 01/03/21 20:29 Budesonide (Pulmicort) 0.5 mg RTBID NEB 12/18/20 20:00 UNV Fluticasone Propionate (Flonase) 2 spray BID NS 12/18/20 21:00 01/03/21 20:29 Trazodone HCl (Desyrel) 50 mg PRN QHS PRN PO INSOMNIA, MAY REPEAT X1 12/18/20 23:15 01/02/21 20:32 Quetiapine Fumarate (SEROquel) 50 mg 1X PRN PRN PO ANXIETY / AGITATION 12/18/20 23:15 Cancel Olanzapine (ZyPREXA ZYDIS) 5 mg PRN Q4HRS PRN PO PSYCHOSIS 12/19/20 21:00 12/28/20 16:17 DC 12/28/20 10:13 Olanzapine (ZyPREXA) 10 mg QHS PO 12/28/20 21:00 01/03/21 20:29 Olanzapine (ZyPREXA ZYDIS) 2.5 mg PRN Q2HR PRN PO PSYCHOSIS 12/28/20 16:15 12/30/20 13:05 Sertraline HCl (Zoloft) 50 mg DAILY PO 12/30/20 09:00 01/03/21 08:26 Divalproex Sodium (Depakote Sprinkles) 125 mg BID@0900,1700 PO 12/30/20 17:00 01/03/21 16:50 I have reviewed the current psychotropics carefully including drug interactions. Risk benefit ratio favors no change other than as noted in my dictated progress note. Diagnosis: Problems: (1) Impulse control disorder, unspecified (2) Anxiety disorder, unspecified (3) Dementia, vascular, with depression (4) Dementia, vascular, with delusions (5) Dementia in Alzheimer's disease with depression (6) Dementia in Alzheimer's disease with delusions (7) Dementia of the Alzheimer's type with early onset with behavioral disturbance (8) Major neurocognitive disorder HELIO RÍOS MD Jan 03, 2021 22:21
[2021-01-04 05:55] VITALS: BP 142/86
--- NOTE | 2021-01-04 07:02 | PDOC ---
Exam Note: Valente Note: This note is a late entry for 01/03/2021 covers elements not covered in my initial note. Subjective: The patient was reviewed in the morning of 01/03/2021 for a treatment team meeting with Christi Antonio, Altagracia Escalera and Elodia (social work coordinator), Sheree, activity therapy and Nishi TORRES, discussed and reviewed the chart. He has been confused. We reviewed his past history. 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 Appetite is fair. Sleeping 5 hours average. He is busy cleaning the board, somewhat intrusive. Review of Systems: No CV, , pulmonary, eye system symptoms on review. Reliability poor. Mental Status Exam: The patient is oriented to himself. Insight and judgment, recent and remote memory, attention and concentration, fund of knowledge is poor consistent with his diagnoses. No suicidal or homicidal ideation. Laboratory Data: Reviewed. Impression: Major neurocognitive disorder Alzheimer vascular with delusion, depression, behavioral disturbance. Anxiety disorder unspecified. Impulse control disorder unspecified. Plan: Continue rest of the psychotropics unchanged. Assessment: Vital Signs/I&O: Vital Signs Date Time Temp Pulse Resp B/P (MAP) Pulse Ox O2 Delivery O2 Flow Rate FiO2 01/04/21 05:55 97.5 61 18 142/86 (104) 96 01/03/21 16:19 Room Air I & O 01/03/21 01/03/21 01/04/21 15:00 23:00 07:00 Intake Total 580 ml 600 ml Balance 580 ml 600 ml Current Medications: Meds: Current Medications Medications (Trade) Dose Ordered Sig/Farideh Route PRN Reason Start Time Stop Time Status Last Admin Dose Admin Acetaminophen (Tylenol) 650 mg PRN Q6HRS PRN PO MILD PAIN / TEMP > 100.3'F 12/18/20 13:15 Multi-Ingredient Ointment (Analgesic [place]) 1 herminio PRN QID PRN TP MUSCLE PAIN 12/18/20 13:15 Al Hydroxide/Mg Hydroxide (Mylanta Plus Xs) 15 ml PRN AFTMEALHC PRN PO DYSPEPSIA 12/18/20 13:15 Magnesium Hydroxide (Milk Of Magnesia) 2,400 mg PRN QHS PRN PO CONSTIPATION 12/18/20 13:15 Bromocriptine Mesylate (Parlodel) 2.5 mg QMWF@0900 PO 12/19/20 09:00 01/02/21 10:09 Bromocriptine Mesylate (Parlodel) 2.5 mg QMWF PO 12/19/20 16:00 12/18/20 13:25 DC Vitamin D (Vitamin D3) 4,000 unit DAILY PO 12/19/20 09:00 01/03/21 08:26 Donepezil HCl (Aricept) 10 mg QHS PO 12/18/20 21:00 01/03/21 20:28 Lactobacillus Rhamnosus (Culturelle) 1 cap BID PO 12/18/20 21:00 01/03/21 20:29 Latanoprost (Xalatan) 1 drop QHS OU 12/18/20 21:00 01/03/21 20:29 Memantine (Namenda) 10 mg BID PO 12/19/20 09:00 01/03/21 20:29 Olanzapine (ZyPREXA) 5 mg PRN Q4HRS PRN PO ANXIETY / AGITATION 12/18/20 13:00 12/19/20 20:59 DC 12/18/20 21:48 Olanzapine (ZyPREXA) 5 mg QHS PO 12/18/20 21:00 12/28/20 07:25 DC 12/27/20 20:56 Quetiapine Fumarate (SEROquel) 25 mg PRN Q6HRS PRN PO ANXIETY / AGITATION 12/18/20 13:00 12/18/20 21:48 Sertraline HCl (Zoloft) 25 mg DAILY PO 12/19/20 09:00 12/29/20 18:17 DC 12/29/20 08:28 Non-Formulary Medication (Fluticasone Propionate (Flovent 50MCG Diskus)) 50 mcg BID NS 12/18/20 21:00 UNV Naproxen (Naprosyn) 500 mg BID PO 12/18/20 21:00 01/03/21 20:29 Budesonide (Pulmicort) 0.5 mg RTBID NEB 12/18/20 20:00 UNV Fluticasone Propionate (Flonase) 2 spray BID NS 12/18/20 21:00 01/03/21 20:29 Trazodone HCl (Desyrel) 50 mg PRN QHS PRN PO INSOMNIA, MAY REPEAT X1 12/18/20 23:15 01/02/21 20:32 Quetiapine Fumarate (SEROquel) 50 mg 1X PRN PRN PO ANXIETY / AGITATION 12/18/20 23:15 Cancel Olanzapine (ZyPREXA ZYDIS) 5 mg PRN Q4HRS PRN PO PSYCHOSIS 12/19/20 21:00 12/28/20 16:17 DC 12/28/20 10:13 Olanzapine (ZyPREXA) 10 mg QHS PO 12/28/20 21:00 01/03/21 20:29 Olanzapine (ZyPREXA ZYDIS) 2.5 mg PRN Q2HR PRN PO PSYCHOSIS 12/28/20 16:15 12/30/20 13:05 Sertraline HCl (Zoloft) 50 mg DAILY PO 12/30/20 09:00 01/03/21 08:26 Divalproex Sodium (Depakote Sprinkles) 125 mg BID@0900,1700 PO 12/30/20 17:00 01/03/21 16:50 I have reviewed the current psychotropics carefully including drug interactions. Risk benefit ratio favors no change other than as noted in my dictated progress note. Diagnosis: Problems: (1) Impulse control disorder, unspecified (2) Anxiety disorder, unspecified (3) Dementia, vascular, with depression (4) Dementia, vascular, with delusions (5) Dementia in Alzheimer's disease with depression (6) Dementia in Alzheimer's disease with delusions (7) Dementia of the Alzheimer's type with early onset with behavioral disturbance (8) Major neurocognitive disorder HELIO RÍOS MD Jan 04, 2021 07:02
[2021-01-04] MEDS: DIVALPROEX 125 MG CAP.SPRINK PO SCH ×2 (07:45→17:17)
[2021-01-04] MEDS: LACTOBACILLUS RHAMNOSUS GG 1 CAPSULE. PO SCH ×2 (07:45→20:23)
[2021-01-04] MEDS: MEMANTINE 10 MG TABLET. PO SCH ×2 (07:46→20:24)
[2021-01-04] MEDS: SERTRALINE 50 MG TABLET. PO SCH (07:47)
[2021-01-04] MEDS: CHOLECALCIFEROL (VITAMIN D3) 1,000 UNIT TABLET PO SCH (07:47)
[2021-01-04] MEDS: NAPROXEN 500 MG TABLET PO SCH ×2 (07:47→20:23)
[2021-01-04] MEDS: BROMOCRIPTINE MESYLATE 2.5 MG PO SCH (07:48)
[2021-01-04] MEDS: FLUTICASONE 50MCG/NASAL SPRAY 16GM BOTTLE. NS SCH ×2 (07:48→20:22)
[2021-01-04 16:20] VITALS: BP 140/72
[2021-01-04] MEDS: OLANZapine 5 MG TABLET PO SCH (20:23)
[2021-01-04] MEDS: DONEPEZIL HCL 10 MG TABLET PO SCH (20:24)
[2021-01-04] MEDS: LATANOPROST 0.005% OPHTH SOLUTION 2.5ML BOTTLE. OU SCH (20:24)
--- NOTE | 2021-01-04 22:18 | PDOC ---
Exam Note: Valente Note: Please also refer to the separate dictated note~for this date of service dictated separately.~Patient seen individually. Discussed the patient with Nursing staff reviewed the chart.~Reviewed interim history and current functioning. Reviewed vital signs,~Labs/ Radiology~and current medications noted below. Continue current treatment with the changes noted in the dictated addendum note Assessment: Vital Signs/I&O: Vital Signs Date Time Temp Pulse Resp B/P (MAP) Pulse Ox O2 Delivery O2 Flow Rate FiO2 01/04/21 16:20 97.8 90 20 140/72 (94) 98 Room Air I & O 01/03/21 01/03/21 01/04/21 15:00 23:00 07:00 Intake Total 580 ml 600 ml Balance 580 ml 600 ml Current Medications: Meds: Current Medications Medications (Trade) Dose Ordered Sig/Farideh Route PRN Reason Start Time Stop Time Status Last Admin Dose Admin Acetaminophen (Tylenol) 650 mg PRN Q6HRS PRN PO MILD PAIN / TEMP > 100.3'F 12/18/20 13:15 Multi-Ingredient Ointment (Analgesic [place]) 1 herminio PRN QID PRN TP MUSCLE PAIN 12/18/20 13:15 Al Hydroxide/Mg Hydroxide (Mylanta Plus Xs) 15 ml PRN AFTMEALHC PRN PO DYSPEPSIA 12/18/20 13:15 Magnesium Hydroxide (Milk Of Magnesia) 2,400 mg PRN QHS PRN PO CONSTIPATION 12/18/20 13:15 Bromocriptine Mesylate (Parlodel) 2.5 mg QMWF@0900 PO 12/19/20 09:00 01/04/21 07:48 Bromocriptine Mesylate (Parlodel) 2.5 mg QMWF PO 12/19/20 16:00 12/18/20 13:25 DC Vitamin D (Vitamin D3) 4,000 unit DAILY PO 12/19/20 09:00 01/04/21 07:47 Donepezil HCl (Aricept) 10 mg QHS PO 12/18/20 21:00 01/04/21 20:24 Lactobacillus Rhamnosus (Culturelle) 1 cap BID PO 12/18/20 21:00 01/04/21 20:23 Latanoprost (Xalatan) 1 drop QHS OU 12/18/20 21:00 01/04/21 20:24 Memantine (Namenda) 10 mg BID PO 12/19/20 09:00 01/04/21 20:24 Olanzapine (ZyPREXA) 5 mg PRN Q4HRS PRN PO ANXIETY / AGITATION 12/18/20 13:00 12/19/20 20:59 DC 12/18/20 21:48 Olanzapine (ZyPREXA) 5 mg QHS PO 12/18/20 21:00 12/28/20 07:25 DC 12/27/20 20:56 Quetiapine Fumarate (SEROquel) 25 mg PRN Q6HRS PRN PO ANXIETY / AGITATION 12/18/20 13:00 12/18/20 21:48 Sertraline HCl (Zoloft) 25 mg DAILY PO 12/19/20 09:00 12/29/20 18:17 DC 12/29/20 08:28 Non-Formulary Medication (Fluticasone Propionate (Flovent 50MCG Diskus)) 50 mcg BID NS 12/18/20 21:00 UNV Naproxen (Naprosyn) 500 mg BID PO 12/18/20 21:00 01/04/21 20:23 Budesonide (Pulmicort) 0.5 mg RTBID NEB 12/18/20 20:00 UNV Fluticasone Propionate (Flonase) 2 spray BID NS 12/18/20 21:00 01/04/21 20:22 Trazodone HCl (Desyrel) 50 mg PRN QHS PRN PO INSOMNIA, MAY REPEAT X1 12/18/20 23:15 01/02/21 20:32 Quetiapine Fumarate (SEROquel) 50 mg 1X PRN PRN PO ANXIETY / AGITATION 12/18/20 23:15 Cancel Olanzapine (ZyPREXA ZYDIS) 5 mg PRN Q4HRS PRN PO PSYCHOSIS 12/19/20 21:00 12/28/20 16:17 DC 12/28/20 10:13 Olanzapine (ZyPREXA) 10 mg QHS PO 12/28/20 21:00 01/04/21 20:23 Olanzapine (ZyPREXA ZYDIS) 2.5 mg PRN Q2HR PRN PO PSYCHOSIS 12/28/20 16:15 12/30/20 13:05 Sertraline HCl (Zoloft) 50 mg DAILY PO 12/30/20 09:00 01/04/21 07:47 Divalproex Sodium (Depakote Sprinkles) 125 mg BID@0900,1700 PO 12/30/20 17:00 01/04/21 17:17 I have reviewed the current psychotropics carefully including drug interactions. Risk benefit ratio favors no change other than as noted in my dictated progress note. 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
[2021-01-05 06:51] VITALS: BP 159/70
--- NOTE | 2021-01-05 07:42 | PDOC ---
Exam Note: Valente Note: This note is a late entry for 01/04/2021 covers elements not covered in my initial note. Subjective: The patient was seen individually in the evening of 01/04/2021 with iNshi TORERS, discussed and reviewed the chart. He slept 6-3/4 hours previous night. Overall the patient remains confused. She has done reasonably well. Review of Systems: No CV, , pulmonary, eye system symptoms on review. Reliability poor. Mental Status Exam: The patient is oriented to himself. Insight and judgment, recent and remote memory, attention and concentration, fund of knowledge is poor consistent with his diagnoses. No suicidal or homicidal ideation. Laboratory Data: Reviewed. Impression: Major neurocognitive disorder Alzheimer vascular with delusion, depression, behavioral disturbance. Anxiety disorder unspecified. Impulse control disorder unspecified. Plan: Continue rest of the psychotropics unchanged. Assessment: Vital Signs/I&O: Vital Signs Date Time Temp Pulse Resp B/P (MAP) Pulse Ox O2 Delivery O2 Flow Rate FiO2 01/05/21 06:51 97.0 71 16 159/70 (99) 98 Room Air I & O 01/04/21 01/04/21 01/05/21 15:00 23:00 07:00 Intake Total 720 ml 360 ml Balance 720 ml 360 ml Current Medications: Meds: Current Medications Medications (Trade) Dose Ordered Sig/Farideh Route PRN Reason Start Time Stop Time Status Last Admin Dose Admin Acetaminophen (Tylenol) 650 mg PRN Q6HRS PRN PO MILD PAIN / TEMP > 100.3'F 12/18/20 13:15 Multi-Ingredient Ointment (Analgesic [place]) 1 herminio PRN QID PRN TP MUSCLE PAIN 12/18/20 13:15 Al Hydroxide/Mg Hydroxide (Mylanta Plus Xs) 15 ml PRN AFTMEALHC PRN PO DYSPEPSIA 12/18/20 13:15 Magnesium Hydroxide (Milk Of Magnesia) 2,400 mg PRN QHS PRN PO CONSTIPATION 12/18/20 13:15 Bromocriptine Mesylate (Parlodel) 2.5 mg QMWF@0900 PO 12/19/20 09:00 01/04/21 07:48 Bromocriptine Mesylate (Parlodel) 2.5 mg QMWF PO 12/19/20 16:00 12/18/20 13:25 DC Vitamin D (Vitamin D3) 4,000 unit DAILY PO 12/19/20 09:00 01/04/21 07:47 Donepezil HCl (Aricept) 10 mg QHS PO 12/18/20 21:00 01/04/21 20:24 Lactobacillus Rhamnosus (Culturelle) 1 cap BID PO 12/18/20 21:00 01/04/21 20:23 Latanoprost (Xalatan) 1 drop QHS OU 12/18/20 21:00 01/04/21 20:24 Memantine (Namenda) 10 mg BID PO 12/19/20 09:00 01/04/21 20:24 Olanzapine (ZyPREXA) 5 mg PRN Q4HRS PRN PO ANXIETY / AGITATION 12/18/20 13:00 12/19/20 20:59 DC 12/18/20 21:48 Olanzapine (ZyPREXA) 5 mg QHS PO 12/18/20 21:00 12/28/20 07:25 DC 12/27/20 20:56 Quetiapine Fumarate (SEROquel) 25 mg PRN Q6HRS PRN PO ANXIETY / AGITATION 12/18/20 13:00 12/18/20 21:48 Sertraline HCl (Zoloft) 25 mg DAILY PO 12/19/20 09:00 12/29/20 18:17 DC 12/29/20 08:28 Non-Formulary Medication (Fluticasone Propionate (Flovent 50MCG Diskus)) 50 mcg BID NS 12/18/20 21:00 UNV Naproxen (Naprosyn) 500 mg BID PO 12/18/20 21:00 01/04/21 20:23 Budesonide (Pulmicort) 0.5 mg RTBID NEB 12/18/20 20:00 UNV Fluticasone Propionate (Flonase) 2 spray BID NS 12/18/20 21:00 01/04/21 20:22 Trazodone HCl (Desyrel) 50 mg PRN QHS PRN PO INSOMNIA, MAY REPEAT X1 12/18/20 23:15 01/02/21 20:32 Quetiapine Fumarate (SEROquel) 50 mg 1X PRN PRN PO ANXIETY / AGITATION 12/18/20 23:15 Cancel Olanzapine (ZyPREXA ZYDIS) 5 mg PRN Q4HRS PRN PO PSYCHOSIS 12/19/20 21:00 12/28/20 16:17 DC 12/28/20 10:13 Olanzapine (ZyPREXA) 10 mg QHS PO 12/28/20 21:00 01/04/21 20:23 Olanzapine (ZyPREXA ZYDIS) 2.5 mg PRN Q2HR PRN PO PSYCHOSIS 12/28/20 16:15 12/30/20 13:05 Sertraline HCl (Zoloft) 50 mg DAILY PO 12/30/20 09:00 01/04/21 07:47 Divalproex Sodium (Depakote Sprinkles) 125 mg BID@0900,1700 PO 12/30/20 17:00 01/04/21 17:17 I have reviewed the current psychotropics carefully including drug interactions. Risk benefit ratio favors no change other than as noted in my dictated progress note. Diagnosis: Problems: (1) Impulse control disorder, unspecified (2) Anxiety disorder, unspecified (3) Dementia, vascular, with depression (4) Dementia, vascular, with delusions (5) Dementia in Alzheimer's disease with depression (6) Dementia in Alzheimer's disease with delusions (7) Dementia of the Alzheimer's type with early onset with behavioral disturbance (8) Major neurocognitive disorder HELIO RÍOS MD Jan 05, 2021 07:42
[2021-01-05] MEDS: LACTOBACILLUS RHAMNOSUS GG 1 CAPSULE. PO SCH ×2 (08:12→20:06)
[2021-01-05] MEDS: MEMANTINE 10 MG TABLET. PO SCH ×2 (08:12→20:05)
[2021-01-05] MEDS: NAPROXEN 500 MG TABLET PO SCH ×2 (08:12→20:06)
[2021-01-05] MEDS: DIVALPROEX 125 MG CAP.SPRINK PO SCH ×2 (08:12→17:10)
[2021-01-05] MEDS: CHOLECALCIFEROL (VITAMIN D3) 1,000 UNIT TABLET PO SCH (08:12)
[2021-01-05] MEDS: SERTRALINE 50 MG TABLET. PO SCH (08:12)
[2021-01-05] MEDS: FLUTICASONE 50MCG/NASAL SPRAY 16GM BOTTLE. NS SCH ×2 (08:12→20:10)
[2021-01-05 16:22] VITALS: BP 117/62
[2021-01-05] MEDS: DONEPEZIL HCL 10 MG TABLET PO SCH (20:05)
[2021-01-05] MEDS: OLANZapine 5 MG TABLET PO SCH (20:06)
[2021-01-05] MEDS: LATANOPROST 0.005% OPHTH SOLUTION 2.5ML BOTTLE. OU SCH (20:10)
--- NOTE | 2021-01-05 22:05 | PDOC ---
Exam Note: Valente Note: Please also refer to the separate dictated note~for this date of service dictated separately.~Patient seen individually. Discussed the patient with Nursing staff reviewed the chart.~Reviewed interim history and current functioning. Reviewed vital signs,~Labs/ Radiology~and current medications noted below. Continue current treatment with the changes noted in the dictated addendum note Assessment: Vital Signs/I&O: Vital Signs Date Time Temp Pulse Resp B/P (MAP) Pulse Ox O2 Delivery O2 Flow Rate FiO2 01/05/21 16:22 98.4 84 19 117/62 (80) 94 Room Air I & O 01/04/21 01/04/21 01/05/21 15:00 23:00 07:00 Intake Total 720 ml 360 ml Balance 720 ml 360 ml Current Medications: Meds: Current Medications Medications (Trade) Dose Ordered Sig/Farideh Route PRN Reason Start Time Stop Time Status Last Admin Dose Admin Acetaminophen (Tylenol) 650 mg PRN Q6HRS PRN PO MILD PAIN / TEMP > 100.3'F 12/18/20 13:15 Multi-Ingredient Ointment (Analgesic [place]) 1 herminio PRN QID PRN TP MUSCLE PAIN 12/18/20 13:15 Al Hydroxide/Mg Hydroxide (Mylanta Plus Xs) 15 ml PRN AFTMEALHC PRN PO DYSPEPSIA 12/18/20 13:15 Magnesium Hydroxide (Milk Of Magnesia) 2,400 mg PRN QHS PRN PO CONSTIPATION 12/18/20 13:15 Bromocriptine Mesylate (Parlodel) 2.5 mg QMWF@0900 PO 12/19/20 09:00 01/04/21 07:48 Bromocriptine Mesylate (Parlodel) 2.5 mg QMWF PO 12/19/20 16:00 12/18/20 13:25 DC Vitamin D (Vitamin D3) 4,000 unit DAILY PO 12/19/20 09:00 01/05/21 08:12 Donepezil HCl (Aricept) 10 mg QHS PO 12/18/20 21:00 01/05/21 20:05 Lactobacillus Rhamnosus (Culturelle) 1 cap BID PO 12/18/20 21:00 01/05/21 20:06 Latanoprost (Xalatan) 1 drop QHS OU 12/18/20 21:00 01/05/21 20:10 Memantine (Namenda) 10 mg BID PO 12/19/20 09:00 01/05/21 20:05 Olanzapine (ZyPREXA) 5 mg PRN Q4HRS PRN PO ANXIETY / AGITATION 12/18/20 13:00 12/19/20 20:59 DC 12/18/20 21:48 Olanzapine (ZyPREXA) 5 mg QHS PO 12/18/20 21:00 12/28/20 07:25 DC 12/27/20 20:56 Quetiapine Fumarate (SEROquel) 25 mg PRN Q6HRS PRN PO ANXIETY / AGITATION 12/18/20 13:00 12/18/20 21:48 Sertraline HCl (Zoloft) 25 mg DAILY PO 12/19/20 09:00 12/29/20 18:17 DC 12/29/20 08:28 Non-Formulary Medication (Fluticasone Propionate (Flovent 50MCG Diskus)) 50 mcg BID NS 12/18/20 21:00 UNV Naproxen (Naprosyn) 500 mg BID PO 12/18/20 21:00 01/05/21 20:06 Budesonide (Pulmicort) 0.5 mg RTBID NEB 12/18/20 20:00 UNV Fluticasone Propionate (Flonase) 2 spray BID NS 12/18/20 21:00 01/05/21 08:12 Trazodone HCl (Desyrel) 50 mg PRN QHS PRN PO INSOMNIA, MAY REPEAT X1 12/18/20 23:15 01/02/21 20:32 Quetiapine Fumarate (SEROquel) 50 mg 1X PRN PRN PO ANXIETY / AGITATION 12/18/20 23:15 Cancel Olanzapine (ZyPREXA ZYDIS) 5 mg PRN Q4HRS PRN PO PSYCHOSIS 12/19/20 21:00 12/28/20 16:17 DC 12/28/20 10:13 Olanzapine (ZyPREXA) 10 mg QHS PO 12/28/20 21:00 01/05/21 20:06 Olanzapine (ZyPREXA ZYDIS) 2.5 mg PRN Q2HR PRN PO PSYCHOSIS 12/28/20 16:15 12/30/20 13:05 Sertraline HCl (Zoloft) 50 mg DAILY PO 12/30/20 09:00 01/05/21 08:12 Divalproex Sodium (Depakote Sprinkles) 125 mg BID@0900,1700 PO 12/30/20 17:00 01/05/21 17:10 I have reviewed the current psychotropics carefully including drug interactions. Risk benefit ratio favors no change other than as noted in my dictated progress note. 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
[2021-01-06] MEDS: DIVALPROEX 125 MG CAP.SPRINK PO SCH ×2 (07:48→16:13)
[2021-01-06] MEDS: NAPROXEN 500 MG TABLET PO SCH ×2 (07:49→19:35)
[2021-01-06] MEDS: LACTOBACILLUS RHAMNOSUS GG 1 CAPSULE. PO SCH ×2 (07:49→19:35)
[2021-01-06] MEDS: MEMANTINE 10 MG TABLET. PO SCH ×2 (07:49→19:35)
[2021-01-06] MEDS: SERTRALINE 50 MG TABLET. PO SCH (07:49)
[2021-01-06] MEDS: CHOLECALCIFEROL (VITAMIN D3) 1,000 UNIT TABLET PO SCH (07:49)
--- NOTE | 2021-01-06 07:52 | PDOC ---
Exam Note: Valente Note: This note is a late entry for 01/05/2021 covers elements not covered in my initial note. Subjective: The patient was seen individually in the evening of 01/05/2021 with Brett TORRES, discussed and reviewed the chart. He slept 6-1/2 hours previous night. The patient has been taking his medications. He remains fidgety. As I met with him in the evening he was in the dayroom trying to push a door convinced that he had to fix it and he was pushing the door into the wall, oblivious of what he is doing, exerting great pressure. He did redirect as I intervened. Review of Systems: No CV, , pulmonary, eye system symptoms on review. Reliability poor. Mental Status Exam: The patient is oriented to himself. Insight and judgment, recent and remote memory, attention and concentration, fund of knowledge is poor consistent with his diagnoses. No suicidal or homicidal ideation. Laboratory Data: Reviewed. Impression: Major neurocognitive disorder Alzheimer vascular with delusion, depression, behavioral disturbance. Anxiety disorder unspecified. Impulse control disorder unspecified. Plan: No change from initial note. We may have to add scheduled Seroquel for some of the above but he does redirect and I will try and avoid it. Assessment: Vital Signs/I&O: Vital Signs Date Time Temp Pulse Resp B/P (MAP) Pulse Ox O2 Delivery O2 Flow Rate FiO2 01/06/21 06:53 97.2 57 17 95 01/05/21 16:22 117/62 (80) Room Air I & O 01/05/21 01/05/21 01/06/21 15:00 23:00 07:00 Intake Total 840 ml 480 ml Balance 840 ml 480 ml Current Medications: Meds: Current Medications Medications (Trade) Dose Ordered Sig/Farideh Route PRN Reason Start Time Stop Time Status Last Admin Dose Admin Acetaminophen (Tylenol) 650 mg PRN Q6HRS PRN PO MILD PAIN / TEMP > 100.3'F 12/18/20 13:15 Multi-Ingredient Ointment (Analgesic [place]) 1 herminio PRN QID PRN TP MUSCLE PAIN 12/18/20 13:15 Al Hydroxide/Mg Hydroxide (Mylanta Plus Xs) 15 ml PRN AFTMEALHC PRN PO DYSPEPSIA 12/18/20 13:15 Magnesium Hydroxide (Milk Of Magnesia) 2,400 mg PRN QHS PRN PO CONSTIPATION 12/18/20 13:15 Bromocriptine Mesylate (Parlodel) 2.5 mg QMWF@0900 PO 12/19/20 09:00 01/04/21 07:48 Bromocriptine Mesylate (Parlodel) 2.5 mg QMWF PO 12/19/20 16:00 12/18/20 13:25 DC Vitamin D (Vitamin D3) 4,000 unit DAILY PO 12/19/20 09:00 01/06/21 07:49 Donepezil HCl (Aricept) 10 mg QHS PO 12/18/20 21:00 01/05/21 20:05 Lactobacillus Rhamnosus (Culturelle) 1 cap BID PO 12/18/20 21:00 01/06/21 07:49 Latanoprost (Xalatan) 1 drop QHS OU 12/18/20 21:00 01/05/21 20:10 Memantine (Namenda) 10 mg BID PO 12/19/20 09:00 01/06/21 07:49 Olanzapine (ZyPREXA) 5 mg PRN Q4HRS PRN PO ANXIETY / AGITATION 12/18/20 13:00 12/19/20 20:59 DC 12/18/20 21:48 Olanzapine (ZyPREXA) 5 mg QHS PO 12/18/20 21:00 12/28/20 07:25 DC 12/27/20 20:56 Quetiapine Fumarate (SEROquel) 25 mg PRN Q6HRS PRN PO ANXIETY / AGITATION 12/18/20 13:00 12/18/20 21:48 Sertraline HCl (Zoloft) 25 mg DAILY PO 12/19/20 09:00 12/29/20 18:17 DC 12/29/20 08:28 Non-Formulary Medication (Fluticasone Propionate (Flovent 50MCG Diskus)) 50 mcg BID NS 12/18/20 21:00 UNV Naproxen (Naprosyn) 500 mg BID PO 12/18/20 21:00 01/06/21 07:49 Budesonide (Pulmicort) 0.5 mg RTBID NEB 12/18/20 20:00 UNV Fluticasone Propionate (Flonase) 2 spray BID NS 12/18/20 21:00 01/05/21 08:12 Trazodone HCl (Desyrel) 50 mg PRN QHS PRN PO INSOMNIA, MAY REPEAT X1 12/18/20 23:15 01/02/21 20:32 Quetiapine Fumarate (SEROquel) 50 mg 1X PRN PRN PO ANXIETY / AGITATION 12/18/20 23:15 Cancel Olanzapine (ZyPREXA ZYDIS) 5 mg PRN Q4HRS PRN PO PSYCHOSIS 12/19/20 21:00 12/28/20 16:17 DC 12/28/20 10:13 Olanzapine (ZyPREXA) 10 mg QHS PO 12/28/20 21:00 01/05/21 20:06 Olanzapine (ZyPREXA ZYDIS) 2.5 mg PRN Q2HR PRN PO PSYCHOSIS 12/28/20 16:15 12/30/20 13:05 Sertraline HCl (Zoloft) 50 mg DAILY PO 12/30/20 09:00 01/06/21 07:49 Divalproex Sodium (Depakote Sprinkles) 125 mg BID@0900,1700 PO 12/30/20 17:00 01/06/21 07:48 I have reviewed the current psychotropics carefully including drug interactions. Risk benefit ratio favors no change other than as noted in my dictated progress note. Diagnosis: Problems: (1) Impulse control disorder, unspecified (2) Anxiety disorder, unspecified (3) Dementia, vascular, with depression (4) Dementia, vascular, with delusions (5) Dementia in Alzheimer's disease with depression (6) Dementia in Alzheimer's disease with delusions (7) Dementia of the Alzheimer's type with early onset with behavioral disturbance (8) Major neurocognitive disorder HELIO RÍOS MD Jan 06, 2021 07:52
[2021-01-06] MEDS: FLUTICASONE 50MCG/NASAL SPRAY 16GM BOTTLE. NS SCH ×2 (09:00→19:36)
[2021-01-06 16:13] VITALS: BP 98/60
[2021-01-06] MEDS: DONEPEZIL HCL 10 MG TABLET PO SCH (19:35)
[2021-01-06] MEDS: OLANZapine 5 MG TABLET PO SCH (19:35)
[2021-01-06] MEDS: LATANOPROST 0.005% OPHTH SOLUTION 2.5ML BOTTLE. OU SCH (19:36)
--- NOTE | 2021-01-06 22:11 | PDOC ---
Exam Note: Valente Note: Please also refer to the separate dictated note~for this date of service dictated separately.~Patient seen individually. Discussed the patient with Nursing staff reviewed the chart.~Reviewed interim history and current functioning. Reviewed vital signs,~Labs/ Radiology~and current medications noted below. Continue current treatment with the changes noted in the dictated addendum note Assessment: Vital Signs/I&O: Vital Signs Date Time Temp Pulse Resp B/P (MAP) Pulse Ox O2 Delivery O2 Flow Rate FiO2 01/06/21 16:13 98.0 72 20 98/60 (73) 98 01/05/21 16:22 Room Air I & O 01/05/21 01/05/21 01/06/21 15:00 23:00 07:00 Intake Total 840 ml 480 ml Balance 840 ml 480 ml Current Medications: Meds: Current Medications Medications (Trade) Dose Ordered Sig/Farideh Route PRN Reason Start Time Stop Time Status Last Admin Dose Admin Acetaminophen (Tylenol) 650 mg PRN Q6HRS PRN PO MILD PAIN / TEMP > 100.3'F 12/18/20 13:15 Multi-Ingredient Ointment (Analgesic [place]) 1 herminio PRN QID PRN TP MUSCLE PAIN 12/18/20 13:15 Al Hydroxide/Mg Hydroxide (Mylanta Plus Xs) 15 ml PRN AFTMEALHC PRN PO DYSPEPSIA 12/18/20 13:15 Magnesium Hydroxide (Milk Of Magnesia) 2,400 mg PRN QHS PRN PO CONSTIPATION 12/18/20 13:15 Bromocriptine Mesylate (Parlodel) 2.5 mg QMWF@0900 PO 12/19/20 09:00 01/04/21 07:48 Bromocriptine Mesylate (Parlodel) 2.5 mg QMWF PO 12/19/20 16:00 12/18/20 13:25 DC Vitamin D (Vitamin D3) 4,000 unit DAILY PO 12/19/20 09:00 01/06/21 07:49 Donepezil HCl (Aricept) 10 mg QHS PO 12/18/20 21:00 01/06/21 19:35 Lactobacillus Rhamnosus (Culturelle) 1 cap BID PO 12/18/20 21:00 01/06/21 19:35 Latanoprost (Xalatan) 1 drop QHS OU 12/18/20 21:00 01/06/21 19:36 Memantine (Namenda) 10 mg BID PO 12/19/20 09:00 01/06/21 19:35 Olanzapine (ZyPREXA) 5 mg PRN Q4HRS PRN PO ANXIETY / AGITATION 12/18/20 13:00 12/19/20 20:59 DC 12/18/20 21:48 Olanzapine (ZyPREXA) 5 mg QHS PO 12/18/20 21:00 12/28/20 07:25 DC 12/27/20 20:56 Quetiapine Fumarate (SEROquel) 25 mg PRN Q6HRS PRN PO ANXIETY / AGITATION 12/18/20 13:00 12/18/20 21:48 Sertraline HCl (Zoloft) 25 mg DAILY PO 12/19/20 09:00 12/29/20 18:17 DC 12/29/20 08:28 Non-Formulary Medication (Fluticasone Propionate (Flovent 50MCG Diskus)) 50 mcg BID NS 12/18/20 21:00 UNV Naproxen (Naprosyn) 500 mg BID PO 12/18/20 21:00 01/06/21 19:35 Budesonide (Pulmicort) 0.5 mg RTBID NEB 12/18/20 20:00 UNV Fluticasone Propionate (Flonase) 2 spray BID NS 12/18/20 21:00 01/06/21 19:36 Trazodone HCl (Desyrel) 50 mg PRN QHS PRN PO INSOMNIA, MAY REPEAT X1 12/18/20 23:15 01/02/21 20:32 Quetiapine Fumarate (SEROquel) 50 mg 1X PRN PRN PO ANXIETY / AGITATION 12/18/20 23:15 Cancel Olanzapine (ZyPREXA ZYDIS) 5 mg PRN Q4HRS PRN PO PSYCHOSIS 12/19/20 21:00 12/28/20 16:17 DC 12/28/20 10:13 Olanzapine (ZyPREXA) 10 mg QHS PO 12/28/20 21:00 01/06/21 19:35 Olanzapine (ZyPREXA ZYDIS) 2.5 mg PRN Q2HR PRN PO PSYCHOSIS 12/28/20 16:15 12/30/20 13:05 Sertraline HCl (Zoloft) 50 mg DAILY PO 12/30/20 09:00 01/06/21 07:49 Divalproex Sodium (Depakote Sprinkles) 125 mg BID@0900,1700 PO 12/30/20 17:00 01/06/21 16:13 I have reviewed the current psychotropics carefully including drug interactions. Risk benefit ratio favors no change other than as noted in my dictated progress note. Diagnosis: Problems: (1) Impulse control disorder, unspecified (2) Anxiety disorder, unspecified (3) Dementia, vascular, with depression (4) Dementia, vascular, with delusions (5) Dementia in Alzheimer's disease with depression (6) Dementia in Alzheimer's disease with delusions (7) Dementia of the Alzheimer's type with early onset with behavioral disturbance (8) Major neurocognitive disorder HELIO RÍOS MD Jan 06, 2021 22:11
[2021-01-07] MEDS ORDERED: ACET325T21 PO (01:14)
[2021-01-07] MEDS ORDERED: DIVA125C2 PO (01:16)
[2021-01-07] MEDS ORDERED: MAG-115 PO (01:17)
[2021-01-07] MEDS ORDERED: MAGN24003 PO (01:19)
[2021-01-07] MEDS ORDERED: METH28OI2 TP (01:20)
[2021-01-07] MEDS ORDERED: TRAZ-120 PO (01:20)
[2021-01-07 06:43] VITALS: BP 138/78
--- NOTE | 2021-01-07 06:47 | PDOC ---
Exam Note: Valente Note: This note is a late entry for 01/06/2021 covers elements not covered in my initial note. Subjective: The patient was seen individually in the evening of 01/06/2021 with Nishi TORRES, discussed and reviewed the chart. He slept 6 hours previous night. The patient remains confused. He was working on some plastic plumbing toys that he has been provided and earlier was working in the puzzles certainly oblivious to what he was doing. Review of Systems: No CV, , pulmonary, eye system symptoms on review. Reliability poor. Mental Status Exam: The patient is oriented to himself. Insight and judgment, recent and remote memory, attention and concentration, fund of knowledge is poor consistent with his diagnoses. No suicidal or homicidal ideation. Laboratory Data: Reviewed. Impression: Major neurocognitive disorder Alzheimer vascular with delusion, depression, behavioral disturbance. Anxiety disorder unspecified. Impulse control disorder unspecified. Plan: No change from initial note. Assessment: Vital Signs/I&O: Vital Signs Date Time Temp Pulse Resp B/P (MAP) Pulse Ox O2 Delivery O2 Flow Rate FiO2 01/07/21 06:43 97.4 69 16 138/78 (98) 96 01/05/21 16:22 Room Air I & O 01/06/21 01/06/21 01/07/21 15:00 23:00 07:00 Intake Total 360 ml 480 ml Balance 360 ml 480 ml Current Medications: Meds: Current Medications Medications (Trade) Dose Ordered Sig/Farideh Route PRN Reason Start Time Stop Time Status Last Admin Dose Admin Acetaminophen (Tylenol) 650 mg PRN Q6HRS PRN PO MILD PAIN / TEMP > 100.3'F 12/18/20 13:15 Multi-Ingredient Ointment (Analgesic [place]) 1 herminio PRN QID PRN TP MUSCLE PAIN 12/18/20 13:15 Al Hydroxide/Mg Hydroxide (Mylanta Plus Xs) 15 ml PRN AFTMEALHC PRN PO DYSPEPSIA 12/18/20 13:15 Magnesium Hydroxide (Milk Of Magnesia) 2,400 mg PRN QHS PRN PO CONSTIPATION 12/18/20 13:15 Bromocriptine Mesylate (Parlodel) 2.5 mg QMWF@0900 PO 12/19/20 09:00 01/04/21 07:48 Bromocriptine Mesylate (Parlodel) 2.5 mg QMWF PO 12/19/20 16:00 12/18/20 13:25 DC Vitamin D (Vitamin D3) 4,000 unit DAILY PO 12/19/20 09:00 01/06/21 07:49 Donepezil HCl (Aricept) 10 mg QHS PO 12/18/20 21:00 01/06/21 19:35 Lactobacillus Rhamnosus (Culturelle) 1 cap BID PO 12/18/20 21:00 01/06/21 19:35 Latanoprost (Xalatan) 1 drop QHS OU 12/18/20 21:00 01/06/21 19:36 Memantine (Namenda) 10 mg BID PO 12/19/20 09:00 01/06/21 19:35 Olanzapine (ZyPREXA) 5 mg PRN Q4HRS PRN PO ANXIETY / AGITATION 12/18/20 13:00 12/19/20 20:59 DC 12/18/20 21:48 Olanzapine (ZyPREXA) 5 mg QHS PO 12/18/20 21:00 12/28/20 07:25 DC 12/27/20 20:56 Quetiapine Fumarate (SEROquel) 25 mg PRN Q6HRS PRN PO ANXIETY / AGITATION 12/18/20 13:00 12/18/20 21:48 Sertraline HCl (Zoloft) 25 mg DAILY PO 12/19/20 09:00 12/29/20 18:17 DC 12/29/20 08:28 Non-Formulary Medication (Fluticasone Propionate (Flovent 50MCG Diskus)) 50 mcg BID NS 12/18/20 21:00 UNV Naproxen (Naprosyn) 500 mg BID PO 12/18/20 21:00 01/06/21 19:35 Budesonide (Pulmicort) 0.5 mg RTBID NEB 12/18/20 20:00 UNV Fluticasone Propionate (Flonase) 2 spray BID NS 12/18/20 21:00 01/06/21 19:36 Trazodone HCl (Desyrel) 50 mg PRN QHS PRN PO INSOMNIA, MAY REPEAT X1 12/18/20 23:15 01/02/21 20:32 Quetiapine Fumarate (SEROquel) 50 mg 1X PRN PRN PO ANXIETY / AGITATION 12/18/20 23:15 Cancel Olanzapine (ZyPREXA ZYDIS) 5 mg PRN Q4HRS PRN PO PSYCHOSIS 12/19/20 21:00 12/28/20 16:17 DC 12/28/20 10:13 Olanzapine (ZyPREXA) 10 mg QHS PO 12/28/20 21:00 01/06/21 19:35 Olanzapine (ZyPREXA ZYDIS) 2.5 mg PRN Q2HR PRN PO PSYCHOSIS 12/28/20 16:15 12/30/20 13:05 Sertraline HCl (Zoloft) 50 mg DAILY PO 12/30/20 09:00 01/06/21 07:49 Divalproex Sodium (Depakote Sprinkles) 125 mg BID@0900,1700 PO 12/30/20 17:00 01/06/21 16:13 I have reviewed the current psychotropics carefully including drug interactions. Risk benefit ratio favors no change other than as noted in my dictated progress note. Diagnosis: Problems: (1) Impulse control disorder, unspecified (2) Anxiety disorder, unspecified (3) Dementia, vascular, with depression (4) Dementia, vascular, with delusions (5) Dementia in Alzheimer's disease with depression (6) Dementia in Alzheimer's disease with delusions (7) Dementia of the Alzheimer's type with early onset with behavioral disturbance (8) Major neurocognitive disorder HELIO RÍOS MD Jan 07, 2021 06:47
[2021-01-07] MEDS: DIVALPROEX 125 MG CAP.SPRINK PO SCH (07:49)
[2021-01-07] MEDS: LACTOBACILLUS RHAMNOSUS GG 1 CAPSULE. PO SCH (07:49)
[2021-01-07] MEDS: MEMANTINE 10 MG TABLET. PO SCH (07:49)
[2021-01-07] MEDS: SERTRALINE 50 MG TABLET. PO SCH (07:49)
[2021-01-07] MEDS: NAPROXEN 500 MG TABLET PO SCH (07:50)
[2021-01-07] MEDS: BROMOCRIPTINE MESYLATE 2.5 MG PO SCH (07:50)
[2021-01-07] MEDS: CHOLECALCIFEROL (VITAMIN D3) 1,000 UNIT TABLET PO SCH (07:50)
[2021-01-07] MEDS: FLUTICASONE 50MCG/NASAL SPRAY 16GM BOTTLE. NS SCH (07:50)
[2021-01-07] MEDS ORDERED: OLAN5TAB99 PO (09:37)
--- NOTE | 2021-01-07 22:12 | PDOC ---
Exam Note: Valente Note: Please also refer to the separate dictated note~for this date of service dictated separately.~Patient seen individually. Discussed the patient with Nursing staff reviewed the chart.~Reviewed interim history and current functioning. Reviewed vital signs,~Labs/ Radiology~and current medications noted below. Continue current treatment with the changes noted in the dictated addendum note Assessment: Vital Signs/I&O: Vital Signs Date Time Temp Pulse Resp B/P (MAP) Pulse Ox O2 Delivery O2 Flow Rate FiO2 01/07/21 06:43 97.4 69 16 138/78 (98) 96 01/05/21 16:22 Room Air I & O 01/06/21 01/06/21 01/07/21 15:00 23:00 07:00 Intake Total 360 ml 480 ml Balance 360 ml 480 ml Current Medications: Meds: Current Medications Medications (Trade) Dose Ordered Sig/Farideh Route PRN Reason Start Time Stop Time Status Last Admin Dose Admin Acetaminophen (Tylenol) 650 mg PRN Q6HRS PRN PO MILD PAIN / TEMP > 100.3'F 12/18/20 13:15 01/07/21 10:11 DC Multi-Ingredient Ointment (Analgesic [place]) 1 herminio PRN QID PRN TP MUSCLE PAIN 12/18/20 13:15 01/07/21 10:11 DC Al Hydroxide/Mg Hydroxide (Mylanta Plus Xs) 15 ml PRN AFTMEALHC PRN PO DYSPEPSIA 12/18/20 13:15 01/07/21 10:11 DC Magnesium Hydroxide (Milk Of Magnesia) 2,400 mg PRN QHS PRN PO CONSTIPATION 12/18/20 13:15 01/07/21 10:11 DC Bromocriptine Mesylate (Parlodel) 2.5 mg QMWF@0900 PO 12/19/20 09:00 01/07/21 10:11 DC 01/07/21 07:50 Bromocriptine Mesylate (Parlodel) 2.5 mg QMWF PO 12/19/20 16:00 12/18/20 13:25 DC Vitamin D (Vitamin D3) 4,000 unit DAILY PO 12/19/20 09:00 01/07/21 10:11 DC 01/07/21 07:50 Donepezil HCl (Aricept) 10 mg QHS PO 12/18/20 21:00 01/07/21 10:11 DC 01/06/21 19:35 Lactobacillus Rhamnosus (Culturelle) 1 cap BID PO 12/18/20 21:00 01/07/21 10:11 DC 01/07/21 07:49 Latanoprost (Xalatan) 1 drop QHS OU 12/18/20 21:00 01/07/21 10:11 DC 01/06/21 19:36 Memantine (Namenda) 10 mg BID PO 12/19/20 09:00 01/07/21 10:11 DC 01/07/21 07:49 Olanzapine (ZyPREXA) 5 mg PRN Q4HRS PRN PO ANXIETY / AGITATION 12/18/20 13:00 12/19/20 20:59 DC 12/18/20 21:48 Olanzapine (ZyPREXA) 5 mg QHS PO 12/18/20 21:00 12/28/20 07:25 DC 12/27/20 20:56 Quetiapine Fumarate (SEROquel) 25 mg PRN Q6HRS PRN PO ANXIETY / AGITATION 12/18/20 13:00 01/07/21 10:11 DC 12/18/20 21:48 Sertraline HCl (Zoloft) 25 mg DAILY PO 12/19/20 09:00 12/29/20 18:17 DC 12/29/20 08:28 Non-Formulary Medication (Fluticasone Propionate (Flovent 50MCG Diskus)) 50 mcg BID NS 12/18/20 21:00 UNV Naproxen (Naprosyn) 500 mg BID PO 12/18/20 21:00 01/07/21 10:11 DC 01/07/21 07:50 Budesonide (Pulmicort) 0.5 mg RTBID NEB 12/18/20 20:00 UNV Fluticasone Propionate (Flonase) 2 spray BID NS 12/18/20 21:00 01/07/21 10:11 DC 01/07/21 07:50 Trazodone HCl (Desyrel) 50 mg PRN QHS PRN PO INSOMNIA, MAY REPEAT X1 12/18/20 23:15 01/07/21 10:11 DC 01/02/21 20:32 Quetiapine Fumarate (SEROquel) 50 mg 1X PRN PRN PO ANXIETY / AGITATION 12/18/20 23:15 Cancel Olanzapine (ZyPREXA ZYDIS) 5 mg PRN Q4HRS PRN PO PSYCHOSIS 12/19/20 21:00 12/28/20 16:17 DC 12/28/20 10:13 Olanzapine (ZyPREXA) 10 mg QHS PO 12/28/20 21:00 01/07/21 10:11 DC 01/06/21 19:35 Olanzapine (ZyPREXA ZYDIS) 2.5 mg PRN Q2HR PRN PO PSYCHOSIS 12/28/20 16:15 01/07/21 10:11 DC 12/30/20 13:05 Sertraline HCl (Zoloft) 50 mg DAILY PO 12/30/20 09:00 01/07/21 10:11 DC 01/07/21 07:49 Divalproex Sodium (Depakote Sprinkles) 125 mg BID@0900,1700 PO 12/30/20 17:00 01/07/21 10:11 DC 01/07/21 07:49 I have reviewed the current psychotropics carefully including drug interactions. Risk benefit ratio favors no change other than as noted in my dictated progress note. Diagnosis: Problems: (1) Impulse control disorder, unspecified (2) Anxiety disorder, unspecified (3) Dementia, vascular, with depression (4) Dementia, vascular, with delusions (5) Dementia in Alzheimer's disease with depression (6) Dementia in Alzheimer's disease with delusions (7) Dementia of the Alzheimer's type with early onset with behavioral disturbance (8) Major neurocognitive disorder HELIO RÍOS MD Jan 07, 2021 22:12
--- NOTE | 2021-01-07 22:59 | DS ---
DATE OF DISCHARGE: 01/07/2021 PSYCHIATRIC PROGRESS NOTE This note covers elements not covered in my initial note of 01/07/2021. REASON FOR ADMISSION: Please refer to the admission history for details. Briefly, the patient is an 80-year-old male referred to us from [facility] by his primary care physician/psychiatrist on account of worsening confusion within the context of his diagnosis of major neurocognitive disorder, Alzheimer, vascular with delusion, depression, behavioral disturbance. I previously started dictating the summary, but got disconnected and this dictation is the entire discharge summary. At the prison, the patient was increasingly agitated, aggressive towards family, worsening confusion, restless, fidgety, was unable to sit still, hyperverbal, unable to focus or follow commands. He was urinating in public, talking about a dog when there was no dog. He had failed outpatient psychiatric interventions. Behaviors were unmanageable at the facility, dangerous resulting in this referral. SIGNIFICANT FINDINGS AND CLINICAL COURSE: Following admission, the patient was seen daily individually by myself from a psychiatric standpoint, medical followup with Dr. Gilbert/Dr. Merritt. Adjustments were made in his psychotropics and he seemed to respond to a combination of Zyprexa 10 mg at bedtime, Aricept 10 mg at bedtime, Namenda 10 mg b.i.d., Zoloft 50 mg a day; Depakote Sprinkles 125 mg 0900, 1700; Seroquel p.r.n., Zyprexa p.r.n. Valproic acid level was subtherapeutic, but he was responding positively and Depakote was not increased. REVIEW OF SYSTEMS: Prior to discharge, no CV, , pulmonary, eye, ENT system symptoms on review. Reliability poor. MENTAL STATUS EXAM: Oriented to himself. Insight, judgment, recent and remote memory, attention, concentration, fund of knowledge poor, consistent with his diagnosis. FINAL DIAGNOSES: Major neurocognitive disorder, Alzheimer, vascular with delusion, depression, behavioral disturbance; anxiety disorder, unspecified; impulse control disorder, unspecified. Rest unchanged from admission. CONDITION AT DISCHARGE: Improved. DISCHARGE MEDICATIONS: Please refer to the MRAD. DISCHARGE INSTRUCTIONS: Outpatient psychiatric and medical followup at the prison. Time for discharge day management greater than 30 minutes. MAN Benjie RÍOS MD DR: Karen JOB#: [id number] / [id number]
== END 2021-01-07 09:55 | DRG 57 ==
LOC: GEROPSY 11:15
PROVIDERS: ADMIT Psychiatry & Neurology Psychiatry; ATTEND Psychiatry & Neurology Psychiatry
DX: G30.9 Alzheimer's disease, unspecified (principal); F01.51 Vascular dementia, unspecified severity, with behavioral disturbance; F02.81 Dementia in other diseases classified elsewhere, unspecified severity, with behavioral disturbance; G91.2 (Idiopathic) normal pressure hydrocephalus; F41.1 Generalized anxiety disorder; D35.2 Benign neoplasm of pituitary gland; F32.9 Major depressive disorder, single episode, unspecified; F63.9 Impulse disorder, unspecified; I48.0 Paroxysmal atrial fibrillation; Z79.899 Other long term (current) drug therapy; Z86.73 Personal history of transient ischemic attack (TIA), and cerebral infarction without residual deficits; Z91.81 History of falling; Z20.822 Contact with and (suspected) exposure to COVID-19
CPT/HCPCS: 36415; 80053; 80061; 80164; 81001; 83540; 83550; 84436; 84480; 85025; U0003; U0005; 97110; 97116; 97530; 97535